=== PATIENT | male | born 1965 | race Caucasian/White ===

== ENCOUNTER 2017-09-09 15:44 | Emergency (ER) | payer OTHER ==
[2017-09-09 16:42] VITALS: BP 146/86; PULSE 82; TEMP 97.7; BMI 18.8
[2017-09-09] MEDS ORDERED: SODIUM CHLORIDE 1,000 ML IV STA (17:03)
[2017-09-09] MEDS ORDERED: MAGNESIUM SULF 50% (8.12 MEQ/2 ML-1 GM VIAL) IVPB ONE (17:03)
[2017-09-09] MEDS ORDERED: MAGNESIUM SULF 50% (8.12 MEQ/2 ML-1 GM VIAL) ONE (17:21)
[2017-09-09 17:24] LABS: MCH 33.6 pg (25.7-33.7); MCHC 33.5 g/dl (32.0-35.9); MEAN CELL VOLUME 100.2 fl (80-96); MEAN PLT VOLUME 8.5 fl (7.5-11.1); PLATELET COUNT 188 K/MM3 (134-434); RDW 14.9 % (11.9-15.9)
[2017-09-09 18:03] LABS: ALBUMIN 4.1 g/dl (3.4-5.0); ALK PHOS 68 U/L (45-117); ANION GAP 11 (8-16); BILIRUBIN,TOTAL 0.4 mg/dL (0.2-1.0); CALCIUM 8.4 mg/dL (8.5-10.1); CO2 21 mmol/L (21-32); CREATININE 0.8 mg/dL (0.7-1.3); GLUCOSE,RANDOM 120 mg/dL (74-106); SGOT/AST 107 U/L (15-37); SGPT/ALT 47 U/L (12-78); TOT PROT 8.4 g/dl (6.4-8.2)
[2017-09-09 18:08] LABS: PLATELET COMMENT2 NO CLOTTING DETECTED; PLATELET ESTIMATE ADEQUATE (NORMAL)
[2017-09-09 18:09] LABS: BASOPHIL (MANUAL) 1 % (0-2.0); REACTIVE LYMPHOCYTES 6 % (0-80); TOTAL CELLS COUNTED 100
--- NOTE | 2017-09-09 18:10 | PDOC ---
History of Present Illness - General Chief Complaint: Alcohol intoxication Stated Complaint: INTOX Time Seen by Provider: 09/09/17 16:31 - History of Present Illness Initial Comments: 09/09/17 18:04 The patient is a 51 year old male with a history of alcohol abuse, polysubstance abuse, DM who presents for evaluation of intoxication. The patient is accompanied by his girlfriend who assists in providing the history. The girlfriend reports that the patient drank a bottle of rum today and was appearing very intoxicated on the couch earlier this evening. She states that he slipped off the couch and fell on the floor. The patient denies falling and denies any pain or injuries. The patient's girlfriend reports that she was concerned that he was going to from alcohol poisoning and called EMS for presentation to the ED for evaluation. The patient denies any fevers, chills, SOB, chest pain, nausea, vomiting, abdominal pain, or changes with urination or bowel movements. Past History - Past Medical History Allergies/Adverse Reactions: Allergies Allergy/AdvReac Type Severity Reaction Status Date / Time No Known Allergies Allergy Verified 09/09/17 16:42 Home Medications: Ambulatory Orders Zolpidem Tartrate [Ambien] 10 mg PO HS PRN #0 tablet 06/27/13 Ramipril [Altace] 10 mg PO DAILY 01/15/15 Levetiracetam [Keppra -] 500 mg PO BID #60 tablet 01/18/15 Amoxicillin - [Amoxicillin 500mg Capsule -] 500 mg PO DAILY 09/30/16 Insulin (Novolog 70/30) [Novolog Mix 70/30 Flexpen -] 8 units SQ DAILY 09/30/16 Naproxen 250 mg PO TID 09/30/16 Anemia: No Asthma: No Diabetes: Yes Disorders: No Liver Disease: No Seizures: Yes Thyroid Disease: No - Immunization History Immunization Up to Date: Yes - Suicide/Smoking/Psychosocial Hx Smoking Status: Yes Smoking History: Unknown if ever smoked Have you smoked in the past 12 months: Yes Number of Cigarettes Smoked Daily: 20 Information on smoking cessation initiated: No 'Breaking Loose' booklet given: 05/03/14 Hx Alcohol Use: No Drug/Substance Use Hx: No Substance Use Type: Alcohol Hx Substance Use Treatment: No Review of Systems - Review of Systems Comments:: 09/09/17 18:08 Constitutional: No fevers, chills, fatigue, malaise HEENT: No Rhinorrhea, nasal congestion, Cardiovascular: No chest pain, syncope, palpitations, lightheadedness Respiratory: No Cough, SOB, Hemoptysis, Gastrointestinal: No Abdominal pain, Nausea, Vomiting, Constipation, Diarrhea, Genitourinary: No Dysuria, Frequency, Urgency, Hesitancy, Hematuria, Musculoskeletal: No Myalgia, arthralgia Skin: No rashes, bruising, pallor Neurologic: No Headache, Dizziness, Numbness, Weakness, or Tingling *Physical Exam - Vital Signs Last Vital Signs Temp Pulse Resp BP Pulse Ox 97.7 F 82 18 146/86 100 09/09/17 15:44 09/09/17 15:44 09/09/17 15:44 09/09/17 15:44 09/09/17 15:44 - Physical Exam Comments: 09/09/17 18:09 General Appearance: Nourished. Intoxicated. Alcohol on breath. No Apparent Distress HEENT: EOMI, PRAVIN. No obvious signs of head trauma. Neck: No Cervical Lymphadenopathy Respiratory/Chest: Lungs Clear, Normal Breath Sounds. No Crackles, Rales, Rhonchi, Wheezing Cardiovascular: Regular Rhythm, Regular Rate. No Murmur, Gallops, Rubs Gastrointestinal/Abdominal: Normal Bowel Sounds, Soft. 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 ED Treatment Course - LABORATORY CBC & Chemistry Diagram: 09/09/17 17:15 09/09/17 17:11 - ADDITIONAL ORDERS Additional order review: 09/09/17 17:15 RBC 3.61 L MCV 100.2 H MCHC 33.5 RDW 14.9 D MPV 8.5 Neutrophils % 31.6 L D Lymphocytes % 59.9 H D Monocytes % 5.5 Eosinophils % 1.7 D Basophils % 1.3 - Medications Given in the ED: ED Medications Discontinued Medications Generic Name Dose Route Start Last Admin Trade Name Freq PRN Reason Stop Dose Admin Sodium Chloride 1,000 mls @ 1,000 mls/hr 09/09/17 17:03 09/09/17 17:26 Normal Saline - IV 09/09/17 18:02 1,000 mls/hr ASDIR STA Administration Magnesium Sulfate 2 gm 09/09/17 17:03 09/09/17 17:26 Magnesium Sulfate IVPB 09/09/17 17:04 2 gm ONCE ONE Administration Medical Decision Making - Medical Decision Making 09/09/17 18:09 The patient is a 51 year old male with a history of alcohol abuse, polysubstance abuse, DM who presents for evaluation of intoxication. The patient is alert on exam although visibly intoxicated. It is likely his symptoms are due to his alcohol use. However given his significant history of DM, we will obtain a cbc, cmp, acetone to evaluate for metabolic derangement and other etiologies. We will hydrate the patient with a 1L NS bolus. We will continue to monitor and reassess. 09/09/17 18:48 cbc, cmp acetone are unremarkable. The patient reports improvement in his symptoms and is able to ambulate without difficulty. 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 We are comfortable discharging the patient home at this time with PCP follow up. We counselled him on the importance of stopping drinking. *DC/Admit/Observation/Transfer Diagnosis at time of Disposition: Intoxication - Discharge Dispostion Disposition: HOME Condition at time of disposition: Improved Admit: No - Referrals Referrals: Cassidy Mac MD [Primary Care Provider] - - Patient Instructions Printed Discharge Instructions: DI for Alcohol Abuse Additional Instructions: Please return to the ER if you experience concerning or worsening symptoms. Please call to schedule a follow up appointment with your primary care provider to discuss your ER visit. Please keep your alcohol consumption to a minimum.
--- NOTE | 2017-09-09 19:06 | PDOC ---
Attending Attestation - Resident Resident Name: YolisHeriberto - ED Attending Attestation I have performed the following: I have examined & evaluated the patient, The case was reviewed & discussed with the resident, I agree w/resident's findings & plan, Exceptions are as noted - HPI HPI: 09/09/17 18:59 51 yo male seated un wheelchair after being BIBA from home for etoh intox, Girlfriend returned home to find him on the sofa and became concerned. The pt said she was celebrating a "special day" with a bottle of rum. Pt is conversant - Physicial Exam PE: 09/10/17 03:32 sl disheveled 51 yo male in no acute distress HEENT head atraumatic, eyes dacia eomi neck supple lungs cta b/l cvs [id number] abd nontender neuro pt was ambulatory and conversant at time of discharge,had AOB - Medical Decision Making 09/10/17 03:35 pt discharged home after girlfriend came and took him home
[2017-09-09 19:32] LABS: URINE MARIJUANA THC NEGATIVE ng/ml (CUTOFF=50)
== END 2017-09-09 19:06 | disposition home or self-care (01) ==
LOC: JER 15:44
PROC: 3E033GC Introduction of Other Therapeutic Substance into Peripheral Vein, Percutaneous Approach (ICD-10-PCS; principal; 2017-09-09)
DX: F10.120 Alcohol abuse with intoxication, uncomplicated (principal); Y90.9 Presence of alcohol in blood, level not specified; E11.9 Type 2 diabetes mellitus without complications; Z79.4 Long term (current) use of insulin; G40.909 Epilepsy, unspecified, not intractable, without status epilepticus
CPT/HCPCS: 36415; 80053; 80307; 82009; 85025; 96374; 99282-25

== ENCOUNTER 2017-12-30 12:41 | Observation (INO) | payer OTHER ==
[2017-12-30] MEDS ORDERED: LORazepam 2 MG/ML SDV VIAL ONE (12:50)
--- NOTE | 2017-12-30 13:12 | PDOC ---
History of Present Illness - General Chief Complaint: Seizure Stated Complaint: SEIZURE Time Seen by Provider: 12/30/17 12:58 - History of Present Illness Initial Comments: 12/30/17 13:23 The patient is a 52 year old male with a history of seizures, alcohol abuse, polysubstance abuse, DM who presents for evaluation of seizures. The patient is accompanied by his girlfriend who assists in providing the history. She reports that the patient was taking his morning medications when he has an episode of difficulty talking prior to experiencing a tonic-clonic seizure lasting 90 seconds. The patient was reportedly post-ictal for 15 min prior to returning to baseline. The patient reports that he has been experiencing cold like symptoms over the past week including body aches and subjective fevers. He notes that he is a daily drinker with his last drink was late yesterday evening. The patient denied chills, SOB, chest pain, nausea, vomiting, abdominal pain, or changes with urination or bowel movements. The patient proceeded to have another tonic-clonic seizure while history was being taking in the ED and received 2mg of ativan with the seizure breaking. The patient is now in a post-ictal state. The patient's last seizure was reportedly 2 years ago. Past History - Past Medical History Allergies/Adverse Reactions: Allergies Allergy/AdvReac Type Severity Reaction Status Date / Time No Known Allergies Allergy Verified 12/30/17 13:02 Home Medications: Ambulatory Orders Zolpidem Tartrate [Ambien] 10 mg PO HS PRN #0 tablet 06/27/13 Ramipril [Altace] 10 mg PO DAILY 01/15/15 levETIRAcetam [Keppra -] 500 mg PO BID #60 tablet 01/18/15 Amoxicillin - [Amoxicillin 500mg Capsule -] 500 mg PO DAILY 09/30/16 Insulin (Novolog 70/30) [Novolog Mix 70/30 Flexpen -] 8 units SQ DAILY 09/30/16 Naproxen 250 mg PO TID 09/30/16 Anemia: No Asthma: No COPD: No Diabetes: Yes Disorders: No Liver Disease: No Seizures: Yes Thyroid Disease: No Other medical history: alcoholism drinks a lot everyday. - Immunization History Immunization Up to Date: Yes - Suicide/Smoking/Psychosocial Hx Smoking Status: Yes Smoking History: Unknown if ever smoked Have you smoked in the past 12 months: Yes Number of Cigarettes Smoked Daily: 20 Information on smoking cessation initiated: No 'Breaking Loose' booklet given: 05/03/14 Hx Alcohol Use: No Drug/Substance Use Hx: No Substance Use Type: Alcohol Hx Substance Use Treatment: No Review of Systems - Review of Systems Comments:: 12/30/17 13:31 Constitutional: Body aches. No chills, fatigue, HEENT: No Rhinorrhea, nasal congestion, visual changes Cardiovascular: No chest pain, syncope, palpitations, lightheadedness Respiratory: No Cough, SOB, Hemoptysis, Gastrointestinal: No Abdominal pain, Nausea, Vomiting, Constipation, Diarrhea, Melena Genitourinary: No Dysuria, Frequency, Urgency, Hesitancy, Hematuria, Flank pain Musculoskeletal: No Myalgia, arthralgia Skin: No rashes, itching, bruising, pallor Neurologic: Seizure. No Headache, Dizziness, Numbness, Weakness, or Tingling Psychiatric: No Hallucinations. No SI or HI *Physical Exam - Vital Signs Last Vital Signs Temp Pulse Resp BP Pulse Ox 99.4 F 130 H 8 L 142/56 75 L 12/30/17 13:03 12/30/17 12:50 12/30/17 12:50 12/30/17 12:50 12/30/17 12:50 - Physical Exam Comments: 12/30/17 13:32 General Appearance: Nourished. No Apparent Distress HEENT: EOMI, PRAVIN. No Pharyngeal Erythema, Tonsillar Exudate, Tonsillar Erythema Neck: No Cervical Lymphadenopathy Respiratory/Chest: Lungs Clear, Normal Breath Sounds. No Crackles, Rales, Rhonchi, Wheezing Cardiovascular: Regular Rhythm, Regular Rate. No Murmur, Gallops, Rubs Gastrointestinal/Abdominal: Normal Bowel Sounds, Soft. 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 Heart Score/ECG Review #1 ECG reviewed & interpreted by me at: 14:57 General ECG Interpretation: Sinus Rhythm, Normal Rate, Normal Intervals, No acute ischemic changes ED Treatment Course - LABORATORY CBC & Chemistry Diagram: 12/30/17 13:15 12/30/17 13:15 - RADIOLOGY Radiology Studies Ordered: Category Date Time Status CHEST X-RAY PORTABLE* [RAD] Stat Radiology 12/30/17 12:59 Ordered Medical Decision Making - Medical Decision Making 12/30/17 13:42 The patient is a 52 year old male with a history of seizures, alcohol abuse, polysubstance abuse, DM who presents for evaluation of seizures. Differential includes but is not limited to: Infectious, Hyperglycemia, Break through seizure , metabolic derangement. The patient had a witnessed seizure here in the ED with it breaking with 2mg of ativan. We will obtain a cbc, cmp, alcohol level, chest plain film, head ct to evaluate for other etiologies. Dr. Mac requested consultation with Dr. Mccarthy with neurology given that this is a change from baseline. Dr. Valderrama is covering for Dr. Mccarthy and we discussed the case with Dr. Valderrama who recommended that we give 500mg of iv keppra here in the ED and he will evaluate the patient. We will continue to monitor and reassess. 12/30/17 17:01 CBC, cmp, alcohol level are unremarkable. Chest plain film and head CT are unremarkable as read by our radiologist. The patient's lactate is elevated likely due to his seizure here in the ED and we will repeat it. We discussed the case with Dr. Mac who accepted the patient for admission. *DC/Admit/Observation/Transfer Diagnosis at time of Disposition: Seizure Qualifiers: Convulsion type: unspecified Qualified Code(s): R56.9 - Unspecified convulsions - Discharge Dispostion Condition at time of disposition: Stable Admit: Yes - Referrals Referrals: Cassidy Mac MD [Primary Care Provider] - - Patient Instructions - Post Discharge Activity
[2017-12-30] MEDS ORDERED: levETIRAcetam 500 MG/5 ML INJECTION VIAL IVPB ONE ×2 (13:37→13:56)
[2017-12-30 14:23] LABS: BASO % 1.1 % (0-2.0); EOS % 1.8 % (0-4.5); HEMATOCRIT 33.7 % (35.4-49); HEMOGLOBIN 10.7 GM/dL (11.7-16.9); LYMPH % 34.3 % (8-40); MCH 32.7 pg (25.7-33.7); MCHC 31.7 g/dl (32.0-35.9); MEAN CELL VOLUME 103.3 fl (80-96); NEUT % 51.8 % (42.8-82.8); PLATELET COUNT 139 K/MM3 (134-434); RBC 3.26 M/mm3 (4.00-5.60); RDW 14.4 % (11.9-15.9); WHITE BLOOD COUNT 7.9 K/mm3 (4.0-10.0)
--- NOTE | 2017-12-30 14:28 | PDOC ---
Attending Attestation - Resident Resident Name: Heriberto Lagos - ED Attending Attestation I have performed the following: I have examined & evaluated the patient, The case was reviewed & discussed with the resident, I agree w/resident's findings & plan, Exceptions are as noted - HPI HPI: 12/30/17 14:23 52 year old male c/ pmh seizure disorder on keppra (reportedly adherent), alcohol abuse, DM, left foot wound BIBEMS seizure. Today, the patient started to have one episode of grand mal seizure. The patient was postictal and EMS was activated. Last alcohol use was yesterday, but pt's girlfriend doesn't think he was tremulous. He has been having some URI-like symptoms and has been caring to his chronic left foot wound. While in the ED, the patient had another episode of grand mal seizure that resolved on its own. Pt given 2 mg IV ativan. And pt was postical. Denies cough, vomiting, diarrhea. - Physicial Exam PE: 12/30/17 14:26 GENERAL: Awake but post-ictal in no acute distress. HEAD: No signs of trauma EYES: PERRLA, EOMI, sclera anicteric, conjunctiva clear ENT: Auricles normal inspection, hearing grossly normal, nares patent, NECK: Normal ROM, supple, no lymphadenopathy, JVD, or masses LUNGS: Breath sounds equal, clear to auscultation bilaterally. No wheezes, and no crackles HEART: Regular rate and rhythm, normal S1 and S2, no murmurs, rubs or gallops ABDOMEN: Soft, nontender. No guarding, no rebound. No masses EXTREMITIES: Normal range of motion, no edema. No clubbing or cyanosis. No cords, erythema, or tenderness NEUROLOGICAL: Cranial nerves II through XII grossly intact. Appears to be moving all extremities grossly. SKIN: ~2x2 cm left plantar surface foot ulcer - Medical Decision Making 12/30/17 14:27 Vital Signs Temp Pulse Resp BP Pulse Ox 99.4 F 91 H 18 140/75 100 12/30/17 13:03 12/30/17 14:03 12/30/17 14:03 12/30/17 14:03 12/30/17 14:03 Pt likely with seizure likely 2/2 with epilepsy. Will r/o secondary causes i.e. hypoglycemia, hyponatremia. Dr. Lagos discussed case with Dr. Valderrama (neuro). Will start IV keppra. Neuro checks. Given multiple seizures in one day, admission to the hospital. Heart Score/ECG Review #1 ECG reviewed & interpreted by me at: 13:50 12/30/17 14:52 NSR 96, no std/adis, normal axis, normal intervals, QTC 452 msec
[2017-12-30 14:48] LABS: ALBUMIN 3.5 g/dl (3.4-5.0); ALK PHOS 77 U/L (45-117); ANION GAP 21 (8-16); BILIRUBIN,TOTAL 0.3 mg/dL (0.2-1.0); BLOOD UREA NITROGEN 13 mg/dL (7-18); CALCIUM 8.9 mg/dL (8.5-10.1); CHLORIDE 101 mmol/L (98-107); CO2 15 mmol/L (21-32); CREATININE 1.1 mg/dL (0.7-1.3); GLUCOSE,RANDOM 65 mg/dL (74-106); POTASSIUM 3.4 mmol/L (3.5-5.1); SGOT/AST 100 U/L (15-37); SGPT/ALT 44 U/L (12-78); SODIUM 137 mmol/L (136-145); TOT PROT 7.9 g/dl (6.4-8.2)
--- NOTE | 2017-12-30 16:01 | CONSULT ---
Consult - text type - Consultation Consultation Note: Neurology History of Present Illness The patient is a 52 year old male with a history of seizures, alcohol abuse, polysubstance abuse, DM who presents for evaluation of seizures. Reportedly, the patient was taking his morning medications when he has an episode of difficulty talking prior to experiencing a tonic-clonic seizure lasting 90 seconds. The patient was reportedly post-ictal for 15 min prior to returning to baseline. The patient reports that he has been experiencing cold like symptoms over the past week including body aches and subjective fevers. He notes that he is a daily drinker with his last drink was late yesterday evening and not considered etoh withdrawal seizure. The patient denied chills, SOB, chest pain, nausea, vomiting, abdominal pain, or changes with urination or bowel movements. The patient proceeded to have another tonic-clonic seizure while history was being taking in the ED and received 2mg of ativan with the seizure breaking. The patient did have post-ictal fatigue. Seen in ER and no abnormal movements. He was arousable and interactive. On, cammyr and advised ER to give additional dose of 500mg, should also increase to 750mg twice daily. CT head completed and without acute changes noted. Past History - Past Medical History Allergies/Adverse Reactions: Allergies Allergy/AdvReac Type Severity Reaction Status Date / Time No Known Allergies Allergy Verified 12/30/17 13:02 Home Medications: Ambulatory Orders Zolpidem Tartrate [Ambien] 10 mg PO HS PRN #0 tablet 06/27/13 Ramipril [Altace] 10 mg PO DAILY 01/15/15 levETIRAcetam [Keppra -] 500 mg PO BID #60 tablet 01/18/15 Amoxicillin - [Amoxicillin 500mg Capsule -] 500 mg PO DAILY 09/30/16 Insulin (Novolog 70/30) [Novolog Mix 70/30 Flexpen -] 8 units SQ DAILY 09/30/16 Naproxen 250 mg PO TID 09/30/16 Anemia: No Asthma: No COPD: No Diabetes: Yes Disorders: No Liver Disease: No Seizures: Yes Thyroid Disease: No Other medical history: alcoholism drinks a lot everyday. - Immunization History Immunization Up to Date: Yes - Suicide/Smoking/Psychosocial Hx Smoking Status: Yes Smoking History: Unknown if ever smoked Have you smoked in the past 12 months: Yes Number of Cigarettes Smoked Daily: 20 Information on smoking cessation initiated: No 'Breaking Loose' booklet given: 05/03/14 Hx Alcohol Use: No Drug/Substance Use Hx: No Substance Use Type: Alcohol Hx Substance Use Treatment: No Review of Systems Constitutional: Body aches. No chills, fatigue, HEENT: No Rhinorrhea, nasal congestion, visual changes Cardiovascular: No chest pain, syncope, palpitations, lightheadedness Respiratory: No Cough, SOB, Hemoptysis, Gastrointestinal: No Abdominal pain, Nausea, Vomiting, Constipation, Diarrhea, Melena Genitourinary: No Dysuria, Frequency, Urgency, Hesitancy, Hematuria, Flank pain Musculoskeletal: No Myalgia, arthralgia Skin: No rashes, itching, bruising, pallor Neurologic: Seizure. No Headache, Dizziness, Numbness, Weakness, or Tingling Psychiatric: No Hallucinations. No SI or HI *Physical Exam Vital Signs Temperature 99.4 F 12/30/17 13:03 Pulse Rate 91 H 12/30/17 14:03 Respiratory Rate 18 12/30/17 14:03 Blood Pressure 140/75 12/30/17 14:03 O2 Sat by Pulse Oximetry (%) 100 12/30/17 14:03 General Appearance: Nourished. No Apparent Distress HEENT: EOMI, PRAVIN. No Pharyngeal Erythema, Tonsillar Exudate, Tonsillar Erythema Neck: No Cervical Lymphadenopathy Respiratory/Chest: Lungs Clear, Normal Breath Sounds. No Crackles, Rales, Rhonchi, Wheezing Cardiovascular: Regular Rhythm, Regular Rate. No Murmur, Gallops, Rubs Gastrointestinal/Abdominal: Normal Bowel Sounds, Soft. 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, Alert, Normal Mood/Affect, Motor Strength 5/ 5, sensory intact, gait deferred CBCD WBC 7.9 K/mm3 (4.0-10.0) 12/30/17 13:15 RBC 3.26 M/mm3 (4.00-5.60) L 12/30/17 13:15 Hgb 10.7 GM/dL (11.7-16.9) L D 12/30/17 13:15 Hct 33.7 % (35.4-49) L 12/30/17 13:15 MCV 103.3 fl (80-96) H 12/30/17 13:15 MCHC 31.7 g/dl (32.0-35.9) L 12/30/17 13:15 RDW 14.4 % (11.9-15.9) 12/30/17 13:15 Plt Count 139 K/MM3 (134-434) D 12/30/17 13:15 MPV 9.0 fl (7.5-11.1) 12/30/17 13:15 CMP Sodium 137 mmol/L (136-145) 12/30/17 13:15 Potassium 3.4 mmol/L (3.5-5.1) L 12/30/17 13:15 Chloride 101 mmol/L (98-107) 12/30/17 13:15 Carbon Dioxide 15 mmol/L (21-32) L D 12/30/17 13:15 Anion Gap 21 (8-16) H 12/30/17 13:15 BUN 13 mg/dL (7-18) D 12/30/17 13:15 Creatinine 1.1 mg/dL (0.7-1.3) D 12/30/17 13:15 Creat Clearance w eGFR > 60 (>60) 12/30/17 13:15 Calcium 8.9 mg/dL (8.5-10.1) 12/30/17 13:15 Total Bilirubin 0.3 mg/dL (0.2-1.0) D 12/30/17 13:15 AST 100 U/L (15-37) H 12/30/17 13:15 ALT 44 U/L (12-78) 12/30/17 13:15 Alkaline Phosphatase 77 U/L (45-117) 12/30/17 13:15 Total Protein 7.9 g/dl (6.4-8.2) 12/30/17 13:15 Albumin 3.5 g/dl (3.4-5.0) 12/30/17 13:15 - RADIOLOGY CT head without acute changes Medical Decision Making 52 year old male with a history of seizures, alcohol abuse, polysubstance abuse , DM who presents for evaluation of seizures. Seen in ER and no abnormal movements. He was arousable and interactive. On keppra and advised ER to give additional dose of 500mg Should also increase Keppra to 750mg twice daily CT head completed and without acute changes noted Monitor for further seizures PO/IV hydration Monitor Etoh withdrawal Alcohol cessation recommended Tight glycemic control Maintain euglycemic state Monitor lyte
[2017-12-31 10:11] VITALS: BP 122/77; PULSE 78; TEMP 98.6
[2017-12-31 10:50] VITALS: BMI 18.8
--- NOTE | 2017-12-31 23:24 | EKG ---
Test Reason : Blood Pressure : / mmHG Vent. Rate : 096 BPM Atrial Rate : 096 BPM P-R Int : 156 ms QRS Dur : 088 ms QT Int : 358 ms P-R-T Axes : 076 074 067 degrees QTc Int : 452 ms NORMAL SINUS RHYTHM NONSPECIFIC ST ABNORMALITY ABNORMAL ECG WHEN COMPARED WITH ECG OF 15-JAN-2015 22:01, NO SIGNIFICANT CHANGE WAS FOUND Confirmed by PARAS MCKEON MD ([id number]) on 12/31/2017 11:24:16 PM Referred By: Confirmed By:PARAS MCKEON MD
== END 2017-12-31 10:15 | disposition home or self-care (01) ==
LOC: JER 12:41 → JERBED 17:14
PROVIDERS: ADMIT Internal Medicine; ATTEND Internal Medicine
PROC: 3E033GC Introduction of Other Therapeutic Substance into Peripheral Vein, Percutaneous Approach (ICD-10-PCS; principal; 2017-12-30)
DX: G40.802 Other epilepsy, not intractable, without status epilepticus (principal); E11.9 Type 2 diabetes mellitus without complications; F10.10 Alcohol abuse, uncomplicated; F19.10 Other psychoactive substance abuse, uncomplicated; Z79.4 Long term (current) use of insulin
CPT/HCPCS: 36415; 70450-TC; 71045-TC-FY; 80053; 80307; 83605; 85025; 93005; 93010; 96374; 96375; 99285-25; G0378

== ENCOUNTER 2018-03-31 15:10 | Inpatient (IN) | payer OTHER ==
[2018-03-31] MEDS ORDERED: PIPERACILLIN/TAZOB 3.375 GM 3.375 GM in DEXTROSE 5%-WATER - 50 ML IVPB ONE (16:32)
[2018-03-31] MEDS ORDERED: VANCOMYCIN 1,000 MG in DEXTROSE 5%-WATER - 250 ML IVPB ONE (16:32)
--- NOTE | 2018-03-31 16:35 | PDOC ---
Attending Attestation - HPI HPI: 03/31/18 16:37 The patient is a 52 year old male with a significant past medical history of seizure disorder, alcohol dependence and diabetes who presents to the ED with several months of a non healing wound on his foot. Patient reports several months of a wound to his left foot. He states his wound is progressively worsening, now swollen and erythematous. Patient states he has never been to wound care. Denies any other symptoms. Documentation prepared by Tabitha Briggs, acting as medical van driver for Carrie Fuentes MD - Physicial Exam PE: 03/31/18 16:38 GENERAL: + Cachectic Awake and alert. No acute distress. HEENT: Normocephalic, atraumatic. PERRLA, EOMI. No conjunctival pallor. Sclera are non- icteric. Moist mucous membranes. Oropharynx is clear. NECK: Supple. Full ROM. No JVD. Carotid pulses 2+ and symmetric, without bruits. No thyromegaly. No lymphadenopathy. CARDIOVASCULAR: + tachycardic, regular rhythm. No murmurs, rubs, or gallops. Distal pulses are 2+ and symmetric. PULMONARY: No evidence of respiratory distress. Lungs clear to auscultation bilaterally. No wheezing, rales or rhonchi. ABDOMINAL: Soft. Non-tender. Non-distended. No rebound or guarding. No organomegaly. Normoactive bowel sounds. MUSCULOSKELETAL Normal range of motion at all joints. No bony deformities or tenderness. No CVA tenderness. EXTREMITIES: + swollen left foot with a 2x2 cm left plantar foot ulcer that appears infectious. Left foot is erythematous. There is DP pulse. Full ROM of all extremities. SKIN: Warm and dry. Normal capillary refill. No rashes. No jaundice. NEUROLOGICAL: Alert, awake, appropriate. Cranial nerves 2-12 intact. No deficits to light touch and temperature in face, upper extremities and lower extremities. No motor deficits in the in face, upper extremities and lower extremities. Normoreflexic in the upper and lower extremities. Normal speech. Toes are down- going bilaterally. Gait is normal without ataxia. PSYCHIATRIC: Cooperative. Good eye contact. Appropriate mood and affect. <Tabitha Briggs - Last Filed: 03/31/18 16:37> - Resident Resident Name: Alfredo Haro - ED Attending Attestation I have performed the following: I have examined & evaluated the patient, The case was reviewed & discussed with the resident, I agree w/resident's findings & plan, Exceptions are as noted - HPI HPI: 03/31/18 16:34 52 yo male p/w swollen,tender erythematous left foot - Medical Decision Making 03/31/18 17:57 IMP- left foot cellulitis ,,chronic anemia.alcoholism -lactic acid 2.3 ADMIT med/surg <Carrie Fuentes - Last Filed: 03/31/18 17:59>
[2018-03-31] MEDS ORDERED: PIPERACILLIN/TAZOB 3.375 GM 3.375 GM/50 ML BAG IVPB ONE (17:03)
[2018-03-31] MEDS ORDERED: VANCOMYCIN 1 GRAM (PRE-DOCKED) 1,000 MG/250 ML BAG IVPB ONE (17:03)
[2018-03-31 17:25] LABS: HEMATOCRIT 27.6 % (35.4-49); HEMOGLOBIN 9.2 GM/dL (11.7-16.9); MCH 34.8 pg (25.7-33.7); MCHC 33.3 g/dl (32.0-35.9); MEAN CELL VOLUME 104.6 fl (80-96); MEAN PLT VOLUME 8.3 fl (7.5-11.1); PLATELET COUNT 165 K/MM3 (134-434); RBC 2.64 M/mm3 (4.00-5.60); RDW 13.7 % (11.9-15.9)
--- NOTE | 2018-03-31 17:35 | PDOC ---
History of Present Illness - General Chief Complaint: Loss of Appetite Stated Complaint: LOSS OF APPETITE Time Seen by Provider: 03/31/18 16:14 History Source: Patient Exam Limitations: No Limitations - History of Present Illness Initial Comments: 03/31/18 17:22 Patient is a 52M with history of seizures, alcohol abuse, polysubstance abuse and diabetes here today complaining of a wound to the inferior aspect of his left foot. He states that he is coming in today because the pain has increased in his left foot. Denies fevers, chills. Endorses nausea and decreased appetite. Denies vomiting. Patient states that his primary care doctor has been taking care of this wound, denies going to wound care. Patient's last drink was last night, drinks as much as he can afford daily. Past History - Past Medical History Allergies/Adverse Reactions: Allergies Allergy/AdvReac Type Severity Reaction Status Date / Time No Known Allergies Allergy Verified 03/31/18 15:20 Home Medications: Ambulatory Orders Zolpidem Tartrate [Ambien] 10 mg PO HS PRN #0 tablet 06/27/13 Ramipril [Altace] 10 mg PO DAILY 01/15/15 levETIRAcetam [Keppra -] 500 mg PO BID #60 tablet 01/18/15 Amoxicillin - [Amoxicillin 500mg Capsule -] 500 mg PO DAILY 09/30/16 Insulin (Novolog 70/30) [Novolog Mix 70/30 Flexpen -] 8 units SQ DAILY 09/30/16 Naproxen 250 mg PO TID 09/30/16 Anemia: No Asthma: No COPD: No Diabetes: Yes Disorders: No Liver Disease: No Seizures: Yes Thyroid Disease: No - Immunization History Immunization Up to Date: Yes - Suicide/Smoking/Psychosocial Hx Smoking Status: Yes Smoking History: Unknown if ever smoked Have you smoked in the past 12 months: Yes Number of Cigarettes Smoked Daily: 20 Information on smoking cessation initiated: No 'Breaking Loose' booklet given: 05/03/14 Hx Alcohol Use: No Drug/Substance Use Hx: No Substance Use Type: Alcohol Hx Substance Use Treatment: No Review of Systems - Review of Systems Comments:: 03/31/18 17:35 GENERAL/CONSTITUTIONAL: No fever or chills. No weakness. HEAD, EYES, EARS, NOSE AND THROAT: No change in vision. No sore throat. CARDIOVASCULAR: No chest pain or shortness of breath RESPIRATORY: No cough, wheezing, or hemoptysis. GASTROINTESTINAL: Positive for nausea. Negative for vomiting, diarrhea or constipation. GENITOURINARY: No dysuria, frequency, or change in urination. MUSCULOSKELETAL: Positive for left foot pain. No neck or back pain. SKIN: No rash NEUROLOGIC: No headache, vertigo, loss of consciousness, or change in strength/ sensation. HEMATOLOGIC/LYMPHATIC: No anemia, easy bleeding, or history of blood clots. ALLERGIC/IMMUNOLOGIC: No hives or skin allergy. *Physical Exam - Vital Signs Last Vital Signs Temp Pulse Resp BP Pulse Ox 98.1 F 110 H 20 118/69 100 03/31/18 15:16 03/31/18 15:16 03/31/18 15:16 03/31/18 15:16 03/31/18 15:16 - Physical Exam Comments: 03/31/18 17:35 GENERAL: Awake, alert, and fully oriented, in no acute distress L FOOT: 2x2cm area of ulceration with deep defect, tender diffusely, erythematous to ankle. 2+ dp pulse, normal ROM HEAD: No signs of trauma, normocephalic, atraumatic EYES: PERRLA, EOMI, sclera anicteric, conjunctiva clear ENT: Auricles normal inspection, hearing grossly normal, nares patent, oropharynx clear without exudates. Moist mucosa LUNGS: No distress, speaks full sentences, clear to auscultation bilaterally HEART: Regular rate and rhythm, normal S1 and S2, no murmurs, rubs or gallops, peripheral pulses normal and equal bilaterally. ABDOMEN: Soft, nontender, normoactive bowel sounds. No guarding, no rebound. No masses NEUROLOGICAL: Cranial nerves II through XII grossly intact. Normal speech, no focal sensorimotor deficits SKIN: Warm, Dry, normal turgor, no rashes or lesions noted. ED Treatment Course - LABORATORY CBC & Chemistry Diagram: 03/31/18 17:18 03/31/18 17:18 - RADIOLOGY Radiology Studies Ordered: Category Date Time Status CHEST X-RAY PORTABLE* [RAD] Stat Radiology 03/31/18 16:30 Taken FOOT-LEFT [RAD] Stat Radiology 03/31/18 16:30 Taken - Medications Given in the ED: ED Medications Discontinued Medications Generic Name Dose Route Start Last Admin Trade Name Freq PRN Reason Stop Dose Admin Piperacillin Sod/Tazobactam 50 mls @ 100 mls/hr 03/31/18 16:32 03/31/18 17:18 Sod 3.375 gm/ Dextrose IVPB 03/31/18 17:01 100 mls/hr ONCE ONE Administration Protocol Medical Decision Making - Medical Decision Making 03/31/18 17:37 Patient is 52M with history of DM, seizures, alcohol abuse, polysubstance abuse here today with diabetic foot wound. Vital signs notable for tachycardia. Afebrile. Will evaluate for possible osteo. Will treat with fluids, vanc, zosyn. 03/31/18 17:55 Laboratory Tests 03/31/18 03/31/18 03/31/18 07:05 17:18 17:18 WBC 7.0 Hgb 9.2 L D Plt Count 165 INR 1.19 H BUN 7 D Creatinine 0.7 D Random Glucose 72 L Troponin I < 0.02 C-Reactive Protein < 0.3 03/31/18 18:06 EKG shows normal sinus rhythm with rate of 85. No st elevations/depressions. No significant t wave abnormalities. Normal QRS/MO/QTc intervals. CXR clear, no signs of osteo on foot x-ray. Admitted via Dr Mabry. *DC/Admit/Observation/Transfer Diagnosis at time of Disposition: Diabetic foot ulcer - Discharge Dispostion Condition at time of disposition: Stable Decision to Admit order: Yes - Referrals Referrals: Cassidy Mac MD [Primary Care Provider] - - Patient Instructions - Post Discharge Activity
[2018-03-31 17:36] LABS: INR 1.19 (0.82-1.09); PROTHROMBIN TIME (PATIENT) 13.4 SEC (9.7-13.0)
[2018-03-31 17:46] LABS: ALBUMIN 3.4 g/dl (3.4-5.0); ANION GAP 8 (8-16); BILIRUBIN,TOTAL 0.4 mg/dL (0.2-1.0); BLOOD UREA NITROGEN 7 mg/dL (7-18); CALCIUM 8.1 mg/dL (8.5-10.1); CHLORIDE 108 mmol/L (98-107); CO2 20 mmol/L (21-32); CREATININE 0.7 mg/dL (0.7-1.3); GLUCOSE,RANDOM 72 mg/dL (74-106); POTASSIUM 3.9 mmol/L (3.5-5.1); SGOT/AST 63 U/L (15-37); SGPT/ALT 33 U/L (12-78); SODIUM 136 mmol/L (136-145); TOT PROT 7.8 g/dl (6.4-8.2)
[2018-03-31 17:48] LABS: ALK PHOS 69 U/L (45-117)
[2018-03-31] MEDS ORDERED: ACETAMINOPHEN 1000 MG/100 ML VIAL (NON FORMULARY) IVPB ONE (17:55)
[2018-03-31] MEDS ORDERED: SODIUM CHLORIDE 1,000 ML IV STA (17:55)
[2018-03-31] MEDS ORDERED: ACETAMINOPHEN INJECTION 100 ML IVPB ONE (17:56)
[2018-03-31 19:08] LABS: ERYTHROCYTE SEDIMENTATION RATE 44 mm/hr (0-20)
[2018-03-31] MEDS: SODIUM CHLORIDE 1,000 ML IV SCH (22:45)
[2018-03-31] MEDS ORDERED: levETIRAcetam 500 MG/5 ML INJECTION VIAL IVPB ONE (22:59)
--- NOTE | 2018-03-31 23:00 | RAPID ---
Physical Examination Vital Signs: Vital Signs Temperature 98.1 F 03/31/18 21:04 Pulse Rate 89 03/31/18 21:04 Respiratory Rate 18 03/31/18 21:04 Blood Pressure 118/69 03/31/18 15:16 O2 Sat by Pulse Oximetry (%) 100 03/31/18 21:04 Findings/Remarks: Rapid response called at 10:55pm, report given that patient having a seizure. On presentation, patient was post ictal, laying on his side. Physical Exam: Vitals HR: 98 BP: 157/73 O2 saturation: 100% 2L NC General: patient is somnolent, not responding to questioning Heart: RRR no murmurs Lungs: CTA Assessment: generalized seizure Plan: -2mg ativan given -loading dose keppra 1000mg -CBC, CMP, troponin, EKG -monitor HR/BP -urine toxicology -start on ativan detox for alcohol Labs: CBC, BMP 03/31/18 17:18 03/31/18 17:18
[2018-04-01 00:04] LABS: COCAINE, UR NEGATIVE ng/ml (CUTOFF=300); METHADONE, UR NEGATIVE ng/ml (CUTOFF=300); OPIATES, URI NEGATIVE ng/ml (CUTOFF=300); PHENCYCLIDINE,URINE NEGATIVE ng/ml (CUTOFF=25); URINE AMPHETAMINES NEGATIVE ng/ml (CUTOFF=500); URINE BARBITURATES NEGATIVE ng/ml (CUTOFF=200); URINE BENZODIAZEPINES NEGATIVE ng/ml (CUTOFF=200)
[2018-04-01 01:54] LABS: HEMATOCRIT 24.5 % (35.4-49); HEMOGLOBIN 8.1 GM/dL (11.7-16.9); MCH 34.6 pg (25.7-33.7); MCHC 33.2 g/dl (32.0-35.9); MEAN CELL VOLUME 104.3 fl (80-96); MEAN PLT VOLUME 8.5 fl (7.5-11.1); PLATELET COUNT 149 K/MM3 (134-434); RBC 2.35 M/mm3 (4.00-5.60); RDW 13.5 % (11.9-15.9); WHITE BLOOD COUNT 6.1 K/mm3 (4.0-10.0)
[2018-04-01] MEDS ORDERED: PIPERACILLIN/TAZOBACTAM 3.375 GM VIAL IVPB ONE ×2 (01:57→09:54)
[2018-04-01] MEDS ORDERED: DEXTROSE 5%-WATER - 50 ML IVPB ONE ×2 (01:58→09:54)
[2018-04-01] MEDS: PIPERACILLIN/TAZOB 3.375 GM 3.375 GM in DEXTROSE 5%-WATER - 50 ML IVPB SCH ×2 (02:16→09:57)
[2018-04-01 02:19] LABS: ALBUMIN 2.9 g/dl (3.4-5.0); ANION GAP 6 (8-16); BLOOD UREA NITROGEN 6 mg/dL (7-18); CALCIUM 7.3 mg/dL (8.5-10.1); CHLORIDE 107 mmol/L (98-107); CO2 24 mmol/L (21-32); GLUCOSE,RANDOM 107 mg/dL (74-106); MAGNESIUM 1.4 mg/dL (1.8-2.4); POTASSIUM 3.7 mmol/L (3.5-5.1); SODIUM 137 mmol/L (136-145)
[2018-04-01 03:18] LABS: ALK PHOS 58 U/L (45-117); BILIRUBIN,TOTAL 0.5 mg/dL (0.2-1.0); CREATININE 0.7 mg/dL (0.7-1.3); PHOSPHOROUS 2.9 mg/dL (2.5-4.9); SGOT/AST 54 U/L (15-37); TOT PROT 6.3 g/dl (6.4-8.2)
[2018-04-01 03:33] LABS: SGPT/ALT 27 U/L (12-78)
[2018-04-01] MEDS: INSULIN SLIDING SCALE (NOVOLOG) 1 VIAL SQ SCH ×4 (06:15→21:59)
[2018-04-01] MEDS ORDERED: PT OWN MED DRAWER 7, Y5N ONE ×2 (06:47→14:52)
--- NOTE | 2018-04-01 09:04 | CONSULT ---
Consult Detox [facility] Reason for Current Admission/Consult: substances use Referred by:: marcelle stover - History History of Present Illness: 52 year old male with a significant past medical history of seizure disorder, alcohol use disorder, drinks as much as he can, and diabetes who presents to the ED with several months of a non healing wound on his foot. Patient reports several months of a wound to his left foot. He states his wound is progressively worsening, now swollen and erythematous. Had seizure started on ativan/keppra, now stable. - History Source History Provided By: Medical Record - Alcohol/Substance Use Hx Alcohol Use: No - Current Drug/Alcohol Use Alcohol Route: Oral Frequency: Daily Amount used: as much as he can Date of Last Use: 03/31/18 - Past Medical History Endocrine: Yes: Diabetes Mellitus Assessment Plan - Diagnosis (1) Alcohol dependence with uncomplicated withdrawal Status: Acute (2) Diabetic foot ulcer Status: Acute (3) Alcoholic cirrhosis of liver Status: Acute (4) Pancreatitis, chronic Status: Acute (5) Seizure Status: Acute Qualifiers: Convulsion type: unspecified Qualified Code(s): R56.9 - Unspecified convulsions - Plan Plan: chart, labs, imaging reviewed. patient s/p seizure - alcohol withdrawwal seizure vs epilepsy. cont keppra, start libirum detox as ordered, use rn doses liberally, may use ativan iv if seizures recur. When medically stable consider inpatient rehab at [facility] if be available and insurance is accepted. fluids, vitamins, control glucose. - Medication Detox Regimen/Protocol: Librium
[2018-04-01] MEDS ORDERED: chlordiazePOXIDE HCL 25 MG CAPSULE PO PRN (09:06)
[2018-04-01] MEDS: NICOTINE 21 MG/24 HOURS TOPICAL PATCH TD SCH (09:57)
[2018-04-01] MEDS: levETIRAcetam 500 MG TABLET (FP) PO SCH ×2 (09:57→21:59)
[2018-04-01] MEDS ORDERED: chlordiazePOXIDE HCL 25 MG CAPSULE PO ONE (10:00)
[2018-04-01] MEDS: chlordiazePOXIDE HCL 25 MG CAPSULE PO SCH ×3 (11:00→23:26)
--- NOTE | 2018-04-01 12:59 | CON.ID ---
Consult Consult Specialty:: infectious diseases Referred by:: Reason for Consultation:: non healing ulcer of the foot - History of Present Illness Chief Complaint: non healing ulcer of the foot History of Present Illness: 52M with history of seizures, alcohol abuse, polysubstance abuse and diabetes here today complaining of a wound to the inferior aspect of his left foot. He states that he is coming in today because the pain has increased in his left foot. Denies fevers, chills. Endorses nausea and decreased appetite. Denies vomiting. Patient states that his primary care doctor has been taking care of this wound, denies going to wound care. Patient's last drink was last night, drinks as much as he can afford daily. events noted from last night patient had seizures episode and rapid response currently patient is starting to feel better - History Source History Provided By: Patient Limitations to Obtaining History: No Limitations - Past Medical History Endocrine: Yes: Diabetes Mellitus - Alcohol/Substance Use Hx Alcohol Use: No - Smoking History Smoking history: Unknown if ever smoked Have you smoked in the past 12 months: Yes Aproximately how many cigarettes per day: 20 Home Medications - Allergies Allergies/Adverse Reactions: Allergies Allergy/AdvReac Type Severity Reaction Status Date / Time No Known Allergies Allergy Verified 03/31/18 15:20 - Home Medications Home Medications: Ambulatory Orders Zolpidem Tartrate [Ambien] 10 mg PO HS PRN #0 tablet 06/27/13 Ramipril [Altace] 10 mg PO DAILY 01/15/15 levETIRAcetam [Keppra -] 500 mg PO BID #60 tablet 01/18/15 Amoxicillin - [Amoxicillin 500mg Capsule -] 500 mg PO DAILY 09/30/16 Insulin (Novolog 70/30) [Novolog Mix 70/30 Flexpen -] 8 units SQ DAILY 09/30/16 Naproxen 250 mg PO TID 09/30/16 Review of Systems - Review of Systems Constitutional: reports: No Symptoms Eyes: reports: No Symptoms HENT: reports: No Symptoms Neck: reports: No Symptoms Cardiovascular: reports: No Symptoms Respiratory: reports: No Symptoms Gastrointestinal: reports: No Symptoms Genitourinary: reports: No Symptoms Musculoskeletal: reports: No Symptoms Integumentary: reports: No Symptoms Neurological: reports: Other (seizure) Endocrine: reports: No Symptoms Hematology/Lymphatic: reports: No Symptoms Psychiatric: reports: No Symptoms Physical Exam Vital Signs: Vital Signs Temperature 98.2 F 04/01/18 09:00 Pulse Rate 87 04/01/18 09:00 Respiratory Rate 20 04/01/18 09:00 Blood Pressure 122/75 04/01/18 09:00 O2 Sat by Pulse Oximetry (%) 100 03/31/18 23:15 Constitutional: Yes: No Distress, Calm, Thin Eyes: Yes: Conjunctiva Clear HENT: Yes: Atraumatic Neck: Yes: Supple, Trachea Midline Cardiovascular: Yes: Regular Rate and Rhythm Respiratory: Yes: Regular, CTA Bilaterally Gastrointestinal: Yes: Normal Bowel Sounds, Soft Musculoskeletal: Yes: WNL Extremities: Yes: Other Wound/Incision: Yes: Clean/Dry, Other (wound open on the foot) Neurological: Yes: Alert, Oriented Psychiatric: Yes: Alert, Oriented Labs: CBC, BMP 04/01/18 01:40 04/01/18 01:40 Imaging - Results Chest X-ray: Report Reviewed, Image Reviewed X-ray: Report Reviewed, Image Reviewed Assessment/Plan dm non healing ulcer of the foot r/o osteo pain in the foot plan will continue zosyn will r/o osteo await for podiatry await for vascular will get mri
[2018-04-01] MEDS: PRENATAL VITAMINS W/ FOLIC ACID TABLET (FP) PO SCH (13:02)
[2018-04-01] MEDS ORDERED: COLLAGENASE CLOSTRIDIUM HIST. 30 GRAMS TUBE TP SCH (14:15)
--- NOTE | 2018-04-01 14:17 | PN ---
Progress Note (short form) - Note Progress Note: Surgery 52 yo male being treated and followed by Dr Mac for Left foot DM ulcer for @6 months and was doing well until he began to develop pain on Sunday evening and it got progressively worse. He presented to the ED in hopes for pain medication and was admitted for DM ulcer, r/o Osteomyletis. He states he felt febrile before presenting to ER but denies any CP/ SOB, N/V/D or chills. Vital Signs Temp 98.2 F 04/01/18 09:00 Pulse 87 04/01/18 09:00 Resp 20 04/01/18 09:00 BP 122/75 04/01/18 09:00 Pulse Ox 100 03/31/18 23:15 Intake & Output 03/31/18 04/01/18 04/01/18 23:59 11:59 23:59 Intake Total 1400 750 Balance 1400 750 Weight 128 lb 14.4 oz Intake: IV 1000 550 Normal Saline - 1,000 ml 1000 550 @ 1000 mls/hr IV ASDIR STA Rx#:[id number] IVPB 400 200 Other: Voiding Method Toilet # Unmeasured Voids Void 1 Bowel Movement No Height 5 ft 11 in Body Mass Index (BMI) 17.9 Weight Measurement Method Standing Scale CBC, BMP 04/01/18 01:40 04/01/18 01:40 PE: A&Ox 3, NAD unlabored resp on RA right LE compartments soft, supple and non-tender, no lesions or chronic changes , warm and well prefused, +2 DP/TP pulses, NVID Left LE compartments soft, supple and non-tender, no lesions or chronic skin changes, limb warm and well prefused, +2 DP/TP pulses. 2.5cmx2.5cm well defined ulcer over plantar aspect of foot inferior to 2nd digit. fibrinous exudates seen over base with cleft, no evidence of sinus track. no foul smell. Problem List - Problems (1) Diabetic foot ulcer Assessment/Plan: Acute on Chronic DM foot ulcer in who has followed closely with Dr Mac. 1) Follow up MRI left foot to r/o osteomylitis 2) IV ABX per ID 3) Santyl daily 4) off load area On behalf of Dr Sheldon thank you for the opportunity to participate in this patient's care Code(s): E11.621 - TYPE 2 DIABETES MELLITUS WITH FOOT ULCER; L97.509 - NON- PRESSURE CHRONIC ULCER OTH PRT UNSP FOOT W UNSP SEVERITY
[2018-04-01] MEDS ORDERED: ACETAMINOPHEN WITH CODEINE 300MG/30MG TABLET PO PRN (14:38)
[2018-04-01] MEDS: AMPICILLIN NA/SULBACTAM NA 3 GM in SODIUM CHLORIDE 100 ML IVPB SCH ×2 (15:21→18:07)
[2018-04-01] MEDS ORDERED: PIPERACILLIN/TAZOB 3.375 GM 3.375 GM in DEXTROSE 5%-WATER - 50 ML IVPB SCH (18:00)
[2018-04-01] MEDS: COLLAGENASE CLOSTRIDIUM HIST. 30 GRAMS TUBE TP SCH (18:12)
[2018-04-01] MEDS ORDERED: INSULIN (NOVOLOG) ASPART 100 UNITS/ML 10ML VIAL ONE ×2 (18:59→21:21)
[2018-04-01] MEDS: ACETAMINOPHEN WITH CODEINE 300MG/30MG TABLET PO PRN (19:01)
--- NOTE | 2018-04-01 19:45 | HP ---
DATE OF ADMISSION: 03/31/2018 This is a 52-year-old male known to have seizure disorder, alcohol abuse, diabetes, complaining of wound, left toe, left foot. He came to the ER. In the ER, found out to have an infected wound on the left toe, so was admitted. He had some increased left foot pain and also had a kind of chills but no fever. PHYSICAL EXAMINATION: Vital Signs: Today, BP 130/80, pulse 72, respirations 20, temperature 98. HEENT: Unremarkable. Neck: Supple. No JVD. Lungs: Clear. Heart: S1, S2 normal. No S3 or S4. Abdomen: Soft. Left Foot: Ulcer infected. There is minimal discharge present. LABORATORY REPORTS: WBC 6.1, hemoglobin 8.1, platelets 149. Electrolytes are normal. Blood sugar 107. IMPRESSION: 1. Nonhealing ulcer on the feet, rule out osteomyelitis. 2. Diabetes. PLAN: ID consult, IV antibiotics, and vascular surgery wound consult. Will follow. Rusty [id number]
[2018-04-01] MEDS: THIAMINE HCL 100 MG TABLET (FP) PO SCH (21:59)
[2018-04-01] MEDS: SODIUM CHLORIDE 1,000 ML IV SCH (23:25)
--- NOTE | 2018-04-01 23:50 | EKG ---
Test Reason : Blood Pressure : / mmHG Vent. Rate : 085 BPM Atrial Rate : 085 BPM P-R Int : 166 ms QRS Dur : 080 ms QT Int : 352 ms P-R-T Axes : 082 069 067 degrees QTc Int : 418 ms NORMAL SINUS RHYTHM NORMAL ECG WHEN COMPARED WITH ECG OF 30-DEC-2017 13:49, NO SIGNIFICANT CHANGE WAS FOUND Confirmed by PARAS MCKEON MD ([id number]) on 04/01/2018 11:49:58 PM Referred By: Confirmed By:PARAS MCKEON MD
[2018-04-02] MEDS: ACETAMINOPHEN WITH CODEINE 300MG/30MG TABLET PO PRN ×3 (00:08→22:25)
[2018-04-02] MEDS: AMPICILLIN NA/SULBACTAM NA 3 GM in SODIUM CHLORIDE 100 ML IVPB SCH ×3 (01:54→19:09)
[2018-04-02] MEDS: chlordiazePOXIDE HCL 25 MG CAPSULE PO SCH ×6 (05:38→22:30)
[2018-04-02] MEDS: INSULIN SLIDING SCALE (NOVOLOG) 1 VIAL SQ SCH ×4 (06:30→22:25)
[2018-04-02] MEDS ORDERED: PT OWN MED DRAWER 7, Y5N ONE ×3 (07:08→19:08)
--- NOTE | 2018-04-02 09:36 | PN ---
Progress Note, Physician Chief Complaint: Feels better History of Present Illness: freda Tejeda ID consult appreciated - Current Medication List Current Medications: Active Medications Acetaminophen/Codeine Phosphate (Tylenol # 3 -) 2 tab PO Q4H PRN PRN Reason: PAIN SCALE 6-10 Last Admin: 04/02/18 06:56 Dose: 2 tab Chlordiazepoxide HCl (Librium -) 25 mg PO [id number] AMADA Stop: 04/03/18 05:01 Chlordiazepoxide HCl (Librium -) 15 mg PO [id number] AMADA Stop: 04/04/18 05:01 Chlordiazepoxide HCl (Librium -) 25 mg PO Q4H PRN PRN Reason: WITHDRAWAL(CONT SUBST) Stop: 04/04/18 09:05 Collagenase (Santyl -) 1 applic TP DAILY [facility] Last Admin: 04/01/18 18:12 Dose: 1 applic Sodium Chloride (Normal Saline -) 1,000 mls @ 100 mls/hr IV ASDIR AMADA Last Admin: 04/01/18 23:25 Dose: 100 mls/hr Ampicillin Sodium/Sulbactam (Sodium 3 gm/ Sodium Chloride) 100 mls @ 200 mls/ hr IVPB Q8H-IV AAMDA Last Admin: 04/02/18 01:54 Dose: 200 mls/hr Insulin Aspart (Novolog Vial Sliding Scale -) 1 vial SQ ACHS AMADA PRN Reason: Protocol Last Admin: 04/02/18 06:30 Dose: 3 units Levetiracetam (Keppra -) 500 mg PO BID AMADA Last Admin: 04/01/18 21:59 Dose: 500 mg Lorazepam (Ativan Injection -) 2 mg IVPUSH Q6H PRN PRN Reason: WITHDRAWAL(CONT SUBST) Nicotine (Nicoderm Patch -) 21 mg TD DAILY [facility] Last Admin: 04/01/18 09:57 Dose: 21 mg Multivit/Folic Acid/Iron ( Vitamins (Sjr) -) 1 tab PO DAILY AMADA Last Admin: 04/01/18 13:02 Dose: 1 tab Thiamine HCl (Vitamin B1 -) 100 mg PO HS [facility] Last Admin: 04/01/18 21:59 Dose: 100 mg - Objective Vital Signs: Vital Signs Temperature 97.7 F 04/02/18 06:40 Pulse Rate 70 04/02/18 06:40 Respiratory Rate 20 /22/18 06:40 Blood Pressure 119/70 04/02/18 06:40 O2 Sat by Pulse Oximetry (%) 97 04/01/18 21:00 Constitutional: Yes: Anxious Eyes: Yes: WNL HENT: Yes: WNL Neck: Yes: WNL Cardiovascular: Yes: WNL Respiratory: Yes: WNL Gastrointestinal: Yes: Normal Bowel Sounds Edema: No Wound/Incision: Yes: Dressing Dry and Intact Neurological: Yes: Alert Labs: CBC, BMP 04/01/18 01:40 04/01/18 01:40 INR, PTT INR 1.19 (0.82-1.09) H 03/31/18 07:05 Assessment/Plan Replacement of Magnesium ordered
[2018-04-02] MEDS: PRENATAL VITAMINS W/ FOLIC ACID TABLET (FP) PO SCH (11:25)
[2018-04-02] MEDS: NICOTINE 21 MG/24 HOURS TOPICAL PATCH TD SCH (11:25)
[2018-04-02] MEDS: COLLAGENASE CLOSTRIDIUM HIST. 30 GRAMS TUBE TP SCH (11:25)
[2018-04-02] MEDS: levETIRAcetam 500 MG TABLET (FP) PO SCH ×2 (11:25→22:40)
[2018-04-02] MEDS: MEGESTROL ACETATE 400 MG/10 ML UNIT DOSE CUP PO SCH (12:28)
--- NOTE | 2018-04-02 15:09 | PN ---
Progress Note, Physician History of Present Illness: doing better no complaints awaiting for mri r - Current Medication List Current Medications: Active Medications Acetaminophen/Codeine Phosphate (Tylenol # 3 -) 2 tab PO Q4H PRN PRN Reason: PAIN SCALE 6-10 Last Admin: 04/02/18 06:56 Dose: 2 tab Chlordiazepoxide HCl (Librium -) 25 mg PO [id number] COUNTS INCLUDE 234 BEDS AT THE [facility] Stop: 04/03/18 05:01 Last Admin: 04/02/18 11:24 Dose: 25 mg Chlordiazepoxide HCl (Librium -) 15 mg PO [id number] AMADA Stop: 04/04/18 05:01 Collagenase (Santyl -) 1 applic TP DAILY COUNTS INCLUDE 234 BEDS AT THE [facility] Last Admin: 04/02/18 11:25 Dose: 1 applic Ampicillin Sodium/Sulbactam (Sodium 3 gm/ Sodium Chloride) 100 mls @ 200 mls/ hr IVPB Q8H-IV COUNTS INCLUDE 234 BEDS AT THE [facility] Last Admin: 04/02/18 11:27 Dose: 200 mls/hr Insulin Aspart (Novolog Vial Sliding Scale -) 1 vial SQ ACHS COUNTS INCLUDE 234 BEDS AT THE [facility] PRN Reason: Protocol Last Admin: 04/02/18 12:29 Dose: 6 units Levetiracetam (Keppra -) 500 mg PO BID COUNTS INCLUDE 234 BEDS AT THE [facility] Last Admin: 04/02/18 11:25 Dose: 500 mg Megestrol Acetate (Megace Oral Suspension -) 400 mg PO DAILY COUNTS INCLUDE 234 BEDS AT THE [facility] Last Admin: 04/02/18 12:28 Dose: 400 mg Nicotine (Nicoderm Patch -) 21 mg TD DAILY COUNTS INCLUDE 234 BEDS AT THE [facility] Last Admin: 04/02/18 11:25 Dose: 21 mg Multivit/Folic Acid/Iron ( Vitamins (Sjr) -) 1 tab PO DAILY COUNTS INCLUDE 234 BEDS AT THE [facility] Last Admin: 04/02/18 11:25 Dose: 1 tab Thiamine HCl (Vitamin B1 -) 100 mg PO HS COUNTS INCLUDE 234 BEDS AT THE [facility] Last Admin: 04/01/18 21:59 Dose: 100 mg - Objective Vital Signs: Vital Signs Temperature 97.8 F 04/02/18 12:45 Pulse Rate 72 04/02/18 12:45 Respiratory Rate 19 04/02/18 12:45 Blood Pressure 104/56 04/02/18 12:45 O2 Sat by Pulse Oximetry (%) 97 04/02/18 09:00 Constitutional: Yes: No Distress, Calm, Thin, Other Cardiovascular: Yes: Regular Rate and Rhythm Respiratory: Yes: Regular, CTA Bilaterally Gastrointestinal: Yes: Normal Bowel Sounds, Soft Musculoskeletal: Yes: WNL Extremities: Yes: Other Neurological: Yes: Alert, Oriented Psychiatric: Yes: Alert, Oriented Labs: CBC, BMP 04/01/18 01:40 04/01/18 01:40 INR, PTT INR 1.19 (0.82-1.09) H 03/31/18 07:05 Assessment/Plan dm non healing ulcer of the foot r/o osteo pain in the foot plan await for mri once patient stable will switch to oral will await for podiatry to see the patient
[2018-04-02 15:44] VITALS: BMI 17.8
--- NOTE | 2018-04-02 18:35 | CONSULT ---
Consult - text type - Consultation Consultation Note: Podiatry Consultation: Pleasant 52 year old DM M presents with non-healing L foot ulcer for about 6 months. Patient states that he began working which caused breakdown of the ulcer. Denies F/V/N/C/SOB/CP. AFebrile, VSS. PMHx: seizure disorder, ETOH abuse, DM Meds: noted ALL: NKMA DAVON: L foot: pedal pulses palpable, TG wnl, CFT brisk to all toes. There is a sub- second metatarsal diabetic ulcer with strong hypergranular base, central aspect of ulcer probes deep, no bone exposed, no purulence, no fluctuance, no ascending cellulitis, no signs of active infection. Mild tenderness to palpation. Blood Cx: no growth L foot XR: negative for osteomyelitis Imp: 52 year old DM M with L sub-metatarsal diabetic ulcer 1. IV abx 2. Local wound care 3. Agree with MRI L foot to evaluate for osteomyelitis 4. If positive, will discuss with patient met head resection and bone biopsy 5. Thank you for the courtesy of this consultation. Jose Lagos DPM
[2018-04-02] MEDS: THIAMINE HCL 100 MG TABLET (FP) PO SCH (22:25)
[2018-04-03] MEDS ORDERED: PT OWN MED DRAWER 7, Y5N ONE ×4 (01:48→10:42)
[2018-04-03] MEDS: AMPICILLIN NA/SULBACTAM NA 3 GM in SODIUM CHLORIDE 100 ML IVPB SCH ×2 (03:09→10:43)
[2018-04-03] MEDS: chlordiazePOXIDE HCL 25 MG CAPSULE PO SCH (06:37)
[2018-04-03] MEDS: INSULIN SLIDING SCALE (NOVOLOG) 1 VIAL SQ SCH ×4 (07:10→21:35)
--- NOTE | 2018-04-03 09:11 | PN ---
Progress Note, Physician Chief Complaint: Feels better History of Present Illness: Podiatric consult by Dr Winter - Current Medication List Current Medications: Active Medications Acetaminophen/Codeine Phosphate (Tylenol # 3 -) 2 tab PO Q4H PRN PRN Reason: PAIN SCALE 6-10 Last Admin: 04/02/18 22:25 Dose: 2 tab Chlordiazepoxide HCl (Librium -) 15 mg PO B2V-XSE ON LICENSE OF [facility] Stop: 04/04/18 05:01 Collagenase (Santyl -) 1 applic TP DAILY ON [facility] OF [facility] Last Admin: 04/02/18 11:25 Dose: 1 applic Ampicillin Sodium/Sulbactam (Sodium 3 gm/ Sodium Chloride) 100 mls @ 200 mls/ hr IVPB Q8H-IV ON LICENSE OF [facility] Last Admin: 04/03/18 03:09 Dose: 200 mls/hr Insulin Aspart (Novolog Vial Sliding Scale -) 1 vial SQ ACHS ON LICENSE OF [facility]; Protocol Last Admin: 04/03/18 07:10 Dose: 9 units Levetiracetam (Keppra -) 500 mg PO BID ON LICENSE OF [facility] Last Admin: 04/02/18 22:40 Dose: 500 mg Megestrol Acetate (Megace Oral Suspension -) 400 mg PO DAILY ON LICENSE OF [facility] Last Admin: 04/02/18 12:28 Dose: 400 mg Nicotine (Nicoderm Patch -) 21 mg TD DAILY ON [facility] OF [facility] Last Admin: 04/02/18 11:25 Dose: 21 mg Multivit/Folic Acid/Iron ( Vitamins (Sjr) -) 1 tab PO DAILY ON [facility] OF [facility] Last Admin: 04/02/18 11:25 Dose: 1 tab Thiamine HCl (Vitamin B1 -) 100 mg PO HS ON LICENSE OF [facility] Last Admin: 04/02/18 22:25 Dose: 100 mg - Objective Vital Signs: Vital Signs Temperature 97.9 F 04/03/18 06:00 Pulse Rate 69 04/03/18 06:00 Respiratory Rate 18 04/03/18 06:00 Blood Pressure 125/67 04/03/18 06:00 O2 Sat by Pulse Oximetry (%) 97 04/02/18 21:00 Constitutional: Yes: No Distress Eyes: Yes: WNL HENT: Yes: WNL Neck: Yes: WNL Cardiovascular: Yes: WNL Respiratory: Yes: WNL Gastrointestinal: Yes: WNL ...Rectal Exam: Yes: Deferred Genitourinary: Yes: WNL Edema: No Wound/Incision: Yes: Clean/Dry Neurological: Yes: Alert Labs: CBC, BMP 04/01/18 01:40 04/01/18 01:40 INR, PTT INR 1.19 (0.82-1.09) H 03/31/18 07:05 Assessment/Plan Will order anemia workups
[2018-04-03] MEDS: levETIRAcetam 500 MG TABLET (FP) PO SCH ×2 (10:42→21:35)
[2018-04-03] MEDS: PRENATAL VITAMINS W/ FOLIC ACID TABLET (FP) PO SCH (10:42)
[2018-04-03] MEDS: MEGESTROL ACETATE 400 MG/10 ML UNIT DOSE CUP PO SCH (10:43)
[2018-04-03] MEDS: NICOTINE 21 MG/24 HOURS TOPICAL PATCH TD SCH (10:43)
[2018-04-03] MEDS: COLLAGENASE CLOSTRIDIUM HIST. 30 GRAMS TUBE TP SCH (10:43)
--- NOTE | 2018-04-03 11:35 | PN ---
Progress Note (short form) - Note Progress Note: Podiatry F/U; Seen/evaluated at bedside, NAD. Pain controlled, denies F/V/N/C/SOB/CP. Afebrile. DAVON: L foot: pedal pulses palpable, TG wnl, CFT brisk to all toes. Sub-metatarsal diabetic ulcer strong granular base, hyperkeratotic borders, central area probing, no bone exposed, no purulence, no fluctuance, no cellulitis, no active SOIs. No tenderness to palpation. MRI L foot: report pending Imp: 52 year old DM M with L foot sub-metatarsal diabetic ulcer 1. Awaiting MRI report 2. Local wound care 3. If possible, will discuss with patient options for bone biopsy Jose Lagos DPM
[2018-04-03] MEDS: ACETAMINOPHEN WITH CODEINE 300MG/30MG TABLET PO PRN (11:47)
[2018-04-03] MEDS: chlordiazePOXIDE 5 MG CAPSULE PO SCH ×3 (11:49→23:04)
--- NOTE | 2018-04-03 15:02 | PN ---
Progress Note, Physician History of Present Illness: doing well no issues mri result noted - Current Medication List Current Medications: Active Medications Acetaminophen/Codeine Phosphate (Tylenol # 3 -) 2 tab PO Q4H PRN PRN Reason: PAIN SCALE 6-10 Last Admin: 04/03/18 11:47 Dose: 2 tab Chlordiazepoxide HCl (Librium -) 15 mg PO [id number] [facility] Stop: 04/04/18 05:01 Last Admin: 04/03/18 11:49 Dose: Not Given Collagenase (Santyl -) 1 applic TP DAILY [facility] Last Admin: 04/03/18 10:43 Dose: 1 applic Ceftriaxone Sodium 2 gm/ (Dextrose) 100 mls @ 200 mls/hr IVPB DAILY [facility]; Protocol Insulin Aspart (Novolog Vial Sliding Scale -) 1 vial SQ ACHS [facility]; Protocol Last Admin: 04/03/18 11:47 Dose: 6 units Levetiracetam (Keppra -) 500 mg PO BID [facility] Last Admin: 04/03/18 10:42 Dose: 500 mg Megestrol Acetate (Megace Oral Suspension -) 400 mg PO DAILY [facility] Last Admin: 04/03/18 10:43 Dose: 400 mg Nicotine (Nicoderm Patch -) 21 mg TD DAILY [facility] Last Admin: 04/03/18 10:43 Dose: 21 mg Multivit/Folic Acid/Iron ( Vitamins (Sjr) -) 1 tab PO DAILY [facility] Last Admin: 04/03/18 10:42 Dose: 1 tab Thiamine HCl (Vitamin B1 -) 100 mg PO HS [facility] Last Admin: 04/02/18 22:25 Dose: 100 mg - Objective Vital Signs: Vital Signs Temperature 9.1 F L 04/03/18 13:23 Pulse Rate 79 04/03/18 13:23 Respiratory Rate 18 04/03/18 13:23 Blood Pressure 121/69 04/03/18 13:23 O2 Sat by Pulse Oximetry (%) 97 04/03/18 09:00 Constitutional: Yes: No Distress, Calm Cardiovascular: Yes: Regular Rate and Rhythm Respiratory: Yes: Regular, CTA Bilaterally Gastrointestinal: Yes: Normal Bowel Sounds, Soft Musculoskeletal: Yes: WNL Extremities: Yes: Other Wound/Incision: Yes: Dressing Dry and Intact Neurological: Yes: Alert, Oriented Psychiatric: Yes: Alert, Oriented Labs: CBC, BMP 04/01/18 01:40 04/01/18 01:40 INR, PTT INR 1.19 (0.82-1.09) H 03/31/18 07:05 Assessment/Plan dm non healing ulcer of the foot r/o osteo pain in the foot mri result noted showing osteo patient will need long term care pharmacist treatment will switch to ceftriaxone iv will need another 4 weeks
[2018-04-03] MEDS ORDERED: DEXTROSE 5%-WATER 100 ML IVPB ONE (15:11)
[2018-04-03] MEDS: CEFTRIAXONE 2 GM in DEXTROSE 5%-WATER 100 ML IVPB SCH (15:18)
[2018-04-03] MEDS ORDERED: INSULIN (NOVOLOG) ASPART 100 UNITS/ML 10ML VIAL ONE (21:21)
[2018-04-03] MEDS: THIAMINE HCL 100 MG TABLET (FP) PO SCH (21:35)
[2018-04-04] MEDS: ACETAMINOPHEN WITH CODEINE 300MG/30MG TABLET PO PRN ×3 (01:03→22:08)
[2018-04-04] MEDS: chlordiazePOXIDE 5 MG CAPSULE PO SCH (04:05)
[2018-04-04] MEDS: INSULIN SLIDING SCALE (NOVOLOG) 1 VIAL SQ SCH ×4 (06:34→22:07)
[2018-04-04 07:14] LABS: BASO % 1.2 % (0-2.0); EOS % 2.1 % (0-4.5); HEMATOCRIT 26.2 % (35.4-49); HEMOGLOBIN 8.9 GM/dL (11.7-16.9); LYMPH % 44.5 % (8-40); MCH 35.9 pg (25.7-33.7); MCHC 33.9 g/dl (32.0-35.9); MEAN CELL VOLUME 106.1 fl (80-96); MEAN PLT VOLUME 7.8 fl (7.5-11.1); MONO % 11.6 % (3.8-10.2); NEUT % 40.6 % (42.8-82.8); PLATELET COUNT 212 K/MM3 (134-434); RBC 2.47 M/mm3 (4.00-5.60); RDW 13.6 % (11.9-15.9); WHITE BLOOD COUNT 7.7 K/mm3 (4.0-10.0)
[2018-04-04 07:38] LABS: ALBUMIN 2.7 g/dl (3.4-5.0); ANION GAP 8 (8-16); BILIRUBIN,TOTAL 0.6 mg/dL (0.2-1.0); BLOOD UREA NITROGEN 8 mg/dL (7-18); CALCIUM 8.4 mg/dL (8.5-10.1); CHLORIDE 108 mmol/L (98-107); CO2 24 mmol/L (21-32); CREATININE 0.8 mg/dL (0.7-1.3); GLUCOSE,RANDOM 244 mg/dL (74-106); POTASSIUM 4.1 mmol/L (3.5-5.1); SGOT/AST 18 U/L (15-37); SODIUM 140 mmol/L (136-145); TOT PROT 6.5 g/dl (6.4-8.2)
[2018-04-04 07:39] LABS: ALK PHOS 47 U/L (45-117)
--- NOTE | 2018-04-04 09:13 | PN ---
Progress Note, Physician Chief Complaint: Feels better History of Present Illness: MRI showed ostiomylits will need 4-6 weeks IV antibiotics Will discuss with ID - Current Medication List Current Medications: Active Medications Acetaminophen/Codeine Phosphate (Tylenol # 3 -) 2 tab PO Q4H PRN PRN Reason: PAIN SCALE 6-10 Last Admin: 04/04/18 01:03 Dose: 2 tab Collagenase (Santyl -) 1 applic TP DAILY [facility] Last Admin: 04/03/18 10:43 Dose: 1 applic Ceftriaxone Sodium 2 gm/ (Dextrose) 100 mls @ 200 mls/hr IVPB DAILY [facility]; Protocol Last Admin: 04/03/18 15:18 Dose: 200 mls/hr Insulin Aspart (Novolog Vial Sliding Scale -) 1 vial SQ ACHS [facility]; Protocol Last Admin: 04/04/18 06:34 Dose: 9 units Levetiracetam (Keppra -) 500 mg PO BID [facility] Last Admin: 04/03/18 21:35 Dose: 500 mg Megestrol Acetate (Megace Oral Suspension -) 400 mg PO DAILY [facility] Last Admin: 04/03/18 10:43 Dose: 400 mg Nicotine (Nicoderm Patch -) 21 mg TD DAILY [facility] Last Admin: 04/03/18 10:43 Dose: 21 mg Multivit/Folic Acid/Iron ( Vitamins (Sjr) -) 1 tab PO DAILY [facility] Last Admin: 04/03/18 10:42 Dose: 1 tab Thiamine HCl (Vitamin B1 -) 100 mg PO HS [facility] Last Admin: 04/03/18 21:35 Dose: 100 mg - Objective Vital Signs: Vital Signs Temperature 98.8 F 04/04/18 08:53 Pulse Rate 75 04/04/18 08:53 Respiratory Rate 18 04/04/18 08:53 Blood Pressure 120/80 04/04/18 08:53 O2 Sat by Pulse Oximetry (%) 98 04/03/18 21:00 Constitutional: Yes: No Distress Eyes: Yes: WNL HENT: Yes: WNL Neck: Yes: WNL Cardiovascular: Yes: WNL Respiratory: Yes: WNL Genitourinary: Yes: WNL Wound/Incision: Yes: Dressing Dry and Intact Labs: CBC, BMP 04/04/18 06:45 04/04/18 06:45 INR, PTT INR 1.19 (0.82-1.09) H 03/31/18 07:05 Assessment/Plan Continue IV antibiotics
[2018-04-04] MEDS ORDERED: PT OWN MED DRAWER 7, Y5N ONE ×3 (09:14→22:01)
[2018-04-04] MEDS ORDERED: DEXTROSE 5%-WATER 100 ML IVPB ONE (09:15)
[2018-04-04] MEDS: MEGESTROL ACETATE 400 MG/10 ML UNIT DOSE CUP PO SCH (09:18)
[2018-04-04] MEDS: CEFTRIAXONE 2 GM in DEXTROSE 5%-WATER 100 ML IVPB SCH (09:19)
[2018-04-04] MEDS: levETIRAcetam 500 MG TABLET (FP) PO SCH ×2 (09:19→22:08)
[2018-04-04] MEDS: NICOTINE 21 MG/24 HOURS TOPICAL PATCH TD SCH (09:19)
[2018-04-04] MEDS: PRENATAL VITAMINS W/ FOLIC ACID TABLET (FP) PO SCH (09:19)
[2018-04-04] MEDS ORDERED: PICC LINE 8 ML FLUSH PROTOCOL IVPUSH PRN (09:39)
[2018-04-04 09:52] LABS: SGPT/ALT 18 U/L (12-78)
--- NOTE | 2018-04-04 10:02 | PN ---
Progress Note (short form) - Note Progress Note: Podiatry F/U; Seen/evaluated at bedside, NAD. Pain controlled, denies F/V/N/C/SOB/CP. Afebrile, VSS. MRI report completed. DAVON: L foot: pedal pulses palpable, TG wnl, CFT brisk to all toes. Sub-second metatarsal diabetic ulcer hypergranular base, hyperkeratotic borders, central area deeper without probing to bone, no purulence, no fluctuance, no periwound erythema, no ascending cellulitis, no signs of active infection. No ischemic changes. MRI L foot: bone marrow edema proximal phalanx, ?abscess second metatarsal Imp: 52 year old DM M with L foot diabetic ulcer 1. IV abx per ID. MRI results reviewed with patient. Agree with assessment of ID, will need 4 more weeks IV abx. 2. Rehab placement. 3. Continue local wound care collagenase. 4. Rx surgical shoe. Discussed with patient the need for minimal weightbearing and partial weightbearing heel. 5. Will f/u in wound healing center. Jose Lagos DPM
[2018-04-04] MEDS: COLLAGENASE CLOSTRIDIUM HIST. 30 GRAMS TUBE TP SCH (11:34)
[2018-04-04 11:37] LABS: MACROCYTOSIS 1+; OVALOCYTE 1+
--- NOTE | 2018-04-04 12:24 | PN ---
Progress Note, Physician History of Present Illness: stable doing well no complaints plan to go to the long term for abx - Current Medication List Current Medications: Active Medications Acetaminophen/Codeine Phosphate (Tylenol # 3 -) 2 tab PO Q4H PRN PRN Reason: PAIN SCALE 6-10 Last Admin: 04/04/18 11:48 Dose: 2 tab Collagenase (Santyl -) 1 applic TP DAILY [facility] Last Admin: 04/04/18 11:34 Dose: 1 applic IV Flush (Picc Line Flush) 8 ml IVPUSH PRN PRN PRN Reason: Protocol Ceftriaxone Sodium 2 gm/ (Dextrose) 100 mls @ 200 mls/hr IVPB DAILY [facility]; Protocol Last Admin: 04/04/18 09:19 Dose: 200 mls/hr Insulin Aspart (Novolog Vial Sliding Scale -) 1 vial SQ ACHS [facility]; Protocol Last Admin: 04/04/18 11:10 Dose: 15 units Levetiracetam (Keppra -) 500 mg PO BID [facility] Last Admin: 04/04/18 09:19 Dose: 500 mg Megestrol Acetate (Megace Oral Suspension -) 400 mg PO DAILY [facility] Last Admin: 04/04/18 09:18 Dose: 400 mg Nicotine (Nicoderm Patch -) 21 mg TD DAILY [facility] Last Admin: 04/04/18 09:19 Dose: 21 mg Multivit/Folic Acid/Iron ( Vitamins (Sjr) -) 1 tab PO DAILY [facility] Last Admin: 04/04/18 09:19 Dose: 1 tab Thiamine HCl (Vitamin B1 -) 100 mg PO HS [facility] Last Admin: 04/03/18 21:35 Dose: 100 mg - Objective Vital Signs: Vital Signs Temperature 98.8 F 04/04/18 08:53 Pulse Rate 75 04/04/18 08:53 Respiratory Rate 18 04/04/18 08:53 Blood Pressure 120/80 04/04/18 08:53 O2 Sat by Pulse Oximetry (%) 98 04/04/18 09:00 Constitutional: Yes: No Distress, Calm, Thin Cardiovascular: Yes: Regular Rate and Rhythm Respiratory: Yes: Regular, CTA Bilaterally Gastrointestinal: Yes: Normal Bowel Sounds Musculoskeletal: Yes: WNL Extremities: Yes: Other Wound/Incision: Yes: Dressing Dry and Intact Neurological: Yes: Alert, Oriented Psychiatric: Yes: Alert, Oriented Labs: CBC, BMP 04/04/18 06:45 04/04/18 06:45 INR, PTT INR 1.19 (0.82-1.09) H 03/31/18 07:05 Assessment/Plan dm non healing ulcer of the foot osteo left foot pain in the foot plan podiatry note noted and plan noted patient to get abx for 4 more weeks will await for cx report
[2018-04-04] MEDS: THIAMINE HCL 100 MG TABLET (FP) PO SCH (22:09)
[2018-04-05] MEDS: INSULIN SLIDING SCALE (NOVOLOG) 1 VIAL SQ SCH ×3 (06:40→17:26)
[2018-04-05] MEDS: ACETAMINOPHEN WITH CODEINE 300MG/30MG TABLET PO PRN ×2 (07:27→18:14)
--- NOTE | 2018-04-05 09:17 | DS ---
Physical Examination Vital Signs: Vital Signs Temperature 98.2 F 04/05/18 05:55 Pulse Rate 69 04/05/18 05:55 Respiratory Rate 18 04/05/18 05:55 Blood Pressure 107/68 04/05/18 05:55 O2 Sat by Pulse Oximetry (%) 98 04/04/18 21:00 Findings/Remarks: Alcoholic with seizure disorder admitted with Lt foot ulcer Diagnosed to have ostiomylitis, needs IV antibiotics and PT for 4-6 weeks Constitutional: Yes: No Distress Eyes: Yes: WNL HENT: Yes: WNL Neck: Yes: WNL Cardiovascular: Yes: WNL Respiratory: Yes: WNL Gastrointestinal: Yes: WNL ...Rectal Exam: Yes: Deferred Renal/: Yes: WNL Musculoskeletal: Yes: Muscle Weakness Edema: No Wound/Incision: Yes: Clean/Dry Labs: CBC, BMP 04/04/18 06:45 04/04/18 06:45 Discharge Summary Reason For Visit: DIABETIC FOOT ULCER Current Active Problems Alcohol dependence with uncomplicated withdrawal (Acute) Diabetic foot ulcer (Acute) Macrocytic anemia (Acute) Nicotine dependence (Acute) Condition: Stable - Instructions Referrals: Cassidy Mac MD [Primary Care Provider] - - Home Medications Comprehensive Discharge Medication List: Ambulatory Orders Zolpidem Tartrate [Ambien] 10 mg PO HS PRN #0 tablet 06/27/13 Ramipril [Altace] 10 mg PO DAILY 01/15/15 levETIRAcetam [Keppra -] 500 mg PO BID #60 tablet 01/18/15 Amoxicillin - [Amoxicillin 500mg Capsule -] 500 mg PO DAILY 09/30/16 Insulin (Novolog 70/30) [Novolog Mix 70/30 Flexpen -] 8 units SQ DAILY 09/30/16 Naproxen 250 mg PO TID 09/30/16
[2018-04-05] MEDS ORDERED: DEXTROSE 5%-WATER 100 ML IVPB ONE (09:41)
[2018-04-05] MEDS ORDERED: PT OWN MED DRAWER 7, Y5N ONE ×2 (09:41→18:10)
[2018-04-05] MEDS: CEFTRIAXONE 2 GM in DEXTROSE 5%-WATER 100 ML IVPB SCH (10:10)
[2018-04-05] MEDS: MEGESTROL ACETATE 400 MG/10 ML UNIT DOSE CUP PO SCH (10:11)
[2018-04-05] MEDS: PRENATAL VITAMINS W/ FOLIC ACID TABLET (FP) PO SCH (10:11)
[2018-04-05] MEDS: NICOTINE 21 MG/24 HOURS TOPICAL PATCH TD SCH (10:11)
[2018-04-05] MEDS: levETIRAcetam 500 MG TABLET (FP) PO SCH (10:11)
--- NOTE | 2018-04-05 12:59 | PN ---
Progress Note, Physician History of Present Illness: patient doing well no issues - Current Medication List Current Medications: Active Medications Acetaminophen/Codeine Phosphate (Tylenol # 3 -) 2 tab PO Q4H PRN PRN Reason: PAIN SCALE 6-10 Last Admin: 04/05/18 07:27 Dose: 2 tab Collagenase (Santyl -) 1 applic TP DAILY [facility] Last Admin: 04/04/18 11:34 Dose: 1 applic IV Flush (Picc Line Flush) 8 ml IVPUSH PRN PRN PRN Reason: Protocol Vancomycin HCl 1,250 mg/ (Dextrose) 250 mls @ 250 mls/2 hr IVPB Q24H [facility]; Protocol Insulin Aspart (Novolog Vial Sliding Scale -) 1 vial SQ ACHS [facility]; Protocol Last Admin: 04/05/18 12:35 Dose: 15 units Levetiracetam (Keppra -) 500 mg PO BID [facility] Last Admin: 04/05/18 10:11 Dose: 500 mg Megestrol Acetate (Megace Oral Suspension -) 400 mg PO DAILY [facility] Last Admin: 04/05/18 10:11 Dose: 400 mg Nicotine (Nicoderm Patch -) 21 mg TD DAILY [facility] Last Admin: 04/05/18 10:11 Dose: 21 mg Multivit/Folic Acid/Iron ( Vitamins (Sjr) -) 1 tab PO DAILY [facility] Last Admin: 04/05/18 10:11 Dose: 1 tab Thiamine HCl (Vitamin B1 -) 100 mg PO HS [facility] Last Admin: 04/04/18 22:09 Dose: 100 mg - Objective Vital Signs: Vital Signs Temperature 98.2 F 04/05/18 05:55 Pulse Rate 69 04/05/18 05:55 Respiratory Rate 18 04/05/18 05:55 Blood Pressure 107/68 04/05/18 05:55 O2 Sat by Pulse Oximetry (%) 98 04/04/18 21:00 Constitutional: Yes: No Distress, Calm, Thin Cardiovascular: Yes: Regular Rate and Rhythm Respiratory: Yes: Regular, CTA Bilaterally Gastrointestinal: Yes: Normal Bowel Sounds, Soft Musculoskeletal: Yes: WNL Extremities: Yes: Other Neurological: Yes: Alert, Oriented Psychiatric: Yes: Alert, Oriented Labs: CBC, BMP 04/04/18 06:45 04/04/18 06:45 INR, PTT INR 1.19 (0.82-1.09) H 03/31/18 07:05 Assessment/Plan dm non healing ulcer of the foot osteo left foot pain in the foot plan podiatry note noted cx report noted probable mrsa finalization of the organism noted will stop ceftriaxone will switch to vanco
[2018-04-05] MEDS ORDERED: VANCOMYCIN 1,250 MG in DEXTROSE 5%-WATER - 250 ML IVPB SCH (15:00)
[2018-04-05 17:07] VITALS: BP 120/72; PULSE 72; TEMP 98.1
[2018-04-05] MEDS ORDERED: INSULIN (NOVOLOG) ASPART 100 UNITS/ML 10ML VIAL ONE (18:10)
--- NOTE | 2018-04-06 08:53 | EKG ---
Test Reason : Blood Pressure : / mmHG Vent. Rate : 102 BPM Atrial Rate : 102 BPM P-R Int : 170 ms QRS Dur : 080 ms QT Int : 346 ms P-R-T Axes : 082 076 079 degrees QTc Int : 450 ms POOR DATA QUALITY, INTERPRETATION MAY BE ADVERSELY AFFECTED SINUS TACHYCARDIA NONSPECIFIC ST ABNORMALITY ABNORMAL ECG WHEN COMPARED WITH ECG OF 31-MAR-2018 18:00, NO SIGNIFICANT CHANGE WAS FOUND Confirmed by GINGER RODRIGUEZ, SKIP ([id number]) on 04/06/2018 8:52:40 AM Referred By: Confirmed By:SKIP MILES MD
== END 2018-04-05 19:15 | DRG 344 ==
LOC: JER 15:10 → JERBED 18:08 → J5S 23:37
PROVIDERS: ADMIT Internal Medicine; ATTEND Internal Medicine
PROC: 02HV33Z Insertion of Infusion Device into Superior Vena Cava, Percutaneous Approach (ICD-10-PCS; principal; 2018-04-05)
DX: E11.621 Type 2 diabetes mellitus with foot ulcer (principal); L97.529 Non-pressure chronic ulcer of other part of left foot with unspecified severity; R56.9 Unspecified convulsions; F10.20 Alcohol dependence, uncomplicated; R63.4 Abnormal weight loss; Z68.1 Body mass index [BMI] 19.9 or less, adult; M86.172 Other acute osteomyelitis, left ankle and foot; K70.30 Alcoholic cirrhosis of liver without ascites; R64 Cachexia; E83.42 Hypomagnesemia; D64.9 Anemia, unspecified; F17.210 Nicotine dependence, cigarettes, uncomplicated; K86.1 Other chronic pancreatitis
CPT/HCPCS: 36415; 36569; 71045-TC-FY; 73630-TC-LT; 73718-LT; 77001-TC-FY; 80053; 80307; 82550; 82607; 82962; 83036; 83540; 83605; 83735; 84100; 84484; 85025; 85027; 85610; 85651; 86140; 87040; 87070; 87077; 87186; 87205; 93005; 93010; 97116-GP; 97161-GP; 99284-25; C1751; J0131; J7030

== ENCOUNTER 2018-07-19 20:09 | Inpatient (IN) | payer OTHER ==
--- NOTE | 2018-07-19 20:18 | PDOC ---
Attending Attestation - HPI HPI: 07/19/18 20:46 The patient is a 52 year old male with a history of alcohol abuse, polysubstance abuse, seizures, and DM who presents to the ER for evaluation of difficulty speaking at home prior to arrival. Girlfriend states she immediately activated EMS after noticing the patient having difficulty speaking. Patient states he has had similar symptoms in the past. Upon arrival to the ER patient' s speech returned to baseline. As per girlfriend, patient drank 8 glasses of wine earlier today. Patient does not have a neurologist, and goes to his PCP, Dr. Mac, regularly. The patient denies numbness/tingling/weakness, chest pain, shortness of breath, headache, and dizziness. Denies fever, chills, nausea, vomit, diarrhea, and constipation. Denies dysuria, frequency, urgency, and hematuria. Allergies: NKA Past surgical history: None reported. Social history: No reported alcohol, drug, or cigarette use, PCP: Dr. Mac - Physicial Exam PE: 07/19/18 20:46 ADULT EXAM GENERAL: Awake, alert, and fully oriented, in no acute distress. Thin HEAD: No signs of trauma EYES: PERRLA, EOMI, sclera anicteric, conjunctiva clear ENT: Auricles normal inspection, hearing grossly normal, nares patent, oropharynx clear without exudates. Moist mucosa NECK: Normal ROM, supple, no lymphadenopathy, JVD, or masses LUNGS: Breath sounds equal, clear to auscultation bilaterally. No wheezes, and no crackles HEART: Regular rate and rhythm, normal S1 and S2, no murmurs, rubs or gallops ABDOMEN: Soft, nontender, normoactive bowel sounds. No guarding, no rebound. No masses EXTREMITIES: Normal range of motion, no edema. No clubbing or cyanosis. No cords, erythema, or tenderness NEUROLOGICAL: Cranial nerves II through XII grossly intact. Normal speech, normal gait SKIN: Warm, Dry, normal turgor, no rashes or lesions noted. <Milly Ramos - Last Filed: 07/19/18 20:47> - Resident Resident Name: Frances Gann - ED Attending Attestation I have performed the following: I have examined & evaluated the patient, The case was reviewed & discussed with the resident, I agree w/resident's findings & plan - Medical Decision Making 07/19/18 22:[address] is normal; no acute changes. Labs normal. Alcohol level 140s Vitals stable. PMD Dr. Mac's group aware of the admission. <Danii Arias - Last Filed: 07/19/18 22:30>
--- NOTE | 2018-07-19 20:35 | PDOC ---
History of Present Illness - General Stated Complaint: UNABLE TO TALK Time Seen by Provider: 07/19/18 20:16 History Source: Patient, Significant Other Exam Limitations: No Limitations - History of Present Illness Initial Comments: 07/19/18 20:27 Patient is 52M with history of heavy EtOH use, prescription sleeping medication heavy use, polysubstance abuse, seizure disorder (on Keppra with no dosage changes recently), insulin-dependent DM, and DM foot ulcer who p/w acute onset intermittent inability to speak (difficulty finding and expressing words). The patient is intermittently able to give history and symptomology, as his dysphasia is transient and resolves every 5 minutes but then recurs after another 5 minutes. He notes having consumed 2 alcoholic drinks this afternoon, then having the onset of symptoms at an unknown time this afternoon. He denies any pain, or any recent falls or trauma. The girlfriend notes that the last time she saw him acting and talking normally was yesterday at noon. She did not see him after this until this evening at 7:25pm when she got there after work, and found him with this difficulty speaking, and immediately called 911. (She also notes that he drank about 8 alcoholic drinks this afternoon.) EMS notes that his [facility]SBG was 281 en route, and he was conversing with them normally. His PCP is Cassidy Mac. Past History - Past Medical History Allergies/Adverse Reactions: Allergies Allergy/AdvReac Type Severity Reaction Status Date / Time No Known Allergies Allergy Verified 07/19/18 20:35 Home Medications: Ambulatory Orders Acetaminophen W/ Codeine #3 [Tylenol # 3 -] 2 tab PO Q4H PRN tablet MDD 12 Ceftriaxone [Rocephin -] 2 gm IVPB DAILY vial 04/05/18 Chlordiazepoxide [Librium -] 15 mg PO [id number] capsule MDD 60mg 04/05/18 Collagenase Clostridium Hist. [Santyl -] 1 applic TP DAILY tube 04/05/18 Insulin Sliding Scale [Novolog Vial Sliding Scale -] 1 vial SQ ACHS units 04/05 Megestrol Acetate Oral Susp [Megace Oral Suspension -] 400 mg PO DAILY cup Nicotine Patch [Nicoderm Patch -] 21 mg TD DAILY patch 04/05/18 Picc Line Flush [Picc Line Flush -] 8 ml IVPUSH PRN PRN ml 04/05/18 Vitamins (Sjr) - 1 tab PO DAILY tablet 04/05/18 Thiamine HCl [Vitamin B1 -] 100 mg PO HS tablet 04/05/18 levETIRAcetam [Keppra -] 500 mg PO BID tablet 04/05/18 Anemia: No Asthma: No Cancer: No Cardiac Disorders: No CVA: No COPD: No CHF: No Dementia: No Diabetes: Yes GI Disorders: No Disorders: No HTN: No Hypercholesterolemia: No Liver Disease: No Seizures: Yes Thyroid Disease: No - Surgical History Abdominal Surgery: No Cardiac Surgery: No Lung Surgery: No Neurologic Surgery: No - Immunization History Immunization Up to Date: Yes - Suicide/Smoking/Psychosocial Hx Smoking Status: Yes Smoking History: Unknown if ever smoked Have you smoked in the past 12 months: Yes Number of Cigarettes Smoked Daily: 20 'Breaking Loose' booklet given: 05/03/14 Hx Alcohol Use: No Drug/Substance Use Hx: No Substance Use Type: Alcohol Hx Substance Use Treatment: No Review of Systems - Review of Systems Able to Perform ROS?: Yes Constitutional: No: Chills, Fever, Unexplained wgt Loss HEENTM: No: Nose Congestion, Throat Pain Respiratory: No: Cough, Shortness of Breath Cardiac (ROS): No: Chest Pain, Palpitations ABD/GI: No: Constipated, Diarrhea, Nausea, Vomiting : No: Burning, Dysuria Musculoskeletal: No: Back Pain, Neck Pain Integumentary: No: Bruising, Rash Neurological: Yes: Other (difficulty speaking). No: Headache, Numbness, Seizure , Tingling, Weakness, Dizziness Psychiatric: Yes: Other (substance use) Endocrine: No: Unexplained Weight Gain, Unexplained Weight Loss *Physical Exam - Physical Exam General Appearance: Yes: Nourished, Appropriately Dressed, Other (intermittent expressive aphasia and word salad, alternating about every 5 minutes with normal speech pattern, during normal speech pattern patient is a/ox4 without speech slurring, answering questions appropriately). No: Apparent Distress HEENT: positive: EOMI, PRAVIN, Normal ENT Inspection, Normal Voice, Hearing Grossly Normal. negative: Scleral Icterus (R), Scleral Icterus (L), Nasal Congestion Neck: positive: Trachea midline, Supple. negative: Tender, Rigid, Carotid bruit Respiratory/Chest: positive: Lungs Clear, Normal Breath Sounds. negative: Respiratory Distress, Crackles, Rhonchi, Stridor, Wheezing Cardiovascular: positive: Regular Rhythm, Regular Rate, S1, S2. negative: Edema , JVD, Murmur Gastrointestinal/Abdominal: positive: Normal Bowel Sounds, Flat, Soft. negative : Tender, Organomegaly, Pulsatile Mass, Guarding Musculoskeletal: positive: Normal Inspection. negative: Decreased Range of Motion, Vertebral Tenderness Extremity: positive: Normal Capillary Refill, Normal Inspection, Normal Range of Motion. negative: Tender, Cyanosis Integumentary: positive: Normal Color, Dry, Warm. negative: Erythema, Rash, Bruising Neurologic: positive: social professionals II-XII NML intact, Fully Oriented, Alert, Normal Mood/ Affect, Normal Response, Motor Strength 5/5, Responsive, Finger to Nose (normal) , Other (no truncal ataxia, no asterixis). negative: EOM Palsy, Facial Droop, Numbness, Sensory Deficit, Confused, Disoriented Heart Score/ECG Review #1 Sinus rhythm, rate of 88, normal axis and intervals, TW flattening in aVL, no ischemic ST-T changes ED Treatment Course - LABORATORY CBC & Chemistry Diagram: 07/19/18 20:37 07/19/18 20:37 Medical Decision Making - Medical Decision Making Adult Pt with h/o alcohol and substance use disorder who p/w dysphasia. No additional neurologic deficit however patient is dysphasic on arrival. NIHSS varying between 0 and 1, alternating every ~5 minutes. The time of onset is unknown but last knwn well was yesterday at noon. First known abnormal by girlfriend was today at 7:25 pm. They are outside the tPA window. Dr. Arias initiates code jarrett protocol as patient states onset was some point this afternoon. Initial Vital Signs Temp Pulse Resp BP Pulse Ox 97.8 F 90 18 136/81 98 07/19/18 20:15 07/19/18 20:15 07/19/18 20:15 07/19/18 20:15 07/19/18 20:15 FSBG is 271 on arrival. Exam: As noted in Physical Exam section. DDX IBNLT: CVA/TIA, Wernicke encephalopathy, EtOH intoxication or withdrawal, delerium tremens, seizure (myoclonic, tonic-clonic/grand mal, atonic, absence/ petit mal), infectious/sepsis, etc. W/U ordered: CBCD CMP PT/INR EtOH levels EKG Head CT CXR TX ordered: Kelton Bag 07/19/18 20:[address]: Nothing acute NIH is 1 and patient is not a tPA candidate (outside window). Laboratory Tests 07/19/18 07/19/18 07/19/18 20:21 20:37 20:37 WBC 10.1 H RBC 3.75 L Hgb 12.4 Hct 36.2 D MCV 96.6 H MCH 33.0 MCHC 34.1 RDW 16.2 H Plt Count 231 MPV 8.4 Absolute Neuts (auto) 5.3 Neutrophils % 52.9 D Lymphocytes % 39.6 Monocytes % 6.6 Eosinophils % 0.7 Basophils % 0.2 Nucleated RBC % 0 PT with INR INR PTT (Actin FS) Saline-Adjusted PTT Cancelled PTT Patient/Cntrl Mix Cancelled PTT Normal Plasma Pre Cancelled Sodium Potassium Chloride Carbon Dioxide Anion Gap BUN Creatinine Creat Clearance w eGFR POC Glucometer [phone] Random Glucose Calcium Total Bilirubin AST ALT Alkaline Phosphatase Total Protein Albumin Alcohol, Quantitative 07/19/18 07/19/18 07/19/18 20:37 20:37 20:37 WBC RBC Hgb Hct MCV MCH MCHC RDW Plt Count MPV Absolute Neuts (auto) Neutrophils % Lymphocytes % Monocytes % Eosinophils % Basophils % Nucleated RBC % PT with INR 15.80 H INR 1.40 H PTT (Actin FS) Saline-Adjusted PTT PTT Patient/Cntrl Mix PTT Normal Plasma Pre Sodium 133 L Potassium 3.9 Chloride 100 Carbon Dioxide 21 Anion Gap 12 BUN 23 H Creatinine 0.8 Creat Clearance w eGFR > 60 POC Glucometer Random Glucose 257 H Calcium 8.6 Total Bilirubin 0.5 AST 77 H D ALT 45 D Alkaline Phosphatase 87 Total Protein 8.1 Albumin 3.6 Alcohol, Quantitative 143.43 H* 07/19/18 20:44 WBC RBC Hgb Hct MCV MCH MCHC RDW Plt Count MPV Absolute Neuts (auto) Neutrophils % Lymphocytes % Monocytes % Eosinophils % Basophils % Nucleated RBC % PT with INR INR PTT (Actin FS) 34.4 Saline-Adjusted PTT PTT Patient/Cntrl Mix PTT Normal Plasma Pre Sodium Potassium Chloride Carbon Dioxide Anion Gap BUN Creatinine Creat Clearance w eGFR POC Glucometer Random Glucose Calcium Total Bilirubin AST ALT Alkaline Phosphatase Total Protein Albumin Alcohol, Quantitative Reassessment: normal neurological exam, normal gait, CN II-XII intact, normal [id number], no pronator drift, NIHSS 0. Vital Signs Temperature 97.8 F 07/19/18 20:15 Pulse Rate 90 07/19/18 20:15 Respiratory Rate 18 07/19/18 20:15 Blood Pressure 136/81 07/19/18 20:15 O2 Sat by Pulse Oximetry (%) 99 07/19/18 20:52 The Pt is unsafe for discharge at this time. They require further hospital observation, workup, and treatment. Spoke with Dr. Mabry, in agreement Pt to be admitted, inpatient stroke unit. Decision to Admit order placed to Dr. Cassidy Mac at the request of Dr. Mabry. 07/19/18 21:[address] Reed. Consult order placed to Dr. Reed head insulation board saw operator for Neurology. 07/19/18 21:52 Patient seen ambulating around the department unassisted, no distress, speaking normally. Requests something to eat and given a sandwich bag. 07/19/18 22:[address] Reed, greatly appreciate his recs on this patient, late at night. Per his recs, additional orders placed for TSH, B12 level, Mg level, 250 mg thiamine IV push. Patient was started on banana bag drip shortly after arrival. EKG: Reviewed; results as noted in ECG Review section. *DC/Admit/Observation/Transfer Diagnosis at time of Disposition: Expressive dysphasia, Alcohol abuse, Hyperglycemia - Discharge Dispostion Condition at time of disposition: Guarded Decision to Admit order: Yes - Referrals - Patient Instructions - Post Discharge Activity NIH Stroke Scale - Last Known Well Date/Time & Onset Date Last Known Well: 07/18/18 Time Last Known Well: 12:00 - Initial Evaluation Level of consciousness: Alert Ask patient the month and their age: Answers both correctly Ask patient to open & close eyes; make fist and let go: Obeys both correctly Best gaze (horizontal eye movement): Normal Visual field testing: No visual field loss Facial paresis (Show teeth/raise eyebrows/close eyes tight): Normal symmetrical movement Motor Function: Left Arm: Normal Motor Function: Right Arm: Normal (extends arm 90 (or 45) degrees for 10 seconds without drift Motor Function: Left Leg: Normal (extends leg 30 degrees for 5 seconds without drift) Motor Function: Right Leg: Normal (extends leg 30 degrees for 5 seconds without drift) Limb Ataxia: No ataxia Sensory(Use pinprick test arms,legs,trunk,face/side to side): Normal Best language (Describe picture, name items, read sentences): Mild to moderate aphasia (intermittently) Dysarthria (read several words): Normal articulation Extinction and Inattention: No abnormality - Total Score NIH Stroke Scale Score: 1 tPA Exclusion checklist 3-4.5h - Time Elapsed Date last known well: 07/18/18 Time last known well: 12:00 Elaspsed time: 1 Day(s) and 11 Hour(s) and 6 Minutes - Thrombolytic Therapy Candidate Is patient eligible for thrombolytic therapy: No - Exclusion Criteria 3-4.5 hr SBP greater than 185 or DBP greater than 110mmHg despite tx: No Recent IC/spinal surgery,head trauma or stroke<3mos.: No Hx IC hemorrhage, IC neoplasm, AV malformation or aneurysm: No Active internal bleeding: No Blding diathesis(low plt ct, inc PTT,INR>1.7 or use of NOAC): No Symptoms suggest subarachnoid hemorrhage: No CT demonstrates multilobar infarct(>1/3 cerebral hemiphere): No Arterial puncture at noncompressible site in previous 7 days: No Blood glucose concentration less than 50mg/dL (2.7mmol/L): No - Relative Exclusion Criteria 3-4.5 hr Life expectancy <1 yr or severe co-morbid illness: No : No Patient/family refused: No Rapid improvement: Yes Stroke severity too mild: Yes Recent acute [place] (w/in previous 3 months): No Seizure at onset with postictal residual neuro impairments: No Major surgery or serious trauma w/in previous 14 days: No Recent GI or hemorrhage (w/in previous 21 days): No - Add'l Relative Exclusion 3-4.5 hr Age > 80: No Hx of both diabetes AND prior ischemic stroke: No Taking an oral anticoagulant regardless of INR: No NIHSS >25: No - Ineligibility reason(s) Reasons No tPA given: Outside of window - delayed arrival
[2018-07-19] MEDS ORDERED: FOLIC ACID INJECTION - 1 MG, THIAMINE HCL 100 MG, MULTIVIT INJECTION ADULT 10 ML in SOD... IVPB ONE (20:37)
[2018-07-19 20:45] LABS: BASO % 0.2 % (0-2.0); EOS % 0.7 % (0-4.5); HEMATOCRIT 36.2 % (35.4-49); HEMOGLOBIN 12.4 GM/dL (11.7-16.9); LYMPH % 39.6 % (8-40); MCHC 34.1 g/dl (32.0-35.9); MEAN CELL VOLUME 96.6 fl (80-96); MEAN PLT VOLUME 8.4 fl (7.5-11.1); MONO % 6.6 % (3.8-10.2); NEUT % 52.9 % (42.8-82.8); PLATELET COUNT 231 K/MM3 (134-434); RBC 3.75 M/mm3 (4.00-5.60); RDW 16.2 % (11.9-15.9); WHITE BLOOD COUNT 10.1 K/mm3 (4.0-10.0)
[2018-07-19 21:08] LABS: ALBUMIN 3.6 g/dl (3.4-5.0); ALK PHOS 87 U/L (45-117); ANION GAP 12 MMOL/L (8-16); BILIRUBIN,TOTAL 0.5 mg/dL (0.2-1.0); BLOOD UREA NITROGEN 23 mg/dL (7-18); CALCIUM 8.6 mg/dL (8.5-10.1); CHLORIDE 100 mmol/L (98-107); CO2 21 mmol/L (21-32); CREATININE 0.8 mg/dL (0.7-1.3); GLUCOSE,RANDOM 257 mg/dL (74-106); POTASSIUM 3.9 mmol/L (3.5-5.1); SGOT/AST 77 U/L (15-37); SGPT/ALT 45 U/L (12-78); SODIUM 133 mmol/L (136-145); TOT PROT 8.1 g/dl (6.4-8.2)
[2018-07-19 21:17] LABS: INR 1.4 (0.83-1.09); PROTHROMBIN TIME (PATIENT) 15.8 SEC (9.7-13.0)
[2018-07-19] MEDS ORDERED: THIAMINE HCL 200 MG/2 ML VIAL IVPB ONE (22:19)
[2018-07-20] MEDS ORDERED: chlordiazePOXIDE HCL 25 MG CAPSULE PO PRN ×2 (00:13→12:27)
[2018-07-20] MEDS ORDERED: ASPIRIN COATED 81 MG TABLET.EC PO ONE (00:15)
[2018-07-20] MEDS: levETIRAcetam 500 MG TABLET (FP) PO SCH ×3 (00:31→21:08)
[2018-07-20 02:07] VITALS: BMI 19.2
[2018-07-20] MEDS: INSULIN SLIDING SCALE (NOVOLOG) 1 VIAL SQ SCH ×4 (06:31→21:08)
[2018-07-20 07:06] LABS: HEMATOCRIT 32.5 % (35.4-49); HEMOGLOBIN 11.1 GM/dL (11.7-16.9); MCH 32.6 pg (25.7-33.7); MCHC 34.1 g/dl (32.0-35.9); MEAN CELL VOLUME 95.6 fl (80-96); MEAN PLT VOLUME 8.3 fl (7.5-11.1); PLATELET COUNT 162 K/MM3 (134-434); RDW 16.2 % (11.9-15.9); WHITE BLOOD COUNT 8.3 K/mm3 (4.0-10.0)
[2018-07-20 07:33] LABS: ANION GAP 11 MMOL/L (8-16); BLOOD UREA NITROGEN 21 mg/dL (7-18); CALCIUM 8.1 mg/dL (8.5-10.1); CHLORIDE 101 mmol/L (98-107); CO2 21 mmol/L (21-32); GLUCOSE,RANDOM 202 mg/dL (74-106); MAGNESIUM 1.4 mg/dL (1.8-2.4); POTASSIUM 4.1 mmol/L (3.5-5.1); SODIUM 133 mmol/L (136-145)
[2018-07-20 08:04] LABS: ALK PHOS 72 U/L (45-117); BILIRUBIN,TOTAL 0.9 mg/dL (0.2-1.0); CHOLESTEROL 81 mg/dL (50-200); CREATININE 0.7 mg/dL (0.7-1.3); HDL CHOLESTEROL 15 mg/dL (40-60); SGOT/AST 72 U/L (15-37); SGPT/ALT 40 U/L (12-78); TOT PROT 6.6 g/dl (6.4-8.2); TRIGLYCERIDES 339 mg/dL (35-160)
[2018-07-20] MEDS: MULTIVITAMINS (DAILY MVI) TABLET (FP) PO SCH (09:20)
--- NOTE | 2018-07-20 10:57 | HP ---
Admitting History and Physical - Primary Care Physician PCP: Cassidy Mac - Admission Chief Complaint: Transient aletered sensorium History of Present Illness: 52 yrs old man non complint known since previous Hospitalization H/O PSa active ETOH abuse, recently discharge from Rehab after treated for Foot OM, completed abx, T2DM on Insulin, Seizures disorders,Depression, yesterday present to ED for evaluation of itermitent dysphasia that last for 5 minutes , observed by the girlfriend considering change in [place] she called 911 came to Ed for evaluation , symptoms started after consuming alcohol no tonic cloic seizures, incontinence tongue bite, fever, chills, nausea, vomiting or diarrhea denies any head ache, blurring of vision. History Source: Patient - Past Medical History Heme/Onc: Yes: Anemia Psych: Yes: Anxiety, Depression Endocrine: Yes: Diabetes Mellitus - Smoking History Smoking history: Current every day smoker Have you smoked in the past 12 months: Yes Aproximately how many cigarettes per day: 20 - Social History Usual Living Arrangement: Yes: With Significant Other Home Medications - Allergies Allergies/Adverse Reactions: Allergies Allergy/AdvReac Type Severity Reaction Status Date / Time No Known Allergies Allergy Verified 07/19/18 20:35 - Home Medications Home Medications: Ambulatory Orders Insulin Sliding Scale [Novolog Vial Sliding Scale -] 1 vial SQ ACHS units 04/05 levETIRAcetam [Keppra -] 500 mg PO BID tablet 04/05/18 Folic Acid/Multivit,Iron,[place] [One Daily Complete Tablet] 1 each PO DAILY 07/19 Mirtazapine 15 mg PO HS 07/20/18 Ramipril 10 mg PO DAILY 07/20/18 Family Disease History - Family Disease History Family History: Unremarkable Review of Systems - Review of Systems Constitutional: denies: Chills, Diaphoresis, Fever, Lethargy Eyes: denies: Blind Spots, Blurred Vision, Double Vision HENT: denies: Difficult Swallowing, Ear Discharge, Ear Pain, Epistaxis Neck: denies: Decreased ROM, Lumps, Pain on Movement Cardiovascular: denies: Chest Pain, Edema, Palpitations, Shortness of Breath Respiratory: denies: Cough, Exercise Intolerance, Hemoptysis Gastrointestinal: denies: Abdominal Pain, Bloating, Constipation, Diarrhea Genitourinary: denies: Burning, Discharge Musculoskeletal: denies: Back Pain, Crepitus, Decreased ROM Integumentary: denies: Blister, Bruising Neurological: reports: Change in LOC, Change in Speech, Confusion Endocrine: denies: Excessive Sweating, Flushing, Increased Hunger Hematology/Lymphatic: denies: Easily Bruised, Excessive Bleeding, Swollen Glands Psychiatric: reports: Altered Sleep Pattern, Anxiety, Depression Physical Examination Vital Signs: Vital Signs Temperature 97.8 F 07/20/18 06:00 Pulse Rate 81 07/20/18 06:00 Respiratory Rate 18 07/20/18 06:00 Blood Pressure 118/65 07/20/18 06:00 O2 Sat by Pulse Oximetry (%) 100 07/20/18 10:00 Middle aged man not in distress HEENT: Mm moist, mild anemia, PERRLA, EOMI NECK: No JVd no Bruit CHEST: CTA B/L CVS; S1S2 R no m/g/r ABD: No distention, non tender Bs + EXT: No edema feet, no calf tenderness CS: AOX3 non focal Normal Speech Cranial N 2-12 are normal MOTOR: No Defecit Sensory: Diabetic Neuropathy Reflexes; sluggish but non- localising Planters: B/L Flexors Gait: Not tested Labs: CBC, BMP 07/20/18 06:20 07/20/18 06:20 Imaging - Results Cat Scan: Report Reviewed (No Interval changes) EKG: Report Reviewed Problem List - Problems (1) Expressive dysphasia Assessment/Plan: Considering H/O seizures and 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 Code(s): R47.02 - DYSPHASIA (2) ETOH abuse Assessment/Plan: admitted with ETOH itoxication, close observation for withdrawal, cont Librium protocol , thiamine folic acid, Lorazepam for seizures and agitation. Code(s): F10.10 - ALCOHOL ABUSE, UNCOMPLICATED (3) T2DM (type 2 diabetes mellitus) Assessment/Plan: Diabetic diet optimize Glycemic control F/U Hba!c level Code(s): E11.9 - TYPE 2 DIABETES MELLITUS WITHOUT COMPLICATIONS (4) Seizure Assessment/Plan: Cot Keppra, seizures precautions F/U Neurology recommendations Code(s): R56.9 - UNSPECIFIED CONVULSIONS Qualifiers: Convulsion type: unspecified Qualified Code(s): R56.9 - Unspecified convulsions (5) Nicotine dependence Assessment/Plan: Counselling for smoking cessation cot Nicotine patch Code(s): F17.200 - NICOTINE DEPENDENCE, UNSPECIFIED, UNCOMPLICATED (6) Macrocytic anemia Assessment/Plan: Due to ETOH abuse Code(s): D53.9 - NUTRITIONAL ANEMIA, UNSPECIFIED (7) Depression Assessment/Plan: no sucidal or homicidal ideation cont home meds Code(s): F32.9 - MAJOR DEPRESSIVE DISORDER, SINGLE EPISODE, UNSPECIFIED
[2018-07-20] MEDS: RAMIPRIL 5 MG CAPSULE (FP) PO SCH (11:27)
[2018-07-20] MEDS: chlordiazePOXIDE HCL 25 MG CAPSULE PO SCH ×3 (12:47→22:41)
--- NOTE | 2018-07-20 18:59 | CONSULT ---
Consult - text type - Consultation Consultation Note: NEUROLOGY CONSULTATION is greatly appreciated: Events reviewed and discussed with Dr. Borjas. This 52 yo RH man lives with his girlfriend. PMH sig for DM (>10 yrs), alcoholism and polysubstance abuse. Few years of numbness and burning pains in his feet associated wit unsteadiness when he closes his eyes in the shower. Over the last few years has had multiple stereotyped episodes of speech arrest with possible obscuration/loss of consciousness. Given Levetiracetam 500 mg BID. Admitted after a typical episode. Admission ETOH level = 143 mg% (noted to have had 8 glasses of wine). CT of head (reviewed): Moderate, diffuse atrophy. Mg++= 1.4 mg % Multiple "seizures" today associated with anxiety have resolved after Librium Rx L[place]ON: Thin . No head trauma. No bruits. Cor reg NEURO: A moderate OMS may be present with decreased recall. Speech fluent CN II-XII: normal without Nystagmus Motor: No drift or tremor. Normal reflexes. Absent AJ's. Toes downgoing. Coord: No FTN dystaxia Sensory: Reduced vibration feet. Romberg + Gait: Sl wide-based. IMP: Non-focal exam Diabetic Peripheral Neuropathy Seizures +/- panic attacks. SUGGEST: Continue Librium, thiamine as per detox protocol. Supplement Mg++ As long as Pt is here give parenteral thiamine 250 mg IVPB q 8 hrs. Continue keppra 500 mg PO q 12 hrs. Thank you very much, Omari Reed MD '
[2018-07-20] MEDS ORDERED: INSULIN (NOVOLOG) ASPART 100 UNITS/ML 10ML VIAL ONE (20:29)
[2018-07-20] MEDS: MAGNESIUM OXIDE 400 MG TABLET (FP) PO SCH (21:07)
[2018-07-20] MEDS: MIRTAZAPINE 15 MG TABLET (FP) PO SCH (21:07)
[2018-07-21] MEDS: THIAMINE HCL 200 MG/2 ML VIAL IVPB SCH ×3 (01:03→18:03)
[2018-07-21] MEDS: chlordiazePOXIDE HCL 25 MG CAPSULE PO SCH ×4 (05:29→22:06)
[2018-07-21] MEDS: INSULIN SLIDING SCALE (NOVOLOG) 1 VIAL SQ SCH ×4 (06:25→22:02)
[2018-07-21 07:03] LABS: BASO % 0.7 % (0-2.0); EOS % 1.8 % (0-4.5); HEMATOCRIT 33.4 % (35.4-49); HEMOGLOBIN 11.1 GM/dL (11.7-16.9); LYMPH % 55.4 % (8-40); MCH 32.5 pg (25.7-33.7); MCHC 33.3 g/dl (32.0-35.9); MEAN CELL VOLUME 97.6 fl (80-96); MEAN PLT VOLUME 8.9 fl (7.5-11.1); MONO % 7.3 % (3.8-10.2); NEUT % 34.8 % (42.8-82.8); PLATELET COUNT 162 K/MM3 (134-434); RBC 3.42 M/mm3 (4.00-5.60); RDW 16.1 % (11.9-15.9); WHITE BLOOD COUNT 7.3 K/mm3 (4.0-10.0)
[2018-07-21 07:36] LABS: ALBUMIN 3.1 g/dl (3.4-5.0); ANION GAP 4 MMOL/L (8-16); BLOOD UREA NITROGEN 11 mg/dL (7-18); CALCIUM 8.5 mg/dL (8.5-10.1); CHLORIDE 105 mmol/L (98-107); CO2 27 mmol/L (21-32); GLUCOSE,RANDOM 225 mg/dL (74-106); POTASSIUM 4.3 mmol/L (3.5-5.1); SODIUM 136 mmol/L (136-145)
[2018-07-21 07:41] LABS: ALK PHOS 78 U/L (45-117); BILIRUBIN,TOTAL 1.9 mg/dL (0.2-1.0); CREATININE 0.9 mg/dL (0.7-1.3); SGOT/AST 67 U/L (15-37); SGPT/ALT 37 U/L (12-78); TOT PROT 6.9 g/dl (6.4-8.2)
[2018-07-21] MEDS: levETIRAcetam 500 MG TABLET (FP) PO SCH ×2 (09:52→21:02)
[2018-07-21] MEDS: RAMIPRIL 5 MG CAPSULE (FP) PO SCH (09:52)
[2018-07-21] MEDS: MULTIVITAMINS (DAILY MVI) TABLET (FP) PO SCH (09:53)
[2018-07-21] MEDS: MAGNESIUM OXIDE 400 MG TABLET (FP) PO SCH ×2 (09:53→21:02)
--- NOTE | 2018-07-21 14:54 | PN ---
Progress Note, Physician Chief Complaint: No new complaints - Current Medication List Current Medications: Active Medications Chlordiazepoxide HCl (Librium -) 25 mg PO Q12H PRN PRN Reason: WITHDRAWAL Last Admin: 07/20/18 00:31 Dose: 25 mg Chlordiazepoxide HCl (Librium -) 25 mg PO [id number] AMADA Stop: 07/22/18 05:01 Last Admin: 07/21/18 11:51 Dose: 25 mg Chlordiazepoxide HCl (Librium -) 15 mg PO [id number] AMADA Stop: 07/23/18 05:01 Chlordiazepoxide HCl (Librium -) 25 mg PO Q4H PRN PRN Reason: WITHDRAWAL(CONT SUBST) Stop: 07/23/18 12:26 Chlordiazepoxide HCl (Librium -) 10 mg PO [id number] [facility] Stop: 07/24/18 05:01 Insulin Aspart (Novolog Vial Sliding Scale -) 1 vial SQ [facility]; Protocol Last Admin: 07/21/18 11:49 Dose: 10 units Levetiracetam (Keppra -) 500 mg PO BID [facility] Last Admin: 07/21/18 09:52 Dose: 500 mg Magnesium Oxide (Mag-Ox -) 400 mg PO BID [facility] Stop: 07/22/18 10:01 Last Admin: 07/21/18 09:53 Dose: 400 mg Mirtazapine (Remeron -) 15 mg PO HS [facility] Last Admin: 07/20/18 21:07 Dose: 15 mg Multivitamins/Minerals/Vitamin C (Tab-A-Vit -) 1 tab PO DAILY [facility] Last Admin: 07/21/18 09:53 Dose: 1 tab Ramipril (Altace -) 10 mg PO DAILY [facility] Last Admin: 07/21/18 09:52 Dose: 10 mg Thiamine HCl (Vitamin B1 Injection -) 250 mg IVPB Q8H-IV AMADA Stop: 07/22/18 18:01 Last Admin: 07/21/18 09:53 Dose: 250 mg - Objective Vital Signs: Vital Signs Temperature 98.4 F 07/21/18 10:00 Pulse Rate 89 07/21/18 10:00 Respiratory Rate 20 07/21/18 10:00 Blood Pressure 137/77 07/21/18 10:00 O2 Sat by Pulse Oximetry (%) 96 07/21/18 09:00 Middle aged man not in distress HEENT: Mm moist, mild anemia, PERRLA, EOMI NECK: No JVd no Bruit CHEST: CTA B/L CVS; S1S2 R no m/g/r ABD: No distention, non tender Bs + EXT: No edema feet, no calf tenderness CS: AOX3 non focal Normal Speech Cranial N 2-12 are normal MOTOR: No Defecit Sensory: Diabetic Neuropathy Reflexes; sluggish but non- localising Planters: B/L Flexors Gait: Not tested Labs: CBC, BMP 07/21/18 06:00 07/21/18 06:00 INR, PTT INR 1.40 (0.83-1.09) H 07/19/18 20:37 Problem List - Problems (1) Expressive dysphasia Assessment/Plan: Considering H/O seizures 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 Code(s): R47.02 - DYSPHASIA (2) ETOH abuse Assessment/Plan: admitted with ETOH itoxication, close observation for withdrawal, cont Librium protocol , thiamine folic acid, Lorazepam for seizures and agitation. Code(s): F10.10 - ALCOHOL ABUSE, UNCOMPLICATED (3) T2DM (type 2 diabetes mellitus) Assessment/Plan: Diabetic diet optimize Glycemic control F/U Hba!c level Code(s): E11.9 - TYPE 2 DIABETES MELLITUS WITHOUT COMPLICATIONS (4) Seizure Assessment/Plan: Cot Keppra, seizures precautions F/U Neurology recommendations Code(s): R56.9 - UNSPECIFIED CONVULSIONS Qualifiers: Convulsion type: unspecified Qualified Code(s): R56.9 - Unspecified convulsions (5) Nicotine dependence Assessment/Plan: Counselling for smoking cessation cot Nicotine patch Code(s): F17.200 - NICOTINE DEPENDENCE, UNSPECIFIED, UNCOMPLICATED (6) Macrocytic anemia Assessment/Plan: Due to ETOH abuse Code(s): D53.9 - NUTRITIONAL ANEMIA, UNSPECIFIED (7) Depression Assessment/Plan: no sucidal or homicidal ideation cont home meds Code(s): F32.9 - MAJOR DEPRESSIVE DISORDER, SINGLE EPISODE, UNSPECIFIED
[2018-07-21] MEDS ORDERED: INSULIN (NOVOLOG) ASPART 100 UNITS/ML 10ML VIAL SQ ONE (19:00)
[2018-07-21] MEDS: MIRTAZAPINE 15 MG TABLET (FP) PO SCH (21:02)
[2018-07-21] MEDS: INSULIN (LEVEMIR) 100 UNITS/ML UNITS SQ SCH (22:03)
[2018-07-22] MEDS ORDERED: ZOLPIDEM TARTRATE 5 MG TABLET PO ONE (00:15)
[2018-07-22] MEDS: THIAMINE HCL 200 MG/2 ML VIAL IVPB SCH ×3 (01:03→17:17)
[2018-07-22] MEDS: chlordiazePOXIDE HCL 25 MG CAPSULE PO SCH (05:15)
[2018-07-22] MEDS: INSULIN SLIDING SCALE (NOVOLOG) 1 VIAL SQ SCH ×4 (06:00→21:51)
[2018-07-22] MEDS: levETIRAcetam 500 MG TABLET (FP) PO SCH ×2 (09:30→21:39)
[2018-07-22] MEDS: MULTIVITAMINS (DAILY MVI) TABLET (FP) PO SCH (09:30)
[2018-07-22] MEDS: MAGNESIUM OXIDE 400 MG TABLET (FP) PO SCH (09:30)
[2018-07-22] MEDS: RAMIPRIL 5 MG CAPSULE (FP) PO SCH (09:30)
--- NOTE | 2018-07-22 09:35 | PN ---
Progress Note, Physician Chief Complaint: Feels better History of Present Illness: Admitted with seizure disorder - Current Medication List Current Medications: Active Medications Chlordiazepoxide HCl (Librium -) 25 mg PO Q12H PRN PRN Reason: WITHDRAWAL Last Admin: 07/20/18 00:31 Dose: 25 mg Chlordiazepoxide HCl (Librium -) 15 mg PO [id number] [facility] Stop: 07/23/18 05:01 Chlordiazepoxide HCl (Librium -) 25 mg PO Q4H PRN PRN Reason: WITHDRAWAL(CONT SUBST) Stop: 07/23/18 12:26 Chlordiazepoxide HCl (Librium -) 10 mg PO [id number] [facility] Stop: 07/24/18 05:01 Insulin Aspart (Novolog Vial Sliding Scale -) 1 vial SQ [facility]; Protocol Last Admin: 07/22/18 06:00 Dose: 6 units Insulin Detemir (Levemir Vial) 8 units SQ [facility] Last Admin: 07/21/18 22:03 Dose: 8 units Levetiracetam (Keppra -) 500 mg PO BID [facility] Last Admin: 07/21/18 21:02 Dose: 500 mg Magnesium Oxide (Mag-Ox -) 400 mg PO BID [facility] Stop: 07/22/18 10:01 Last Admin: 07/21/18 21:02 Dose: 400 mg Mirtazapine (Remeron -) 15 mg PO HS [facility] Last Admin: 07/21/18 21:02 Dose: 15 mg Multivitamins/Minerals/Vitamin C (Tab-A-Vit -) 1 tab PO DAILY [facility] Last Admin: 07/21/18 09:53 Dose: 1 tab Ramipril (Altace -) 10 mg PO DAILY [facility] Last Admin: 07/21/18 09:52 Dose: 10 mg Thiamine HCl (Vitamin B1 Injection -) 250 mg IVPB Q8H-IV [facility] Stop: 07/22/18 18:01 Last Admin: 07/22/18 01:03 Dose: 250 mg - Objective Vital Signs: Vital Signs Temperature 98.6 F 07/22/18 06:00 Pulse Rate 88 07/22/18 06:00 Respiratory Rate 20 07/22/18 06:00 Blood Pressure 108/66 07/22/18 06:00 O2 Sat by Pulse Oximetry (%) 100 09/09/18 22:00 Constitutional: Yes: Mild Distress Eyes: Yes: WNL HENT: Yes: WNL Neck: Yes: WNL Cardiovascular: Yes: WNL Respiratory: Yes: WNL Gastrointestinal: Yes: WNL ...Rectal Exam: Yes: WNL Genitourinary: Yes: WNL Breast(s): Yes: WNL Musculoskeletal: Yes: WNL Extremities: Yes: WNL Edema: No Neurological: Yes: Alert Labs: CBC, BMP 07/21/18 06:00 07/21/18 06:00 INR, PTT INR 1.40 (0.83-1.09) H 07/19/18 20:37 Assessment/Plan Will adjust meds EEG
--- NOTE | 2018-07-22 11:12 | EKG ---
Test Reason : Blood Pressure : / mmHG Vent. Rate : 088 BPM Atrial Rate : 088 BPM P-R Int : 146 ms QRS Dur : 080 ms QT Int : 354 ms P-R-T Axes : 066 062 056 degrees QTc Int : 428 ms NORMAL SINUS RHYTHM NORMAL ECG WHEN COMPARED WITH ECG OF 31-MAR-2018 23:14, T WAVE VARIATION Confirmed by PARAS MCKEON MD ([id number]) on 07/22/2018 11:11:50 AM Referred By: Confirmed By:PARAS MCKEON MD
[2018-07-22] MEDS: chlordiazePOXIDE 5 MG CAPSULE PO SCH ×3 (11:24→21:59)
[2018-07-22] MEDS ORDERED: INSULIN (NOVOLOG) ASPART 100 UNITS/ML 10ML VIAL ONE (11:49)
[2018-07-22] MEDS: MIRTAZAPINE 15 MG TABLET (FP) PO SCH (21:39)
[2018-07-22] MEDS: INSULIN (LEVEMIR) 100 UNITS/ML UNITS SQ SCH (21:50)
[2018-07-23] MEDS: INSULIN SLIDING SCALE (NOVOLOG) 1 VIAL SQ SCH ×4 (06:26→21:28)
[2018-07-23] MEDS: chlordiazePOXIDE 5 MG CAPSULE PO SCH ×4 (06:26→22:48)
[2018-07-23 07:57] LABS: CHLORIDE 102 mmol/L (98-107); POTASSIUM 4.7 mmol/L (3.5-5.1); SODIUM 134 mmol/L (136-145)
[2018-07-23 08:34] LABS: ALBUMIN 2.9 g/dl (3.4-5.0); ALK PHOS 66 U/L (45-117); ANION GAP 7 MMOL/L (8-16); BILIRUBIN,TOTAL 0.9 mg/dL (0.2-1.0); BLOOD UREA NITROGEN 14 mg/dL (7-18); CALCIUM 8.6 mg/dL (8.5-10.1); CO2 25 mmol/L (21-32); GLUCOSE,RANDOM 284 mg/dL (74-106); SGOT/AST 43 U/L (15-37); SGPT/ALT 33 U/L (12-78); TOT PROT 6.6 g/dl (6.4-8.2)
[2018-07-23] MEDS: MULTIVITAMINS (DAILY MVI) TABLET (FP) PO SCH (09:01)
[2018-07-23] MEDS: levETIRAcetam 500 MG TABLET (FP) PO SCH ×2 (09:02→21:25)
[2018-07-23] MEDS: RAMIPRIL 5 MG CAPSULE (FP) PO SCH (09:02)
--- NOTE | 2018-07-23 09:05 | PN ---
Progress Note, Physician Chief Complaint: Admitted with multiple seizures EEG done report pending Blood sugar not on control,Levmir increased to * units BID - Current Medication List Current Medications: Active Medications Chlordiazepoxide HCl (Librium -) 25 mg PO Q4H PRN PRN Reason: WITHDRAWAL(CONT SUBST) Stop: 07/23/18 12:26 Chlordiazepoxide HCl (Librium -) 10 mg PO [id number] Stop: 07/24/18 05:01 Insulin Aspart (Novolog Vial Sliding Scale -) 1 vial SQ [facility]; Protocol Last Admin: 07/23/18 06:26 Dose: 6 units Insulin Detemir (Levemir Vial) 8 units SQ [facility] Levetiracetam (Keppra -) 500 mg PO BID [facility] Last Admin: 07/22/18 21:39 Dose: 500 mg Mirtazapine (Remeron -) 15 mg PO HS [facility] Last Admin: 07/22/18 21:39 Dose: 15 mg Multivitamins/Minerals/Vitamin C (Tab-A-Vit -) 1 tab PO DAILY [facility] Last Admin: 07/22/18 09:30 Dose: 1 tab Ramipril (Altace -) 10 mg PO DAILY [facility] Last Admin: 07/22/18 09:30 Dose: 10 mg - Objective Vital Signs: Vital Signs Temperature 98.6 F 07/23/18 06:00 Pulse Rate 89 07/23/18 06:00 Respiratory Rate 18 07/23/18 06:00 Blood Pressure 102/53 07/23/18 06:00 O2 Sat by Pulse Oximetry (%) 98 07/22/18 21:00 Constitutional: Yes: Calm Eyes: Yes: WNL HENT: Yes: WNL Neck: Yes: WNL Cardiovascular: Yes: WNL Respiratory: Yes: WNL Gastrointestinal: Yes: WNL ...Rectal Exam: Yes: Deferred Genitourinary: Yes: WNL Musculoskeletal: Yes: WNL Edema: No Peripheral Pulses WNL: Yes Neurological: Yes: Alert Labs: CBC, BMP 07/21/18 06:00 07/23/18 06:30 INR, PTT INR 1.40 (0.83-1.09) H 07/19/18 20:37 Assessment/Plan Levmir increased to 8 units BID EEG report pending
--- NOTE | 2018-07-23 09:13 | CONSULT ---
Admitting History and Physical - Past Medical History Heme/Onc: Yes: Anemia Psych: Yes: Anxiety, Depression Endocrine: Yes: Diabetes Mellitus - Smoking History Smoking history: Current every day smoker Have you smoked in the past 12 months: Yes Aproximately how many cigarettes per day: 20 - Alcohol/Substance Use Hx Alcohol Use: No History - Admission Reason For Visit: ALCOHOL ABUSE,EXPRESSIVE DYSPHASIA,HYPERGLYCEMIA - Hearing Hearing: Normal Speech Evaluation - Communication Primary Language: ZAMBIAN Communication: Yes: Within Normal Limits, Simple Responses Oral Expression Ability: Yes: No Impairment - Speech Production Apraxia: No Able to Make Needs Known: Yes: WNL Intelligibility: Yes: WNL - Speech Characteristics Voice Loudness: Normal Voice Pitch: Yes: Normal Voice Phonatory-based Quality: Yes: Normal Speech Pattern: Normal Nasal Resonance: Normal Articulation: Yes: Precise Rate of Speech: Intact - Language/Auditory Comprehension Follows: Yes: 1 Stage Simple Commands (WFL), 2 Stage Simple Commands (WFL) Observation: Able to respond to yes/no queries: Yes, Yes/No Confusion: No, Comprehends Conversational Speech: Yes, Benefits from Slow Speech: No, Benefits from Repetiton: No - Language/Verbal Expression Able to Respond to Simple Queries: Yes: WNL Able to Communicate Wants and Needs: Yes: WNL Functional Communication Status: Yes: WNL Aware of Errors: Yes Attempts to Correct Errors: Yes Use of Gestures: No Written Expression: not examined Oral Expression: WFL Reading Comprehension: not examined Calculations: not examined Attention: Yes: Intact - Memory/Perception intermediate card tender Memory: Yes: WNL Short Term Memory: Yes: WNL - Swallow Evaluation/Bedside Assessment Current Nutritional Intake: Regular (Diabetic sodium controlled.), Thin Liquids Oral Secretions: Yes: WFL Tracheostomy Present: No Patient on Ventilator: No Dentition: Yes: Adequate Facial Symmetry at Rest: Symmetrical Facial Symmetry on Retraction: Symmetrical Facial Movement: Controlled Sensation: Normal Facial Comment: WFL for speech and swallowing purposes. Jaw Position: Closed at Rest Against Resistance Opening: Normal Against Resistance Closing: Normal Pucker Lips: Normal Lips, Comment: WFL for speech and swallowing purposes. Lingual Movement: Normal Lingual Speed of Movement: Normal Lingual Movement Strgth Against Opposition: Normal Lingual Movement Characteristics: Normal Lingual Comment: WFL for speech and swallowing purposes. Soft Palate Description: Normal Color Hard Palate Description: Normal Color Gag Reflex: Strong Bite Reflex: Present Velopharyngeal Movement: Normal Laryngeal Elevation: WFL Laryngeal Movement: Able to Palpate Needs Assistance: No Rate of Intake: WFL Bolus Size: WFL Labial Seal: WFL Chewing: WFL Oral Prep Time: WFL A-P Transit: WFL Timing of Swallow: WFL Coughing/Throat Clear: No Change in Voice: No Other Findings/Remarks: 52 yo male seen at bedside for swallow eval to r/o dysphagia. Pt is verbal A& Ox3 somewhat cooperative. Admitted to [facility] for dysphagia secondary to SZD (now resolved). PMHX includes: ETOH abuse, DM type 2, Seizure and depression. Pt demonstrates adequate airway protection and vocal quality. Current diet is regular solids with thin liquids. Pt given po trials of pureed, soft and regular solids without assistance revealed good acceptance, adequate bolus control, formation and transport. Pharyngeal swallows appears timely with no s/s of aspiration after the swallow . Thin liquids trials were unremarkable for dysphagia and / or aspiration at this time. Recommendations - Speech Evaluation, Impression/Plan Impression: 52 yo male is able to tolerate purees, soft, regular solids with thin liquids without s/s of aspiration at this time. Speech is WFL. Group Home Goals: tolerate the least restrictive diet without s/s of aspiration. Short Term Goals: tolerate regular diabetic solids and thin liquids without s/s of dysphagia and aspiration. - Dysphagia Impressions/Plan Swallowing Skills: WFL Dysphagia Impressions: No Impairment (at this time) Dysphagia Treatment Plan: Elevate HOB during feed, Other (monitor nutritional intake) Dysphagia Evaluation Summary: Continue with regular solids (diabetic / NA controlled) with thin liquids as tolerated. Monitor nutritional intake. Meds can be offered whole with liquids. Results given to recharger Marvet and to pcp via chart. ADDING MACHINE SERVICER to follow up as needed. - Recommendations Diet Consistency: Regular (Diabetic sodium controlled.) Medication Administration: Whole with water Liquids: Thin Liquids
--- NOTE | 2018-07-23 09:23 | PN ---
Progress Note, ROCK MASON - Note Progress Note: Pt seen at bedside for follow up to swallow eval 07/22/18 with recommendations for regular solids with thin liquids. ROCK MASON observed pt at breakfast consuming meal independently. No s/s of dysphagia and / or aspiration during the meal. Chart review indicates that pt is consuming meals at 100%. Recommendations: Continue current diet of regular solids with thin liquids as tolerated. No further intervention needed at this time. ROCK MASON to follow up as needed.
[2018-07-23] MEDS: INSULIN (LEVEMIR) 100 UNITS/ML UNITS SQ SCH ×2 (10:38→21:29)
[2018-07-23] MEDS ORDERED: INSULIN (NOVOLOG) ASPART 100 UNITS/ML 10ML VIAL ONE (11:27)
[2018-07-23] MEDS ORDERED: INSULIN (NOVOLOG) ASPART 100 UNITS/ML 10ML VIAL SQ ONE (12:15)
--- NOTE | 2018-07-23 15:00 | CONSULT ---
Consult Detox [facility] Reason for Current Admission/Consult: alcohol use history - History History of Present Illness: Pt states he does not have an alcohol use problem. States he drinks occasionally and not on a daily basis. Says there have been periods when he did not drink alcohol and states has had no withdrawal Sx, seizures or DT's. On the day of admission, pt states he had had about 3 glasses on wine, when he had the aura of a seizure coming on. Had a seizure at home and then states had several more in the ER. Has had seizures in the past- was on Keppra which pt did not completely help to control seizures. States that the librium that he is receiving here as part of the detox protocol is helping with seizures. - Alcohol/Substance Use Hx Alcohol Use: No - Past Medical History Psych: Yes: Anxiety, Depression Endocrine: Yes: Diabetes Mellitus CIWA Score - CIWA Score Nausea/Vomitin-No Nausea/No Vomiting Muscle Tremors: None Anxiety: 0-No Anxiety, at Ease Agitation: 0-Normal Activity Paroxysmal Sweats: No Perspiration Orientation: 0-Oriented Tacttile Disturbances: 0-None Auditory Disturbances: 0-None Visual Disturbances: 0-None Headache: 0-None Present CIWA-Ar Total Score: 0 Assessment Plan - Diagnosis (1) Alcohol abuse Status: Acute (2) Seizure Status: Acute Qualifiers: Convulsion type: unspecified Qualified Code(s): R56.9 - Unspecified convulsions - Plan Plan: Pt states he does not abuse alcohol and does not have an alcohol use disorder. Pt on librium detox protocol and shows no signs of alcohol withdrawal. d/w pt services available at [facility]- detox from alcohol and retirement rehab and medications available as an outpt for alcohol use d/o treatment. Pt states he is afraid of getting seizures coming off of librium (detox protocol to end shortly), thinks he may get seizures- consider neurology consult if there are concerns about a seizure d/o- EEG and head CT were negative. Please call us back if we can be of further assistance: [phone] - Medication Detox Regimen/Protocol: Librium
[2018-07-23] MEDS: MIRTAZAPINE 15 MG TABLET (FP) PO SCH (21:25)
[2018-07-24] MEDS: chlordiazePOXIDE 5 MG CAPSULE PO SCH (04:49)
[2018-07-24] MEDS ORDERED: INSULIN (NOVOLOG) ASPART 100 UNITS/ML 10ML VIAL ONE (05:45)
[2018-07-24] MEDS: INSULIN (LEVEMIR) 100 UNITS/ML UNITS SQ SCH (06:20)
[2018-07-24] MEDS: INSULIN SLIDING SCALE (NOVOLOG) 1 VIAL SQ SCH (06:20)
[2018-07-24 09:14] VITALS: BP 116/83; PULSE 98; TEMP 98.4
--- NOTE | 2018-07-24 09:16 | PN ---
Progress Note, Physician Chief Complaint: Very unhappy, wants go home History of Present Illness: No more seizures,Dr Godinez detox consult appreciated ,safe to go home - Current Medication List Current Medications: Active Medications Insulin Aspart (Novolog Vial Sliding Scale -) 1 vial SQ ACHS [facility]; Protocol Last Admin: 07/24/18 06:20 Dose: 4 units Insulin Detemir (Levemir Vial) 8 units SQ BID@0700,2200 [facility] Last Admin: 07/24/18 06:20 Dose: 8 unit Levetiracetam (Keppra -) 500 mg PO BID [facility] Last Admin: 07/23/18 21:25 Dose: 500 mg Mirtazapine (Remeron -) 15 mg PO HS [facility] Last Admin: 07/23/18 21:25 Dose: 15 mg Multivitamins/Minerals/Vitamin C (Tab-A-Vit -) 1 tab PO DAILY [facility] Last Admin: 07/23/18 09:01 Dose: 1 tab Ramipril (Altace -) 10 mg PO DAILY [facility] Last Admin: 07/23/18 09:02 Dose: 10 mg - Objective Vital Signs: Vital Signs Temperature 97.8 F 07/24/18 05:30 Pulse Rate 88 07/24/18 05:30 Respiratory Rate 20 07/24/18 05:30 Blood Pressure 132/80 07/24/18 05:30 O2 Sat by Pulse Oximetry (%) 95 07/23/18 09:00 Constitutional: Yes: No Distress Eyes: Yes: WNL HENT: Yes: WNL Neck: Yes: WNL Cardiovascular: Yes: WNL Respiratory: Yes: WNL Gastrointestinal: Yes: WNL ...Rectal Exam: Yes: Deferred Genitourinary: Yes: WNL Breast(s): Yes: WNL Musculoskeletal: Yes: WNL Extremities: Yes: WNL Edema: No Peripheral Pulses WNL: Yes Integumentary: Yes: WNL Neurological: Yes: Alert Psychiatric: Yes: Alert Labs: CBC, BMP 07/21/18 06:00 07/23/18 06:30 INR, PTT INR 1.40 (0.83-1.09) H 07/19/18 20:37 Assessment/Plan No seizures and no DTs DC home on librum and keppra
[2018-07-24] MEDS ORDERED: PT OWN MED DRAWER 7, Y5N ONE (09:42)
[2018-07-24] MEDS: MULTIVITAMINS (DAILY MVI) TABLET (FP) PO SCH (09:44)
[2018-07-24] MEDS: RAMIPRIL 5 MG CAPSULE (FP) PO SCH (09:44)
[2018-07-24] MEDS: levETIRAcetam 500 MG TABLET (FP) PO SCH (09:44)
== END 2018-07-24 10:40 | disposition home or self-care (01) | DRG 58 ==
LOC: JER 20:09 → JERBED 21:03 → J4S 22:28
PROVIDERS: ADMIT Internal Medicine; ATTEND Internal Medicine
DX: R47.02 Dysphasia (principal); R56.9 Unspecified convulsions; F10.10 Alcohol abuse, uncomplicated; E11.9 Type 2 diabetes mellitus without complications; F17.210 Nicotine dependence, cigarettes, uncomplicated; D53.9 Nutritional anemia, unspecified; F32.9 Major depressive disorder, single episode, unspecified; E11.42 Type 2 diabetes mellitus with diabetic polyneuropathy
CPT/HCPCS: 36415; 70450-TC; 71045-TC-FY; 80053; 80061; 80307; 82607; 82962; 83036; 83721; 83735; 84439; 84443; 84480; 84484; 85025; 85027; 85610; 85730; 93005; 93010; 95816; 99283-25; J7030

== ENCOUNTER 2018-09-27 19:01 | Emergency (ER) | payer OTHER ==
[2018-09-27 19:30] VITALS: BMI 25.8
--- NOTE | 2018-09-27 19:34 | PDOC ---
Attending Attestation - HPI HPI: 09/27/18 20:57 The patient is a 52-year-old male with past medical history significant for seizure disorder (on Keppra x2 daily), IDDM and chronic left foot wound presents to the emergency department via EMS s/p a witnessed seizure episode. The patient presents with girlfriends, who witnessed the episode, the patient became nonverbal, and he was aware that he was having an episode, immediately took a Keppra. The patient reports at the ED, he had 2 episodes. The patient reports hes been having seizures for about a year and half now. Denies tongue biting, urinary or bowel incontinence, fever, chills, chest pain, shortness of breath. Allergies: NKA PCP: In between PCPs - Physicial Exam PE: 09/27/18 21:05 GENERAL: Awake, alert, and fully oriented, in no acute distress HEAD: No signs of trauma EYES: PERRLA, EOMI, sclera anicteric, conjunctiva clear ENT: Auricles normal inspection, hearing grossly normal, nares patent, oropharynx clear without exudates. Moist mucosa NECK: Normal ROM, supple, no lymphadenopathy, JVD, or masses LUNGS: Breath sounds equal, clear to auscultation bilaterally. No wheezes, and no crackles HEART: Regular rate and rhythm, normal S1 and S2, no murmurs, rubs or gallops ABDOMEN: Soft, nontender. No guarding, no rebound. No masses EXTREMITIES: + center of the sole of the sole of the foot a healing ulcer with surrounding erythema or cellulitis. BACK: No midline spinal tenderness in cervical/thoracic/lumbar region NEUROLOGICAL: + Slightly slurred speech, likely due to ETOH, doesn't smell like alcohol, smells like tobacco. Neurologically intact. SKIN: Warm, Dry, normal turgor, no rashes or lesions noted. - Medical Decision Making 09/27/18 20:57 Documentation prepared by Ammy Mary, acting as senior medical technologist for Danii Arias MD. <Ammy Mary - Last Filed: 09/27/18 20:57> - Resident Resident Name: Neetu Dawson - ED Attending Attestation I have performed the following: I have examined & evaluated the patient, The case was reviewed & discussed with the resident, I agree w/resident's findings & plan - Medical Decision Making 09/27/18 21:50 Pt is willing to go to detox at [facility]; detox [facility]URR BENCH OPERATOR Mary is aware and accepts the patient. Security will be taking the patient down to [address]. Pt will be given 100mg librium orally here. <Danii Arias - Last Filed: 09/28/18 00:08> Heart Score/ECG Review - ECG Intrepretation Rhythm: Regular Rhythm - [place]: Normal - ST and T Early Repolarization: No Non Specific ST-T Wave changes: No - ECG Impressions Normal ECG: Yes Non-specific ST Elevation: No Ischemic Changes: No Bradycardia: No Torsades tiffany Pointes: No <Danii Arias - Last Filed: 09/28/18 00:08>
[2018-09-27] MEDS ORDERED: SODIUM CHLORIDE 1,000 ML IV STA (20:00)
[2018-09-27 21:15] LABS: EOS % 0.5 % (0-4.5); HEMATOCRIT 34.7 % (35.4-49); HEMOGLOBIN 11.7 GM/dL (11.7-16.9); LYMPH % 42.6 % (8-40); MCHC 33.7 g/dl (32.0-35.9); MEAN CELL VOLUME 97.9 fl (80-96); MEAN PLT VOLUME 8.6 fl (7.5-11.1); MONO % 7.8 % (3.8-10.2); NEUT % 48.1 % (42.8-82.8); PLATELET COUNT 171 K/MM3 (134-434); RBC 3.54 M/mm3 (4.00-5.60); RDW 14.9 % (11.9-15.9); WHITE BLOOD COUNT 5.6 K/mm3 (4.0-10.0)
--- NOTE | 2018-09-27 21:19 | PDOC ---
History of Present Illness <Danii Arias - Last Filed: 09/27/18 22:08> - General History Source: Patient, Old Records Exam Limitations: No Limitations - History of Present Illness Initial Comments: 09/27/18 21:14 Pt is a 52yo m with pmh of dm, seizures, alcohol use disorder, polysubstance use BIBA after a seizure episode 30 minutes prior to ED arrival. Seizure was witnessed by pt's girlfriend. Patient says he felt "like he was dying" then the seizure started. Pt says during these episodes he is unable to talk. He is fully conscious during these episodes. It lasted around 2 minutes. Pt does not feel confused afterward, has not lost control of bowel/bladder. Last seizure per patient was 6 months ago. He was hospitalize and states he had "100 seizures ". He takes Keppra. Pt says he took his doses late today. He denies loss of consciousness, fever, chills, chest pain, headache, changes in vision, cough, abdominal pain, n/v/d, urinary symptoms. Did not fall down or hit his head. Pt denies drug use. He says he only took a couple of sips of wine today but says he has been drinking about 8 glasses daily because he cannot sleep. Has never had seizures from alcohol withdrawal. PMD: Bubba PMH: see hpi PSH: see records Meds: insulin, Keppra Social: smokes 8 cigarettes/day, 8 glasses of wine/day. Allergies: nkda <Neetu Dawson - Last Filed: 09/28/18 07:26> - General Chief Complaint: Seizure Stated Complaint: SEIZURES Time Seen by Provider: 09/27/18 19:12 Past History <Danii Arias - Last Filed: 09/27/18 22:08> - Past Medical History Anemia: No Asthma: No Cancer: No Cardiac Disorders: No CVA: No COPD: No CHF: No Dementia: No Diabetes: Yes GI Disorders: No Disorders: No HTN: No Hypercholesterolemia: No Liver Disease: No Seizures: Yes Thyroid Disease: No - Surgical History Abdominal Surgery: No Cardiac Surgery: No Lung Surgery: No Neurologic Surgery: No - Immunization History Immunization Up to Date: Yes - Suicide/Smoking/Psychosocial Hx Smoking Status: Yes Smoking History: Never smoked Have you smoked in the past 12 months: No Number of Cigarettes Smoked Daily: 20 Information on smoking cessation initiated: No 'Breaking Loose' booklet given: 05/03/14 Hx Alcohol Use: No Drug/Substance Use Hx: No Substance Use Type: Alcohol Hx Substance Use Treatment: No <Neetu Dawson - Last Filed: 09/28/18 07:26> - Past Medical History Allergies/Adverse Reactions: Allergies Allergy/AdvReac Type Severity Reaction Status Date / Time No Known Allergies Allergy Verified 09/27/18 22:07 Home Medications: Ambulatory Orders Insulin Sliding Scale [Novolog Vial Sliding Scale -] 1 vial SQ ACHS units 04/05 levETIRAcetam [Keppra -] 500 mg PO BID tablet 04/05/18 Review of Systems - Review of Systems Constitutional: No: Symptoms Reported HEENTM: No: Symptoms Reported Respiratory: No: Symptoms reported Cardiac (ROS): No: Symptoms Reported ABD/GI: No: Symptoms Reported : No: Symptoms Reported Musculoskeletal: No: Symptoms Reported Integumentary: No: Symptoms Reported Neurological: Yes: See HPI, Seizure Psychiatric: No: Anxiety, Depression <Neetu Dawson - Last Filed: 09/28/18 07:26> *Physical Exam - Vital Signs Last Vital Signs Temp Pulse Resp BP Pulse Ox 99.4 F 95 H 12 142/79 98 09/27/18 19:30 09/27/18 22:05 09/27/18 22:05 09/27/18 22:05 09/27/18 19:05 <Danii Arias - Last Filed: 09/27/18 22:08> - Vital Signs Last Vital Signs Temp Pulse Resp BP Pulse Ox 98.1 F 92 H 18 133/78 98 09/27/18 19:05 09/27/18 19:05 09/27/18 19:05 09/27/18 19:05 09/27/18 19:05 - Physical Exam General Appearance: Yes: Nourished, Appropriately Dressed, Alcohol on Breath. No: Apparent Distress HEENT: positive: EOMI, PRAVIN, TMs Normal, Pharynx Normal Neck: positive: Trachea midline, Supple. negative: Lymphadenopathy (R), Lymphadenopathy (L) Respiratory/Chest: positive: Lungs Clear, Normal Breath Sounds. negative: Crackles, Rales, Rhonchi, Stridor, Wheezing Cardiovascular: positive: Regular Rhythm, Regular Rate, S1, S2. negative: Edema , JVD, Murmur Vascular Pulses: Carotid (R): 2+, Carotid (L): 2+, Dorsalis-Pedis (R): 2+, Doralis-Pedis (L): 2+ Gastrointestinal/Abdominal: positive: Normal Bowel Sounds, Soft. negative: Rebound, Tenderness Musculoskeletal: negative: CVA Tenderness Extremity: positive: Normal Capillary Refill. negative: Pedal Edema, Swelling Integumentary: positive: Normal Color, Dry, Warm, Other (healing L heel ulcer, no surrounding erythema or warmth) Neurologic: positive: coat fitter II-XII NML intact, Fully Oriented, Alert, Normal Mood/ Affect, Normal Response, Motor Strength 5/5 Deep Tendon Reflexes: Ankle (L): 2+, Ankle (R): 2+, Knee (L): 2+, Knee (R): 2+ <Neetu Dawson - Last Filed: 09/28/18 07:26> ED Treatment Course - LABORATORY CBC & Chemistry Diagram: 09/27/18 20:55 09/27/18 20:55 - ADDITIONAL ORDERS Additional order review: Laboratory Results 09/27/18 09/27/18 09/27/18 21:13 21:13 20:55 Sodium Potassium Chloride Carbon Dioxide Anion Gap BUN Creatinine Creat Clearance w eGFR POC Glucometer Random Glucose Lactic Acid Calcium Total Bilirubin AST ALT Alkaline Phosphatase Total Protein Albumin Urine Color Yellow Urine Appearance Clear Urine pH 5.0 Ur Specific [place] 1.021 Urine Protein Negative Urine Glucose (UA) 1+ H Urine Ketones Negative Urine Blood Negative Urine Nitrite Negative Urine Bilirubin Negative Urine Urobilinogen Negative Ur Leukocyte Esterase Negative Opiates Screen Positive A* Methadone Screen Negative Barbiturate Screen Negative Phencyclidine Screen Negative Ur Amphetamines Screen Negative MDMA (Ecstasy) Screen Negative Benzodiazepines Screen Negative Cocaine Screen Negative U Marijuana (THC) Screen Negative Alcohol, Quantitative 119.8 H 09/27/18 09/27/18 09/27/18 20:55 20:55 19:55 Sodium 135 L Potassium 4.1 Chloride 103 Carbon Dioxide 21 Anion Gap 11 BUN 18 Creatinine 0.9 Creat Clearance w eGFR > 60 POC Glucometer 225.54490 Random Glucose 157 H Lactic Acid 1.5 Calcium 8.0 L Total Bilirubin 1.1 H AST 277 H ALT 120 H Alkaline Phosphatase 104 Total Protein 7.6 Albumin 3.6 Urine Color Urine Appearance Urine pH Ur Specific [place] Urine Protein Urine Glucose (UA) Urine Ketones Urine Blood Urine Nitrite Urine Bilirubin Urine Urobilinogen Ur Leukocyte Esterase Opiates Screen Methadone Screen Barbiturate Screen Phencyclidine Screen Ur Amphetamines Screen MDMA (Ecstasy) Screen Benzodiazepines Screen Cocaine Screen U Marijuana (THC) Screen Alcohol, Quantitative 09/27/18 09/27/18 20:55 19:55 RBC 3.54 L MCV 97.9 H MCHC 33.7 RDW 14.9 MPV 8.6 Neutrophils % 48.1 D Lymphocytes % 42.6 H D Monocytes % 7.8 Eosinophils % 0.5 Basophils % 1.0 POC Glucometer 225.84149 - Medications Given in the ED: ED Medications Discontinued Medications Generic Name Dose Route Start Last Admin Trade Name Freq PRN Reason Stop Dose Admin Chlordiazepoxide HCl 100 mg 09/27/18 21:48 09/27/18 21:57 Librium - PO 09/27/18 21:49 100 mg ONCE ONE Administration Sodium Chloride 1,000 mls @ 1,000 mls/hr 09/27/18 20:00 09/27/18 21:08 Normal Saline - IV 09/27/18 20:59 1,000 mls/hr ASDIR STA Administration <Danii Arias - Last Filed: 09/27/18 22:08> - LABORATORY CBC & Chemistry Diagram: 09/27/18 20:55 09/27/18 20:55 - ADDITIONAL ORDERS Additional order review: Laboratory Results 09/27/18 19:55 POC Glucometer [id number] 09/27/18 19:55 POC Glucometer 225.31131 - Medications Given in the ED: ED Medications Discontinued Medications Generic Name Dose Route Start Last Admin Trade Name Freq PRN Reason Stop Dose Admin Sodium Chloride 1,000 mls @ 1,000 mls/hr 09/27/18 20:00 09/27/18 21:08 Normal Saline - IV 09/27/18 20:59 1,000 mls/hr ASDIR STA Administration <Neetu Dawson - Last Filed: 09/28/18 07:26> Medical Decision Making - Medical Decision Making 09/27/18 21:19 Pt is a 52yo m with pmh of dm, seizures, alcohol use disorder, polysubstance use BIBA after a seizure episode 30 minutes prior to ED arrival. Seizure was witnessed by pt's girlfriend. Per EMS, bgl was in the 90s. Vitals: wnl PE: benign ddx; seizures, alcohol withdrawal, electrolyte abnormality Pt had witnessed episode in ED by me. lasted around 2 minutes. Vitals stable, pt conscious and responsive, just unable to talk. Labs wnl. elevated blood alcohol, utox positive for opiates. Pt agreed to transfer to detox. Sent to detox. <Neetu Dawson - Last Filed: 09/28/18 07:26> *DC/Admit/Observation/Transfer <Danii Arias - Last Filed: 09/27/18 22:08> <Neetu Dawson - Last Filed: 09/28/18 07:26> Diagnosis at time of Disposition: Alcohol dependence with uncomplicated withdrawal, Alcoholic hepatitis Seizure Qualifiers: Convulsion type: unspecified Qualified Code(s): R56.9 - Unspecified convulsions - Discharge Dispostion Disposition: HOME Condition at time of disposition: Stable - Referrals Referrals: Cassidy Mac MD [Staff Physician] - - Patient Instructions Printed Discharge Instructions: DI for Seizure Disorder -- Adult Additional Instructions: You were seen here today for seizures. Keep taking Keppra. You have agreed to go to detox. Reducing the amount of alcohol consumed can help reduce seizures. The facility is located at [address] [place] [address] Please come back to the ED if seizures get worse, you feel lightheaded, you lose consciousness, or if any new concerning symptom develops. Thank you
[2018-09-27 21:35] LABS: URINE APPEARANCE CLEAR; URINE BILIRUBIN NEGATIVE (<2.0 mg/dL); URINE COLOR YELLOW; URINE GLUCOSE (UA) 1+ (NEGATIVE); URINE KETONE NEGATIVE (NEGATIVE); URINE LEUK ESTERASE NEGATIVE (NEGATIVE); URINE NITRITE NEGATIVE (NEGATIVE); URINE PROTEIN NEGATIVE (NEGATIVE); URINE UROBILINOGEN NEGATIVE mg/dL (0.2-1.0)
[2018-09-27 21:36] LABS: ALBUMIN 3.6 g/dl (3.4-5.0); ALK PHOS 104 U/L (45-117); ANION GAP 11 MMOL/L (8-16); BILIRUBIN,TOTAL 1.1 mg/dL (0.2-1); BLOOD UREA NITROGEN 18 mg/dL (7-18); CHLORIDE 103 mmol/L (98-107); CO2 21 mmol/L (21-32); CREATININE 0.9 mg/dL (0.55-1.3); GLUCOSE,RANDOM 157 mg/dL (74-106); POTASSIUM 4.1 mmol/L (3.5-5.1); SGOT/AST 277 U/L (15-37); SGPT/ALT 120 U/L (13-61); SODIUM 135 mmol/L (136-145); TOT PROT 7.6 g/dl (6.4-8.2)
[2018-09-27] MEDS ORDERED: chlordiazePOXIDE HCL 25 MG CAPSULE PO ONE (21:48)
[2018-09-27] MEDS ORDERED: chlordiazePOXIDE HCL 25 MG CAPSULE ONE (21:52)
[2018-09-27 21:55] LABS: COCAINE, UR NEGATIVE ng/ml (CUTOFF=300); METHADONE, UR NEGATIVE ng/ml (CUTOFF=300); PHENCYCLIDINE,URINE NEGATIVE ng/ml (CUTOFF=25); URINE AMPHETAMINES NEGATIVE ng/ml (CUTOFF=500); URINE BARBITURATES NEGATIVE ng/ml (CUTOFF=200); URINE BENZODIAZEPINES NEGATIVE ng/ml (CUTOFF=200)
[2018-09-27 22:03] LABS: OPIATES, URI POSITIVE ng/ml (CUTOFF=300)
[2018-09-27 22:07] VITALS: BP 142/79; PULSE 95; TEMP 99.4
--- NOTE | 2018-09-30 18:33 | EKG ---
Test Reason : Blood Pressure : / mmHG Vent. Rate : 086 BPM Atrial Rate : 086 BPM P-R Int : 118 ms QRS Dur : 086 ms QT Int : 360 ms P-R-T Axes : -08 046 050 degrees QTc Int : 430 ms NORMAL SINUS RHYTHM NORMAL ECG WHEN COMPARED WITH ECG OF 19-JUL-2018 23:01, NO SIGNIFICANT CHANGE WAS FOUND Confirmed by PARAS MCKEON MD ([id number]) on 09/30/2018 6:33:17 PM Referred By: Confirmed By:PARAS MCKEON MD
== END 2018-09-27 22:50 | disposition home or self-care (01) ==
LOC: JER 19:01
PROC: 3E0337Z Introduction of Electrolytic and Water Balance Substance into Peripheral Vein, Percutaneous Approach (ICD-10-PCS; principal; 2018-09-27)
DX: G40.909 Epilepsy, unspecified, not intractable, without status epilepticus (principal); E11.621 Type 2 diabetes mellitus with foot ulcer; Z79.4 Long term (current) use of insulin; F10.10 Alcohol abuse, uncomplicated
CPT/HCPCS: 36415; 80053; 80177; 80307; 81003; 82962; 83605; 85025; 93005; 93010; 96360; 99281-25; J7030

== ENCOUNTER 2018-10-02 20:24 | Inpatient (IN) | payer OTHER ==
--- NOTE | 2018-10-02 20:34 | PDOC ---
Rapid Medical Evaluation Time Seen by Provider: 10/02/18 20:29 Medical Evaluation: Allergies Allergy/AdvReac Type Severity Reaction Status Date / Time No Known Allergies Allergy Verified 09/27/18 22:07 10/02/18 20:33 I have performed a brief in-person evaluation of this patient. The patient presents with a chief complaint of: foot wound Pertinent physical exam findings: ~0.5 cm ulcer present to plantar surface of left foot. exposed fascia present. Erythema present to dorsum of left foot I have ordered the following: xray, labs The patient will proceed to the ED for further evaluation. Discharge Disposition - Diagnosis Diabetic foot ulcer - Referrals - Patient Instructions - Post Discharge Activity
--- NOTE | 2018-10-02 21:21 | PDOC ---
Attending Attestation - HPI HPI: This patient is a 52 year old male with PMHx type 2 diabetes, seizures, EtOH and polysubstance abuse, and depression who presents with chronic left foot wound. Patient states that he was getting his left foot wound taken care of but stopped going to the wound clinic 2 months ago since things started getting better.He comes in today since the wound has increased in size. <Flavia Soliz - Last Filed: 10/02/18 21:29> - Resident Resident Name: Vance Leyva - ED Attending Attestation I have performed the following: I have examined & evaluated the patient, The case was reviewed & discussed with the resident, I agree w/resident's findings & plan, Exceptions are as noted - Physicial Exam PE: GENERAL: Awake, alert, and fully oriented, in no acute distress HEAD: No signs of trauma EYES: PERRLA, EOMI, sclera anicteric, conjunctiva clear ENT: Auricles normal inspection, hearing grossly normal, nares patent, oropharynx clear without exudates. Moist mucosa NECK: Normal ROM, supple, no lymphadenopathy, JVD, or masses LUNGS: Breath sounds equal, clear to auscultation bilaterally. No wheezes, and no crackles HEART: Regular rate and rhythm, normal S1 and S2, no murmurs, rubs or gallops ABDOMEN: Soft, nontender, normoactive bowel sounds. No guarding, no rebound. No masses EXTREMITIES: Normal range of motion, no edema. No clubbing or cyanosis. No cords, erythema, or tenderness NEUROLOGICAL: Cranial nerves II through XII grossly intact. Normal speech. + Antalgic gait. SKIN: Warm, Dry, normal turgor, no rashes. L foot with large ulcer to the ball of the foot with surrounding erythema, swelling up to the ankle. - Medical Decision Making Pt with significant cellulitis to the L foot surrounding a foot ulcer. Will give IV abx, obtain XR and admit. 10/03/18 01:17 Pt with shaking hands and tongue fasciculations. I inquired about any recent drinking, last drink was yesterday. He denies any history of alcoholism, however , has been in detox multiple times and has "a few glasses of wine" per day. He has tongue fasciculations. Will give librium to prevent any worsening symptoms. <Desi Atkinson - Last Filed: 10/03/18 01:18>
[2018-10-02 21:46] LABS: BASO % 0.3 % (0-2.0); EOS % 0.2 % (0-4.5); HEMATOCRIT 24.6 % (35.4-49); HEMOGLOBIN 8.7 GM/dL (11.7-16.9); LYMPH % 17.3 % (8-40); MCH 34.9 pg (25.7-33.7); MCHC 35.4 g/dl (32.0-35.9); MEAN CELL VOLUME 98.5 fl (80-96); MEAN PLT VOLUME 9.7 fl (7.5-11.1); MONO % 9.4 % (3.8-10.2); NEUT % 72.8 % (42.8-82.8); RDW 14.7 % (11.9-15.9); WHITE BLOOD COUNT 9.7 K/mm3 (4.0-10.0)
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
[2018-10-02 22:16] LABS: ALBUMIN 2.9 g/dl (3.4-5.0); ALK PHOS 111 U/L (45-117); ANION GAP 9 MMOL/L (8-16); BLOOD UREA NITROGEN 8 mg/dL (7-18); CALCIUM 7.6 mg/dL (8.5-10.1); CHLORIDE 105 mmol/L (98-107); CO2 23 mmol/L (21-32); CREATININE 1.1 mg/dL (0.55-1.3); GLUCOSE,RANDOM 267 mg/dL (74-106); POTASSIUM 4.2 mmol/L (3.5-5.1); SGOT/AST 47 U/L (15-37); SGPT/ALT 39 U/L (13-61); SODIUM 137 mmol/L (136-145); TOT PROT 6.5 g/dl (6.4-8.2)
[2018-10-02 22:40] LABS: EOS % 0.4 % (0-4.5); HEMATOCRIT 25.8 % (35.4-49); HEMOGLOBIN 9.1 GM/dL (11.7-16.9); LYMPH % 20.4 % (8-40); MCH 34.5 pg (25.7-33.7); MCHC 35.2 g/dl (32.0-35.9); MEAN PLT VOLUME 9.9 fl (7.5-11.1); MONO % 9.5 % (3.8-10.2); NEUT % 68.7 % (42.8-82.8); PLATELET COUNT 99 K/MM3 (134-434); RBC 2.63 M/mm3 (4.00-5.60); RDW 14.8 % (11.9-15.9); WHITE BLOOD COUNT 10.8 K/mm3 (4.0-10.0)
[2018-10-02 22:46] LABS: PLATELET COUNT 94 K/MM3 (134-434); PLATELET ESTIMATE DECREASED
[2018-10-02] MEDS ORDERED: SODIUM CHLORIDE 1,000 ML IV STA ×2 (22:50→23:12)
[2018-10-02 23:09] LABS: INR 1.46 (0.83-1.09); PROTHROMBIN TIME (PATIENT) 17.3 SEC (9.7-13.0)
[2018-10-02] MEDS ORDERED: VANCOMYCIN 1,000 MG in DEXTROSE 5%-WATER - 250 ML IVPB ONE (23:11)
[2018-10-02] MEDS ORDERED: PIPERACILLIN/TAZOB 3.375 GM 3.375 GM in DEXTROSE 5%-WATER - 50 ML IVPB ONE (23:11)
[2018-10-02 23:12] LABS: ACTIVATED PTT 33.1 SECONDS (25.2-36.5)
[2018-10-02] MEDS ORDERED: VANCOMYCIN 1 GRAM (PRE-DOCKED) 1,000 MG/250 ML BAG IVPB ONE (23:16)
[2018-10-02] MEDS ORDERED: PIPERACILLIN/TAZOB 3.375 GM 3.375 GM/50 ML BAG IVPB ONE (23:17)
[2018-10-02 23:18] LABS: PLATELET ESTIMATE SLT DECREASE
[2018-10-02] MEDS ORDERED: SODIUM CHLORIDE 1,000 ML IV SCH (23:45)
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
[2018-10-03] MEDS ORDERED: MAG HYDROX/AL HYDROX/SIMETH 30 ML UNIT-DOSE CUP PO ONE (01:07)
[2018-10-03] MEDS ORDERED: MAG HYDROX/AL HYDROX/SIMETH 30 ML UNIT-DOSE CUP ONE (01:07)
[2018-10-03] MEDS ORDERED: levETIRAcetam 500 MG TABLET (FP) PO ONE ×2 (01:11→01:20)
[2018-10-03] MEDS ORDERED: chlordiazePOXIDE HCL 25 MG CAPSULE PO ONE (01:16)
--- NOTE | 2018-10-03 01:33 | HP ---
CHIEF COMPLAINT: DM foot ulcer. PCP: Dr. Vazquez HISTORY OF PRESENT ILLNESS: The patient is a 52 yo M w/ PMH ETOH abuse, IDDM w/ peripheral neuropathy, seizure disorder presents to the emergency department with a left foot ulcer. The patient states that he has had this ulcer for the past year. He was seen at [facility] wound care clinic 2 months ago, but states he stopped going as his wound was getting better. 2 days ago, the patient states that he was in the shower when he noticed his left foot had becomes hot, swollen and was leaking purulent discharge. Patient endorses pain with ambulation, but denies fever, chills, chest pain, SOB, abdominal pain. The patient refuses to see his PMD, Dr. Vazquez, stating that he "can no longer trust him" which is why [facility] was contacted for admission. ER course was notable for: (1) WBC 10.8, Hb 9.1, lactic acid 2.8 (2) foot xr showing soft tissue swelling (3) 2L NS Recent Travel: none PAST MEDICAL HISTORY: Seizure disorder ETOH abuse IDDM PAST SURGICAL HISTORY: Right leg surgery with placement of rods Social History: Smoking: Alcohol: occasional drinker Drugs: none Family History: non-contributory Allergies No Known Allergies Allergy (Verified 10/02/18 20:39) HOME MEDICATIONS: Home Medications Medication Instructions Recorded Insulin Sliding Scale [Novolog 1 vial SQ ACHS units 04/05/18 Vial Sliding Scale -] levETIRAcetam [Keppra -] 500 mg PO BID tablet 04/05/18 REVIEW OF SYSTEMS CONSTITUTIONAL: Absent: fever, chills, diaphoresis, generalized weakness, malaise, loss of appetite, weight change HEENT: Absent: rhinorrhea, nasal congestion, throat pain, throat swelling, difficulty swallowing, mouth swelling, ear pain, eye pain, visual changes CARDIOVASCULAR: Absent: chest pain, syncope, palpitations, irregular heart rate, lightheadedness , peripheral edema RESPIRATORY: Absent: cough, shortness of breath, dyspnea with exertion, orthopnea, wheezing, stridor, hemoptysis GASTROINTESTINAL: Absent: abdominal pain, abdominal distension, nausea, vomiting, diarrhea, constipation, melena, hematochezia GENITOURINARY: Absent: dysuria, frequency, urgency, hesitancy, hematuria, flank pain, genital pain MUSCULOSKELETAL: Absent: myalgia, arthralgia, back pain, neck pain SKIN: Absent: itching, pallor HEMATOLOGIC/IMMUNOLOGIC: Absent: easy bleeding, easy bruising, lymphadenopathy, frequent infections ENDOCRINE: Absent: unexplained weight gain, unexplained weight loss, heat intolerance, cold intolerance NEUROLOGIC: Absent: headache, focal weakness or paresthesias, dizziness, unsteady gait, seizure, mental status changes, bladder or bowel incontinence PSYCHIATRIC: Absent: anxiety, depression, suicidal or homicidal ideation, hallucinations. PHYSICAL EXAMINATION Vital Signs Temperature 98.0 F 10/02/18 20:36 Pulse Rate 94 H 10/02/18 20:36 Respiratory Rate 18 10/02/18 20:36 Blood Pressure 122/76 10/02/18 20:36 O2 Sat by Pulse Oximetry (%) 100 10/02/18 21:05 GENERAL: Awake, alert, and fully oriented, in no acute distress. Patient is moderately tremulous; states he is cold. HEAD: Normal with no signs of trauma. EYES: Pupils equal, round and reactive to light, extraocular movements intact, sclera anicteric, conjunctiva clear. No lid lag. LUNGS: Breath sounds equal, clear to auscultation bilaterally. No wheezes, and no crackles. No accessory muscle use. HEART: Regular rate and rhythm, normal S1 and S2 without murmur, rub or gallop. ABDOMEN: Soft, nontender, not distended, normoactive bowel sounds, no guarding, no rebound, no masses. No hepatomegaly or splenomegaly. LOWER EXTREMITIES: 2+ pulses, warm, well-perfused. No calf tenderness. The patient's left foot is swollen, erythematous and warm to touch from the toes up to just past the ankle. There is no tenderness to palpation. There is a single plantar ulcer approx 1.5 cm across. The ulcer probes deep to bone. The lesion is malodorous and purulent drainage can be easily expressed. NEUROLOGICAL: Cranial nerves II-X intact. Normal speech. Normal gait. PSYCHIATRIC: Cooperative. Good eye contact. Appropriate mood and affect. SKIN: Warm, dry, normal turgor, no rashes or lesions noted, normal capillary refill. Laboratory Results - last 24 hr 10/02/18 10/02/18 10/02/18 21:30 21:30 21:30 WBC 9.7 RBC 2.50 L Hgb 8.7 L Hct 24.6 L D MCV 98.5 H MCH 34.9 H MCHC 35.4 RDW 14.7 Plt Count 94 L D MPV 9.7 D Absolute Neuts (auto) 7.0 Neutrophils % 72.8 D Lymphocytes % 17.3 D Monocytes % 9.4 Eosinophils % 0.2 Basophils % 0.3 Nucleated RBC % 0 Platelet Estimate Decreased Platelet Comment No clumping noted PT with INR INR PTT (Actin FS) Sodium 137 Potassium 4.2 Chloride 105 Carbon Dioxide 23 Anion Gap 9 BUN 8 Creatinine 1.1 Creat Clearance w eGFR > 60 Random Glucose 267 H Lactic Acid 2.8 H* Calcium 7.6 L Total Bilirubin 1.0 AST 47 H ALT 39 Alkaline Phosphatase 111 Total Protein 6.5 Albumin 2.9 L Blood Type Antibody Screen 10/02/18 10/02/18 10/02/18 21:30 21:30 22:23 WBC 10.8 H RBC 2.63 L Hgb 9.1 L Hct 25.8 L MCV 98.0 H MCH 34.5 H MCHC 35.2 RDW 14.8 Plt Count 99 L MPV 9.9 Absolute Neuts (auto) 7.4 Neutrophils % 68.7 Lymphocytes % 20.4 Monocytes % 9.5 Eosinophils % 0.4 D Basophils % 1.0 D Nucleated RBC % 0 Platelet Estimate Slt decrease Platelet Comment No clumping noted PT with INR 17.30 H INR 1.46 H PTT (Actin FS) 33.1 Sodium Potassium Chloride Carbon Dioxide Anion Gap BUN Creatinine Creat Clearance w eGFR Random Glucose Lactic Acid Calcium Total Bilirubin AST ALT Alkaline Phosphatase Total Protein Albumin Blood Type O POSITIVE Antibody Screen Negative ASSESSMENT/PLAN: The patient is a 52 yo m w/ PMH DM, Seizure disorder and ETOH abuse who comes into the ED c/o worsening DM foot ulcer. #infected DM foot ulcer -s/p vanc/zosyn in the ED -c/w vanco 1g IV daily -c/w zosyn 3.375 Q6h -ID consult for further ABX management. -Patient has left leg hardware, MRI contraindicated. Will order triple phase bone scan to r/o osteo. -tylenol PRN pain -f/u bcx, wound Cx #lactic acidosis likely 2/2 DM foot infection -will hydrate -trend LA #Seizure disorder -patient takes keppra at home, unsure of dosage or other anticonvulsants -Will restart keppra 1g for now and verify medications in AM #ETOH abuse -montior CIWA, will implement detox protocol if patient has CIWA above 8 -will administer thiamine and folic acid #Anemia/thrombocytopenia -likely 2/2 ETOH abuse -will check B12, folate, iron studies #DM -ISS ACHS -BGM ACHS -holding home hypoglycemics for now #FEN -NS @ 75 x 1L -monitor lytes -diabetic diet #Prophy -lovenox 40mg SQ #Dispo -admit med surg -patient's medications are unconfirmed and should be verified with his pharmacy; [place] [facility] Visit type - Emergency Visit Emergency Visit: Yes ED Registration Date: 10/03/18 Care time: The patient presented to the Emergency Department on the above date and was hospitalized for further evaluation of their emergent condition. - New Patient This patient is new to me today: Yes Date on this admission: 10/03/18 - Critical Care Critical Care patient: No
[2018-10-03] MEDS ORDERED: MELATONIN 5 MG TABLETS PO PRN ×2 (02:05→03:52)
[2018-10-03] MEDS ORDERED: THIAMINE HCL 100 MG TABLET (FP) PO ONE (02:06)
[2018-10-03] MEDS: FOLIC ACID 1 MG TABLET (FP) PO SCH ×2 (04:15→10:21)
[2018-10-03] MEDS ORDERED: PIPERACILLIN/TAZOB 3.375 GM 3.375 GM in DEXTROSE 5%-WATER - 50 ML IVPB ONE (06:00)
[2018-10-03] MEDS ORDERED: HEPARIN NA (PORCINE) 5,000 UNITS/ML 1ML VIAL SQ SCH (06:00)
[2018-10-03] MEDS ORDERED: DEXTROSE 5%-WATER - 50 ML IVPB ONE ×4 (06:04→23:57)
[2018-10-03] MEDS ORDERED: PIPERACILLIN/TAZOBACTAM 3.375 GM VIAL IVPB ONE ×4 (06:04→23:57)
[2018-10-03] MEDS: INSULIN SLIDING SCALE (NOVOLOG) 1 VIAL SQ SCH ×4 (06:22→22:27)
[2018-10-03] MEDS ORDERED: INSULIN (NOVOLOG) ASPART 100 UNITS/ML 10ML VIAL ONE ×2 (08:09→11:49)
[2018-10-03 08:36] LABS: INR 1.65 (0.83-1.09); PROTHROMBIN TIME (PATIENT) 19.6 SEC (9.7-13.0)
[2018-10-03 09:17] LABS: BASO % 0.3 % (0-2.0); EOS % 0.3 % (0-4.5); HEMATOCRIT 21.5 % (35.4-49); LYMPH % 28.9 % (8-40); MCH 34.9 pg (25.7-33.7); MCHC 35.7 g/dl (32.0-35.9); MEAN CELL VOLUME 97.8 fl (80-96); MEAN PLT VOLUME 9.8 fl (7.5-11.1); MONO % 9.9 % (3.8-10.2); NEUT % 60.6 % (42.8-82.8); PLATELET COUNT 85 K/MM3 (134-434); RDW 14.3 % (11.9-15.9); WHITE BLOOD COUNT 9.5 K/mm3 (4.0-10.0)
[2018-10-03 09:19] LABS: HEMOGLOBIN 7.7 GM/dL (11.7-16.9)
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
[2018-10-03 09:26] LABS: ALBUMIN 2.3 g/dl (3.4-5.0); ALK PHOS 87 U/L (45-117); ANION GAP 8 MMOL/L (8-16); BILIRUBIN,TOTAL 0.8 mg/dL (0.2-1); BLOOD UREA NITROGEN 7 mg/dL (7-18); CHLORIDE 104 mmol/L (98-107); CO2 21 mmol/L (21-32); CREATININE 0.8 mg/dL (0.55-1.3); GLUCOSE,RANDOM 189 mg/dL (74-106); MAGNESIUM 1.4 mg/dL (1.8-2.4); POTASSIUM 3.3 mmol/L (3.5-5.1); SGOT/AST 34 U/L (15-37); SGPT/ALT 32 U/L (13-61); SODIUM 133 mmol/L (136-145); TOT PROT 5.5 g/dl (6.4-8.2)
[2018-10-03 09:33] LABS: PHOSPHOROUS 0.8 mg/dL (2.5-4.9)
[2018-10-03] MEDS: ENOXAPARIN NA (PORCINE) 40 MG/0.4 ML DISP.SYRIN SQ SCH (10:20)
[2018-10-03] MEDS: PIPERACILLIN/TAZOB 3.375 GM 3.375 GM in DEXTROSE 5%-WATER - 50 ML IVPB SCH ×2 (10:20→17:13)
--- NOTE | 2018-10-03 10:20 | HP ---
DATE OF ADMISSION: 10/03/2018 This is a 52-year-old male known to me for many years. He is diagnosed to have type 2 diabetes on insulin, alcoholic, whose last admission to the hospital with a left foot ulcer, turned out to be osteomyelitis, was admitted to chronic care facility and received IV antibiotics. The wound completely healed. Was seen in the office about 3 weeks ago. Now, he comes to the ER again with complaints of ulcer on the same area, left foot on the bottom of the sole on the anterior aspect. PHYSICAL EXAMINATION: General: He is awake, alert, oriented x3. Vital Signs: BP 120/75, pulse 94, respirations 20, temperature 99.8. HEENT: Unremarkable. Neck: Supple. No JVD. Lungs: Clear. Heart: S1, S2. Normal. No S3, S4. Abdomen: Soft, nontender. Rectal: Not done. Neurological: Normal. Extremities: Left foot ulcer with pus draining. Leg also has swelling. No vascular deficit. LABORATORY REPORTS: This morning, WBC 9.5, hemoglobin 7.7, platelets 85. Chemistry: Sodium 133, potassium 3.3, BUN 7, creatinine 0.8. Lactic acid 2.2. Phosphorus low. Magnesium 1.4. Albumin is 2.3. B12 of 745. Chest x-ray not done. Foot ulcer: No acute changes. DIAGNOSES: 1. Ulcer, left foot. 2. Diabetes. 3. Alcoholism. 4. Electrolyte abnormalities. PLAN: ID consult, IV antibiotics, continue present medications. Will follow. Wound care consult to Dr. Lizandro Sheldon. Rusty [id number]
[2018-10-03] MEDS: levETIRAcetam 500 MG TABLET (FP) PO SCH ×2 (10:21→22:24)
[2018-10-03] MEDS: PANTOPRAZOLE 40 MG TABLET (FP) PO SCH (10:21)
[2018-10-03] MEDS: ACETAMINOPHEN 325 MG TABLET (FP) PO PRN ×2 (10:45→18:23)
[2018-10-03] MEDS ORDERED: FLU VACCINE QUAD 60 MCG/0.5 ML (MDV 18-19) IM ONE (14:00)
[2018-10-03] MEDS: VANCOMYCIN 1 GRAM (PRE-DOCKED) 1,000 MG/250 ML BAG IVPB SCH (14:26)
[2018-10-03] MEDS ORDERED: PIPERACILLIN/TAZOB 3.375 GM 3.375 GM in DEXTROSE 5%-WATER - 50 ML IVPB SCH (15:00)
[2018-10-03] MEDS: oxyCODONE HCL 5 MG TABLET PO PRN (18:25)
[2018-10-03] MEDS ORDERED: VANCOMYCIN 1 GRAM (PRE-DOCKED) 1,000 MG/250 ML BAG IVPB ONE (22:00)
[2018-10-03] MEDS: MAGNESIUM OXIDE 400 MG TABLET (FP) PO SCH (22:25)
[2018-10-03] MEDS: ZOLPIDEM TARTRATE 5 MG TABLET PO PRN (22:25)
[2018-10-03] MEDS: POTASSIUM CHLORIDE TABS 20 MEQ TABLET.ER (FP) PO SCH (22:25)
[2018-10-04] MEDS: VANCOMYCIN 1 GRAM (PRE-DOCKED) 1,000 MG/250 ML BAG IVPB SCH ×3 (00:05→23:12)
[2018-10-04] MEDS: PIPERACILLIN/TAZOB 3.375 GM 3.375 GM in DEXTROSE 5%-WATER - 50 ML IVPB SCH ×3 (01:49→17:41)
[2018-10-04 06:06] LABS: SERUM IRON SATURATION 11 % (15-55); TOTAL IRON BINDING CAPACITY 161 ug/dL (250-450); UIBC 143 ug/dL (111-343)
[2018-10-04] MEDS: INSULIN SLIDING SCALE (NOVOLOG) 1 VIAL SQ SCH ×4 (06:34→21:44)
--- NOTE | 2018-10-04 09:48 | PN ---
Progress Note, Physician Chief Complaint: Feels better History of Present Illness: Admitted with diabetic foot ulcer Lt foot - Current Medication List Current Medications: Active Medications Acetaminophen (Tylenol -) 650 mg PO Q6H PRN PRN Reason: PAIN LEVEL 1-5 Last Admin: 10/03/18 18:23 Dose: 650 mg Enoxaparin Sodium (Lovenox -) 40 mg SQ DAILY [facility] Last Admin: 10/03/18 10:20 Dose: 40 mg Folic Acid (Folic Acid -) 1 mg PO DAILY [facility] Last Admin: 10/03/18 10:21 Dose: 1 mg Vancomycin HCl (Vancomycin (Pre-Docked)) 1,000 mg in 250 mls @ 166.667 mls/hr IVPB BID@0000,1200 [facility]; Protocol Last Admin: 10/04/18 00:05 Dose: 166.667 mls/hr Piperacillin Sod/Tazobactam (Sod 3.375 gm/ Dextrose) 50 mls @ 100 mls/hr IVPB Q8H-IV [facility]; Protocol Last Admin: 10/04/18 01:49 Dose: 100 mls/hr Insulin Aspart (Novolog Vial Sliding Scale -) 1 vial SQ ACHS [facility]; Protocol Last Admin: 10/04/18 06:34 Dose: 2 unit Levetiracetam (Keppra -) 500 mg PO BID [facility] Last Admin: 10/03/18 22:24 Dose: 500 mg Magnesium Oxide (Mag-Ox -) 400 mg PO BID [facility] Last Admin: 10/03/18 22:25 Dose: 400 mg Melatonin (Melatonin) 10 mg PO HS PRN PRN Reason: INSOMNIA Last Admin: 10/03/18 04:57 Dose: 10 mg Oxycodone HCl (Roxicodone -) 5 mg PO Q8H PRN PRN Reason: PAIN LEVEL 6-10 Last Admin: 10/03/18 18:25 Dose: 5 mg Pantoprazole Sodium (Protonix -) 40 mg PO DAILY [facility] Last Admin: 10/03/18 10:21 Dose: 40 mg Potassium Chloride (K-Dur -) 20 meq PO BID [facility] Last Admin: 10/03/18 22:25 Dose: 20 meq Zolpidem Tartrate (Ambien -) 10 mg PO HS PRN PRN Reason: INSOMNIA Last Admin: 10/03/18 22:25 Dose: 10 mg - Objective Vital Signs: Vital Signs Temperature 98.9 F 10/03/18 17:00 Pulse Rate 89 10/04/18 02:00 Respiratory Rate 18 10/04/18 02:00 Blood Pressure 143/79 10/04/18 02:00 O2 Sat by Pulse Oximetry (%) 99 10/03/18 21:00 Constitutional: Yes: No Distress Eyes: Yes: WNL HENT: Yes: WNL Neck: Yes: WNL Cardiovascular: Yes: WNL Respiratory: Yes: WNL Gastrointestinal: Yes: WNL ...Rectal Exam: Yes: Deferred Genitourinary: Yes: WNL Extremities: Yes: Other (Lt leg swelling better) Labs: CBC, BMP 10/03/18 06:00 10/03/18 06:00 INR, PTT INR 1.65 (0.83-1.09) H 10/03/18 06:00 Assessment/Plan Continue same trt
[2018-10-04] MEDS ORDERED: DEXTROSE 5%-WATER - 50 ML IVPB ONE ×2 (10:08→17:38)
[2018-10-04] MEDS ORDERED: PIPERACILLIN/TAZOBACTAM 3.375 GM VIAL IVPB ONE ×2 (10:08→17:38)
[2018-10-04] MEDS: ENOXAPARIN NA (PORCINE) 40 MG/0.4 ML DISP.SYRIN SQ SCH (10:11)
[2018-10-04] MEDS: POTASSIUM CHLORIDE TABS 20 MEQ TABLET.ER (FP) PO SCH ×2 (10:11→21:33)
[2018-10-04] MEDS: oxyCODONE HCL 5 MG TABLET PO PRN ×2 (10:11→18:30)
[2018-10-04] MEDS: levETIRAcetam 500 MG TABLET (FP) PO SCH ×2 (10:11→21:34)
[2018-10-04] MEDS: FOLIC ACID 1 MG TABLET (FP) PO SCH (10:13)
[2018-10-04] MEDS: PANTOPRAZOLE 40 MG TABLET (FP) PO SCH (10:13)
[2018-10-04] MEDS: MAGNESIUM OXIDE 400 MG TABLET (FP) PO SCH ×2 (11:58→21:34)
[2018-10-04] MEDS: ACETAMINOPHEN 325 MG TABLET (FP) PO PRN (13:01)
[2018-10-04] MEDS ORDERED: VANCOMYCIN 1 GRAM (PRE-DOCKED) 1,000 MG/250 ML BAG IVPB SCH (22:00)
[2018-10-04] MEDS: ZOLPIDEM TARTRATE 5 MG TABLET PO PRN (23:11)
[2018-10-05] MEDS ORDERED: DEXTROSE 5%-WATER - 50 ML IVPB ONE ×4 (01:53→23:01)
[2018-10-05] MEDS ORDERED: PIPERACILLIN/TAZOBACTAM 3.375 GM VIAL IVPB ONE ×4 (01:53→23:00)
[2018-10-05] MEDS: oxyCODONE HCL 5 MG TABLET PO PRN ×3 (02:05→19:04)
[2018-10-05] MEDS: PIPERACILLIN/TAZOB 3.375 GM 3.375 GM in DEXTROSE 5%-WATER - 50 ML IVPB SCH ×3 (02:45→17:08)
[2018-10-05] MEDS: INSULIN SLIDING SCALE (NOVOLOG) 1 VIAL SQ SCH ×4 (06:50→22:17)
--- NOTE | 2018-10-05 09:02 | PN ---
Progress Note, Physician Chief Complaint: Feels better History of Present Illness: MRI shows ostiomylitis - Current Medication List Current Medications: Active Medications Acetaminophen (Tylenol -) 650 mg PO Q6H PRN PRN Reason: PAIN LEVEL 1-5 Last Admin: 10/04/18 13:01 Dose: 650 mg Enoxaparin Sodium (Lovenox -) 40 mg SQ DAILY [facility] Last Admin: 10/04/18 10:11 Dose: 40 mg Folic Acid (Folic Acid -) 1 mg PO DAILY [facility] Last Admin: 10/04/18 10:13 Dose: 1 mg Vancomycin HCl (Vancomycin (Pre-Docked)) 1,000 mg in 250 mls @ 166.667 mls/hr IVPB BID@0000,1200 [facility]; Protocol Last Admin: 10/04/18 23:12 Dose: 166.667 mls/hr Piperacillin Sod/Tazobactam (Sod 3.375 gm/ Dextrose) 50 mls @ 100 mls/hr IVPB Q8H-IV [facility]; Protocol Last Admin: 10/05/18 02:45 Dose: 100 mls/hr Insulin Aspart (Novolog Vial Sliding Scale -) 1 vial SQ ACHS [facility]; Protocol Last Admin: 10/05/18 06:50 Dose: 4 unit Levetiracetam (Keppra -) 500 mg PO BID [facility] Last Admin: 10/04/18 21:34 Dose: 500 mg Magnesium Oxide (Mag-Ox -) 400 mg PO BID [facility] Last Admin: 10/04/18 21:34 Dose: 400 mg Melatonin (Melatonin) 10 mg PO HS PRN PRN Reason: INSOMNIA Last Admin: 10/03/18 04:57 Dose: 10 mg Oxycodone HCl (Roxicodone -) 5 mg PO Q8H PRN PRN Reason: PAIN LEVEL 6-10 Last Admin: 10/05/18 02:05 Dose: 5 mg Pantoprazole Sodium (Protonix -) 40 mg PO DAILY [facility] Last Admin: 10/04/18 10:13 Dose: 40 mg Potassium Chloride (K-Dur -) 20 meq PO BID [facility] Last Admin: 10/04/18 21:33 Dose: 20 meq Zolpidem Tartrate (Ambien -) 10 mg PO HS PRN PRN Reason: INSOMNIA Last Admin: 10/04/18 23:11 Dose: 10 mg - Objective Vital Signs: Vital Signs Temperature 99.5 F 10/05/18 06:00 Pulse Rate 88 10/05/18 06:00 Respiratory Rate 18 10/05/18 06:00 Blood Pressure 128/72 10/05/18 06:00 O2 Sat by Pulse Oximetry (%) 99 10/04/18 21:00 Constitutional: Yes: No Distress Eyes: Yes: WNL HENT: Yes: WNL Neck: Yes: WNL Cardiovascular: Yes: WNL Respiratory: Yes: WNL Gastrointestinal: Yes: Normal Bowel Sounds ...Rectal Exam: Yes: Deferred Genitourinary: Yes: WNL Edema: No Wound/Incision: Yes: Clean/Dry ...Motor Strength: WNL Psychiatric: Yes: Alert Labs: CBC, BMP 10/03/18 06:00 10/03/18 06:00 INR, PTT INR 1.65 (0.83-1.09) H 10/03/18 06:00 - ....Imaging MRI: Report Reviewed, Image Reviewed Assessment/Plan Continue IV antibiotics
[2018-10-05 10:00] LABS: HEMOGLOBIN 8.9 GM/dL (11.7-16.9); MCH 34.8 pg (25.7-33.7); MCHC 35.5 g/dl (32.0-35.9); MEAN CELL VOLUME 98.1 fl (80-96); MEAN PLT VOLUME 8.4 fl (7.5-11.1); PLATELET COUNT 156 K/MM3 (134-434); RBC 2.55 M/mm3 (4.00-5.60); RDW 14.1 % (11.9-15.9); WHITE BLOOD COUNT 6.8 K/mm3 (4.0-10.0)
[2018-10-05] MEDS: MAGNESIUM OXIDE 400 MG TABLET (FP) PO SCH ×2 (10:06→22:09)
[2018-10-05] MEDS: PANTOPRAZOLE 40 MG TABLET (FP) PO SCH (10:06)
[2018-10-05] MEDS: FOLIC ACID 1 MG TABLET (FP) PO SCH (10:06)
[2018-10-05] MEDS: levETIRAcetam 500 MG TABLET (FP) PO SCH ×2 (10:07→22:09)
[2018-10-05] MEDS: POTASSIUM CHLORIDE TABS 20 MEQ TABLET.ER (FP) PO SCH ×2 (10:07→22:09)
[2018-10-05] MEDS: ENOXAPARIN NA (PORCINE) 40 MG/0.4 ML DISP.SYRIN SQ SCH (10:10)
[2018-10-05 10:17] LABS: ANION GAP 8 MMOL/L (8-16); BLOOD UREA NITROGEN 4 mg/dL (7-18); CALCIUM 7.8 mg/dL (8.5-10.1); CHLORIDE 98 mmol/L (98-107); CO2 24 mmol/L (21-32); CREATININE 0.8 mg/dL (0.55-1.3); GLUCOSE,RANDOM 142 mg/dL (74-106); POTASSIUM 3.9 mmol/L (3.5-5.1); SODIUM 130 mmol/L (136-145)
[2018-10-05] MEDS ORDERED: INSULIN (NOVOLOG) ASPART 100 UNITS/ML 10ML VIAL ONE ×2 (11:26→20:58)
--- NOTE | 2018-10-05 13:43 | PN ---
Progress Note, Physician History of Present Illness: No c/o foot pain MRI shows osteomyelitis/ abscess Wound c/s polymicrobial including MRSA - Current Medication List Current Medications: Active Medications Acetaminophen (Tylenol -) 650 mg PO Q6H PRN PRN Reason: PAIN LEVEL 1-5 Last Admin: 10/04/18 13:01 Dose: 650 mg Enoxaparin Sodium (Lovenox -) 40 mg SQ DAILY [facility] Last Admin: 10/05/18 10:10 Dose: 40 mg Folic Acid (Folic Acid -) 1 mg PO DAILY [facility] Last Admin: 10/05/18 10:06 Dose: 1 mg Vancomycin HCl (Vancomycin (Pre-Docked)) 1,000 mg in 250 mls @ 166.667 mls/hr IVPB BID@0000,1200 [facility]; Protocol Last Admin: 10/04/18 23:12 Dose: 166.667 mls/hr Piperacillin Sod/Tazobactam (Sod 3.375 gm/ Dextrose) 50 mls @ 100 mls/hr IVPB Q8H-IV [facility]; Protocol Last Admin: 10/05/18 10:10 Dose: 100 mls/hr Insulin Aspart (Novolog Vial Sliding Scale -) 1 vial SQ ACHS [facility]; Protocol Last Admin: 10/05/18 12:02 Dose: 6 unit Levetiracetam (Keppra -) 500 mg PO BID [facility] Last Admin: 10/05/18 10:07 Dose: 500 mg Magnesium Oxide (Mag-Ox -) 400 mg PO BID [facility] Last Admin: 10/05/18 10:06 Dose: 400 mg Melatonin (Melatonin) 10 mg PO HS PRN PRN Reason: INSOMNIA Last Admin: 10/03/18 04:57 Dose: 10 mg Oxycodone HCl (Roxicodone -) 5 mg PO Q8H PRN PRN Reason: PAIN LEVEL 6-10 Last Admin: 10/05/18 10:07 Dose: 5 mg Pantoprazole Sodium (Protonix -) 40 mg PO DAILY [facility] Last Admin: 10/05/18 10:06 Dose: 40 mg Potassium Chloride (K-Dur -) 20 meq PO BID [facility] Last Admin: 10/05/18 10:07 Dose: 20 meq Zolpidem Tartrate (Ambien -) 10 mg PO HS PRN PRN Reason: INSOMNIA Last Admin: 10/04/18 23:11 Dose: 10 mg - Objective Vital Signs: Vital Signs Temperature 98.8 F 10/05/18 10:16 Pulse Rate 88 10/05/18 10:16 Respiratory Rate 18 10/05/18 10:16 Blood Pressure 120/70 10/05/18 10:16 O2 Sat by Pulse Oximetry (%) 99 10/04/18 21:00 Constitutional: Yes: No Distress Cardiovascular: Yes: Regular Rate and Rhythm, S1, S2 Respiratory: Yes: CTA Bilaterally Gastrointestinal: Yes: Normal Bowel Sounds, Soft. No: Other Extremities: Yes: Other (+ plantar ulcer L foot; + toe/ foot swelling/ erythema extending to dorsum) Labs: CBC, BMP 10/05/18 09:10 10/05/18 09:10 INR, PTT INR 1.65 (0.83-1.09) H 10/03/18 06:00 Assessment/Plan Infected foot ulcer/ abscess/ osteomyelitis + MRSA Surgical evaluation Continue vancomycin/ zosyn Contact precautions
[2018-10-05] MEDS: VANCOMYCIN 1 GRAM (PRE-DOCKED) 1,000 MG/250 ML BAG IVPB SCH ×2 (13:46→23:31)
[2018-10-05 16:44] VITALS: BMI 18.9
[2018-10-05] MEDS ORDERED: PT OWN MED DRAWER 7, Y5N ONE (20:57)
[2018-10-05] MEDS: ZOLPIDEM TARTRATE 5 MG TABLET PO PRN (22:09)
[2018-10-05] MEDS ORDERED: INSULIN (NOVOLOG) ASPART 100 UNITS/ML 10ML VIAL SQ ONE (22:45)
[2018-10-06] MEDS: PIPERACILLIN/TAZOB 3.375 GM 3.375 GM in DEXTROSE 5%-WATER - 50 ML IVPB SCH ×3 (02:47→17:24)
[2018-10-06] MEDS: oxyCODONE HCL 5 MG TABLET PO PRN ×3 (03:04→20:05)
[2018-10-06] MEDS: INSULIN SLIDING SCALE (NOVOLOG) 1 VIAL SQ SCH ×4 (06:37→23:25)
[2018-10-06 08:40] LABS: BASO % 0.5 % (0-2.0); EOS % 1.2 % (0-4.5); HEMATOCRIT 24.4 % (35.4-49); HEMOGLOBIN 8.1 GM/dL (11.7-16.9); LYMPH % 44.2 % (8-40); MCH 32.9 pg (25.7-33.7); MCHC 33.1 g/dl (32.0-35.9); MEAN CELL VOLUME 99.2 fl (80-96); MEAN PLT VOLUME 7.5 fl (7.5-11.1); MONO % 18.1 % (3.8-10.2); PLATELET COUNT 176 K/MM3 (134-434); RBC 2.45 M/mm3 (4.00-5.60); RDW 14.4 % (11.9-15.9); WHITE BLOOD COUNT 6.3 K/mm3 (4.0-10.0)
[2018-10-06 09:22] LABS: ALBUMIN 2.4 g/dl (3.4-5.0); ALK PHOS 70 U/L (45-117); ANION GAP 6 MMOL/L (8-16); BILIRUBIN,TOTAL 0.4 mg/dL (0.2-1); BLOOD UREA NITROGEN 3 mg/dL (7-18); CHLORIDE 100 mmol/L (98-107); CO2 27 mmol/L (21-32); CREATININE 0.9 mg/dL (0.55-1.3); GLUCOSE,RANDOM 140 mg/dL (74-106); MAGNESIUM 1.7 mg/dL (1.8-2.4); POTASSIUM 3.9 mmol/L (3.5-5.1); SGOT/AST 25 U/L (15-37); SGPT/ALT 22 U/L (13-61); SODIUM 133 mmol/L (136-145); TOT PROT 6.1 g/dl (6.4-8.2)
[2018-10-06] MEDS ORDERED: PIPERACILLIN/TAZOBACTAM 3.375 GM VIAL IVPB ONE ×2 (09:54→17:21)
[2018-10-06] MEDS ORDERED: PT OWN MED DRAWER 7, Y5N ONE (09:54)
[2018-10-06] MEDS ORDERED: DEXTROSE 5%-WATER - 50 ML IVPB ONE ×2 (09:55→17:21)
[2018-10-06] MEDS: PANTOPRAZOLE 40 MG TABLET (FP) PO SCH (10:01)
[2018-10-06] MEDS: FOLIC ACID 1 MG TABLET (FP) PO SCH (10:01)
[2018-10-06] MEDS: MAGNESIUM OXIDE 400 MG TABLET (FP) PO SCH ×2 (10:01→22:42)
[2018-10-06] MEDS: POTASSIUM CHLORIDE TABS 20 MEQ TABLET.ER (FP) PO SCH ×2 (10:01→22:42)
[2018-10-06] MEDS: levETIRAcetam 500 MG TABLET (FP) PO SCH ×2 (10:01→22:42)
[2018-10-06] MEDS: ENOXAPARIN NA (PORCINE) 40 MG/0.4 ML DISP.SYRIN SQ SCH (10:02)
[2018-10-06] MEDS: ACETAMINOPHEN 325 MG TABLET (FP) PO PRN ×2 (11:48→20:03)
[2018-10-06] MEDS: VANCOMYCIN 1 GRAM (PRE-DOCKED) 1,000 MG/250 ML BAG IVPB SCH (11:49)
--- NOTE | 2018-10-06 12:39 | PN ---
Progress Note, Physician Chief Complaint: Feels better History of Present Illness: Diabetic foot ulcer with ostiomylitis On IV antibiotics - Current Medication List Current Medications: Active Medications Acetaminophen (Tylenol -) 650 mg PO Q6H PRN PRN Reason: PAIN LEVEL 1-5 Last Admin: 10/06/18 11:48 Dose: 650 mg Enoxaparin Sodium (Lovenox -) 40 mg SQ DAILY [facility] Last Admin: 10/06/18 10:02 Dose: 40 mg Folic Acid (Folic Acid -) 1 mg PO DAILY [facility] Last Admin: 10/06/18 10:01 Dose: 1 mg Vancomycin HCl (Vancomycin (Pre-Docked)) 1,000 mg in 250 mls @ 166.667 mls/hr IVPB BID@0000,1200 [facility]; Protocol Last Admin: 10/06/18 11:49 Dose: 166.667 mls/hr Piperacillin Sod/Tazobactam (Sod 3.375 gm/ Dextrose) 50 mls @ 100 mls/hr IVPB Q8H-IV [facility]; Protocol Last Admin: 10/06/18 10:01 Dose: 100 mls/hr Insulin Aspart (Novolog Vial Sliding Scale -) 1 vial SQ ACHS [facility]; Protocol Last Admin: 10/06/18 11:51 Dose: 8 unit Levetiracetam (Keppra -) 500 mg PO BID [facility] Last Admin: 10/06/18 10:01 Dose: 500 mg Magnesium Oxide (Mag-Ox -) 400 mg PO BID [facility] Last Admin: 10/06/18 10:01 Dose: 400 mg Melatonin (Melatonin) 10 mg PO HS PRN PRN Reason: INSOMNIA Last Admin: 10/03/18 04:57 Dose: 10 mg Oxycodone HCl (Roxicodone -) 5 mg PO Q8H PRN PRN Reason: PAIN LEVEL 6-10 Last Admin: 10/06/18 11:47 Dose: 5 mg Pantoprazole Sodium (Protonix -) 40 mg PO DAILY [facility] Last Admin: 10/06/18 10:01 Dose: 40 mg Potassium Chloride (K-Dur -) 20 meq PO BID [facility] Last Admin: 10/06/18 10:01 Dose: 20 meq Zolpidem Tartrate (Ambien -) 10 mg PO HS PRN PRN Reason: INSOMNIA Last Admin: 10/05/18 22:09 Dose: 10 mg - Objective Vital Signs: Vital Signs Temperature 99.1 F 10/06/18 06:00 Pulse Rate 70 10/06/18 06:00 Respiratory Rate 18 10/06/18 06:00 Blood Pressure 118/61 10/06/18 06:00 O2 Sat by Pulse Oximetry (%) 99 10/05/18 21:00 Constitutional: Yes: No Distress Eyes: Yes: WNL HENT: Yes: WNL Neck: Yes: WNL Cardiovascular: Yes: WNL Respiratory: Yes: WNL Gastrointestinal: Yes: WNL ...Rectal Exam: Yes: Deferred Genitourinary: Yes: WNL Edema: No Wound/Incision: Yes: Clean/Dry Labs: CBC, BMP 10/06/18 08:05 10/06/18 08:05 INR, PTT INR 1.65 (0.83-1.09) H 10/03/18 06:00 Assessment/Plan Marie level still low Continue same trt
[2018-10-06] MEDS: ZOLPIDEM TARTRATE 5 MG TABLET PO PRN (22:42)
[2018-10-07] MEDS: VANCOMYCIN 1 GRAM (PRE-DOCKED) 1,000 MG/250 ML BAG IVPB SCH ×2 (00:10→11:50)
[2018-10-07] MEDS ORDERED: PIPERACILLIN/TAZOBACTAM 3.375 GM VIAL IVPB ONE ×2 (01:34→09:49)
[2018-10-07] MEDS ORDERED: DEXTROSE 5%-WATER - 50 ML IVPB ONE ×2 (01:34→09:49)
[2018-10-07] MEDS: PIPERACILLIN/TAZOB 3.375 GM 3.375 GM in DEXTROSE 5%-WATER - 50 ML IVPB SCH ×2 (01:37→09:52)
[2018-10-07] MEDS: oxyCODONE HCL 5 MG TABLET PO PRN ×3 (06:27→22:33)
[2018-10-07] MEDS: ACETAMINOPHEN 325 MG TABLET (FP) PO PRN ×2 (06:28→12:01)
[2018-10-07] MEDS: INSULIN SLIDING SCALE (NOVOLOG) 1 VIAL SQ SCH ×4 (06:42→22:32)
--- NOTE | 2018-10-07 08:49 | CONSULT ---
- Consultation REQUESTING PROVIDER: CONSULT REQUEST: We have been asked to surgically evaluate this patient for Left foot wound PCP:Cassidy Mac HISTORY OF PRESENT ILLNESS: Vascular surgery was consulted to evaluate pt for Left foot wound. Pt states that he has had a foot wound for about 1 year, and that it was improving, but that it recently opened. Pt states that he went to a wound care center down the street, but does not remember the name. Pt denies fever, chills, n/v. Pt states that he has some neuropathy in his feet. Pt states he smokes 1/2ppd x 20yrs PMHx: DM, HLD Home Medications Medication Instructions Recorded Insulin Sliding Scale [Novolog 1 vial SQ ACHS units 04/05/18 Vial Sliding Scale -] levETIRAcetam [Keppra -] 500 mg PO BID tablet 04/05/18 Zolpidem Tartrate [Ambien] 10 mg PO HS 10/03/18 Allergies Allergy/AdvReac Type Severity Reaction Status Date / Time No Known Allergies Allergy Verified 10/02/18 20:39 REVIEW OF SYSTEMS: CONSTITUTIONAL: Absent: fever, chills, diaphoresis, generalized weakness, malaise, loss of appetite, weight change CARDIOVASCULAR: Absent: chest pain, syncope, palpitations, irregular heart rate, lightheadedness , peripheral edema RESPIRATORY: Absent: cough, shortness of breath, dyspnea with exertion, wheezing, stridor, hemoptysis PSYCHIATRIC: Absent: anxiety, depression, suicidal or homicidal ideation, hallucinations. PHYSICAL EXAM: GENERAL: Awake, alert, and fully oriented, in no acute distress. HEAD: Normal with no signs of trauma. EYES: PERRL, sclera anicteric, conjunctiva clear. NECK: Normal ROM, supple without lymphadenopathy, JVD, or masses. LUNGS: Clear to auscultation bilat anteriorly. No wheezes, and no crackles. No accessory muscle use. HEART: Regular rate and rhythm. No murmurs UPPER EXTREMITIES: 2+ pulses, warm, well-perfused. LOWER EXTREMITIES: 2+ pulses, warm, well-perfused. No calf tenderness. No peripheral edema. Lt foot, shows 8mm ulceration on plantar aspect over 2nd metatarsal, no erythema serous drainage. NEUROLOGICAL: Normal speech, gait not observed. PSYCH: Cooperative. Good eye contact. Appropriate mood and affect. SKIN: Warm, dry, normal turgor, no rashes or lesions noted. Vital Signs Temperature 98.4 F 10/07/18 06:00 Pulse Rate 53 L 10/07/18 06:00 Respiratory Rate 20 10/07/18 06:00 Blood Pressure 114/59 L 10/07/18 06:00 O2 Sat by Pulse Oximetry (%) 96 10/06/18 21:00 Lab Results WBC 6.3 K/mm3 (4.0-10.0) 10/06/18 08:05 RBC 2.45 M/mm3 (4.00-5.60) L 10/06/18 08:05 Hgb 8.1 GM/dL (11.7-16.9) L 10/06/18 08:05 Hct 24.4 % (35.4-49) L 10/06/18 08:05 MCV 99.2 fl (80-96) H 10/06/18 08:05 MCHC 33.1 g/dl (32.0-35.9) 10/06/18 08:05 RDW 14.4 % (11.9-15.9) 10/06/18 08:05 Plt Count 176 K/MM3 (134-434) 10/06/18 08:05 Sodium 133 mmol/L (136-145) L 10/06/18 08:05 Potassium 3.9 mmol/L (3.5-5.1) 10/06/18 08:05 Chloride 100 mmol/L (98-107) 10/06/18 08:05 Carbon Dioxide 27 mmol/L (21-32) 10/06/18 08:05 Anion Gap 6 MMOL/L (8-16) L 10/06/18 08:05 BUN 3 mg/dL (7-18) L 10/06/18 08:05 Creatinine 0.9 mg/dL (0.55-1.3) 10/06/18 08:05 Random Glucose 140 mg/dL (74-106) H 10/06/18 08:05 Calcium 8.0 mg/dL (8.5-10.1) L 10/06/18 08:05 Blood Type O POSITIVE 10/02/18 21:30 Antibody Screen Negative 10/02/18 21:30 INR 1.65 (0.83-1.09) H 10/03/18 06:00 Problem List - Problems (1) Diabetic foot ulcer Assessment/Plan: Plan -no signs of vascular insufficiency no surgical intervention at this time -wound care with silvadene, -recommend podiatry consult -MRI noted osteomyolitis, ID recommendations appreciated. Code(s): E11.621 - TYPE 2 DIABETES MELLITUS WITH FOOT ULCER; L97.509 - NON- PRESSURE CHRONIC ULCER OTH PRT UNSP FOOT W UNSP SEVERITY
[2018-10-07] MEDS ORDERED: PICC LINE 8 ML FLUSH PROTOCOL IVPUSH PRN (09:35)
--- NOTE | 2018-10-07 09:35 | PN ---
Progress Note, Physician Chief Complaint: Feels better History of Present Illness: Dr Molina,s surgical consult appreciated Advised no surgery - Current Medication List Current Medications: Active Medications Acetaminophen (Tylenol -) 650 mg PO Q6H PRN PRN Reason: PAIN LEVEL 1-5 Last Admin: 10/07/18 06:28 Dose: 650 mg Enoxaparin Sodium (Lovenox -) 40 mg SQ DAILY [facility] Last Admin: 10/06/18 10:02 Dose: 40 mg Folic Acid (Folic Acid -) 1 mg PO DAILY [facility] Last Admin: 10/06/18 10:01 Dose: 1 mg Vancomycin HCl (Vancomycin (Pre-Docked)) 1,000 mg in 250 mls @ 166.667 mls/hr IVPB BID@0000,1200 [facility]; Protocol Last Admin: 10/07/18 00:10 Dose: 166.667 mls/hr Piperacillin Sod/Tazobactam (Sod 3.375 gm/ Dextrose) 50 mls @ 100 mls/hr IVPB Q8H-IV [facility]; Protocol Last Admin: 10/07/18 01:37 Dose: 100 mls/hr Insulin Aspart (Novolog Vial Sliding Scale -) 1 vial SQ ACHS [facility]; Protocol Last Admin: 10/07/18 06:42 Dose: 4 unit Levetiracetam (Keppra -) 500 mg PO BID [facility] Last Admin: 10/06/18 22:42 Dose: 500 mg Magnesium Oxide (Mag-Ox -) 400 mg PO BID [facility] Last Admin: 10/06/18 22:42 Dose: 400 mg Melatonin (Melatonin) 10 mg PO HS PRN PRN Reason: INSOMNIA Last Admin: 10/03/18 04:57 Dose: 10 mg Oxycodone HCl (Roxicodone -) 5 mg PO Q8H PRN PRN Reason: PAIN LEVEL 6-10 Last Admin: 10/07/18 06:27 Dose: 5 mg Pantoprazole Sodium (Protonix -) 40 mg PO DAILY [facility] Last Admin: 10/06/18 10:01 Dose: 40 mg Potassium Chloride (K-Dur -) 20 meq PO BID [facility] Last Admin: 10/06/18 22:42 Dose: 20 meq Zolpidem Tartrate (Ambien -) 10 mg PO HS PRN PRN Reason: INSOMNIA Last Admin: 10/06/18 22:42 Dose: 10 mg - Objective Vital Signs: Vital Signs Temperature 98.4 F 10/07/18 06:00 Pulse Rate 53 L 10/07/18 06:00 Respiratory Rate 20 10/07/18 06:00 Blood Pressure 114/59 L 10/07/18 06:00 O2 Sat by Pulse Oximetry (%) 96 10/06/18 21:00 Constitutional: Yes: No Distress Eyes: Yes: WNL HENT: Yes: WNL Neck: Yes: WNL Cardiovascular: Yes: WNL Respiratory: Yes: WNL Gastrointestinal: Yes: Normal Bowel Sounds ...Rectal Exam: Yes: WNL, Deferred Genitourinary: Yes: WNL Breast(s): Yes: WNL Musculoskeletal: Yes: WNL Wound/Incision: Yes: Clean/Dry Neurological: Yes: Alert Labs: CBC, BMP 10/06/18 08:05 10/06/18 08:05 INR, PTT INR 1.65 (0.83-1.09) H 10/03/18 06:00 Assessment/Plan Picc line insertion Discussed with drug abuse social worker regarding SNF
[2018-10-07] MEDS ORDERED: PT OWN MED DRAWER 7, Y5N ONE (09:49)
[2018-10-07] MEDS: levETIRAcetam 500 MG TABLET (FP) PO SCH ×2 (09:52→22:33)
[2018-10-07] MEDS: MAGNESIUM OXIDE 400 MG TABLET (FP) PO SCH ×2 (09:52→22:34)
[2018-10-07] MEDS: POTASSIUM CHLORIDE TABS 20 MEQ TABLET.ER (FP) PO SCH ×2 (09:52→22:33)
[2018-10-07] MEDS: PANTOPRAZOLE 40 MG TABLET (FP) PO SCH (09:52)
[2018-10-07] MEDS: FOLIC ACID 1 MG TABLET (FP) PO SCH (09:52)
[2018-10-07] MEDS: ENOXAPARIN NA (PORCINE) 40 MG/0.4 ML DISP.SYRIN SQ SCH (09:52)
[2018-10-07] MEDS ORDERED: INSULIN (NOVOLOG) ASPART 100 UNITS/ML 10ML VIAL ONE (11:45)
--- NOTE | 2018-10-07 11:55 | PN ---
Progress Note (short form) - Note Progress Note: patient without complaints Vital Signs Period Temp Pulse Resp BP Sys/Ren Pulse Ox Last 24 Hr 97.6 F-98.4 F 53-89 18-22 92-120/57-71 96-98 foot without swelling erythema resolved open plantar ulcer- less drainage CBC, BMP 10/06/18 08:05 10/06/18 08:05 Laboratory Tests 10/04/18 10/04/18 06:30 06:30 ESR 82 H C-Reactive Protein 3.7 H Microbiology 10/02/18 21:30 Blood - Peripheral Venous Blood Culture - Preliminary NO GROWTH OBTAINED AFTER 96 HOURS, INCUBATION TO CONTINUE FOR 1 DAYS. 10/02/18 21:30 Blood - Peripheral Venous Blood Culture - Preliminary NO GROWTH OBTAINED AFTER 96 HOURS, INCUBATION TO CONTINUE FOR 1 DAYS. 10/02/18 21:10 Foot - Left Gram Stain - Final 10/02/18 21:10 Foot - Left Wound Culture - Final S Aureus Enterococcus Faecalis Klebsiella Oxytoca MRI- +fluid collection, ?foreign body, +osteo Current Medications Acetaminophen (Tylenol -) 650 mg PO Q6H PRN PRN Reason: PAIN LEVEL 1-5 Last Admin: 10/07/18 06:28 Dose: 650 mg Enoxaparin Sodium (Lovenox -) 40 mg SQ DAILY [facility] Last Admin: 10/07/18 09:52 Dose: 40 mg Folic Acid (Folic Acid -) 1 mg PO DAILY [facility] Last Admin: 10/07/18 09:52 Dose: 1 mg IV Flush (Picc Line Flush) 8 ml IVPUSH PRN PRN PRN Reason: Protocol Vancomycin HCl (Vancomycin (Pre-Docked)) 1,000 mg in 250 mls @ 166.667 mls/hr IVPB BID@0000,1200 [facility]; Protocol Last Admin: 10/07/18 11:50 Dose: 166.667 mls/hr Piperacillin Sod/Tazobactam (Sod 3.375 gm/ Dextrose) 50 mls @ 100 mls/hr IVPB Q8H-IV [facility]; Protocol Last Admin: 10/07/18 09:52 Dose: 100 mls/hr Insulin Aspart (Novolog Vial Sliding Scale -) 1 vial SQ ACHS [facility]; Protocol Last Admin: 10/07/18 11:51 Dose: 8 unit Levetiracetam (Keppra -) 500 mg PO BID [facility] Last Admin: 10/07/18 09:52 Dose: 500 mg Magnesium Oxide (Mag-Ox -) 400 mg PO BID [facility] Last Admin: 10/07/18 09:52 Dose: 400 mg Melatonin (Melatonin) 10 mg PO HS PRN PRN Reason: INSOMNIA Last Admin: 10/03/18 04:57 Dose: 10 mg Oxycodone HCl (Roxicodone -) 5 mg PO Q8H PRN PRN Reason: PAIN LEVEL 6-10 Last Admin: 10/07/18 06:27 Dose: 5 mg Pantoprazole Sodium (Protonix -) 40 mg PO DAILY [facility] Last Admin: 10/07/18 09:52 Dose: 40 mg Potassium Chloride (K-Dur -) 20 meq PO BID [facility] Last Admin: 10/07/18 09:52 Dose: 20 meq Zolpidem Tartrate (Ambien -) 10 mg PO HS PRN PRN Reason: INSOMNIA Last Admin: 10/06/18 22:42 Dose: 10 mg a/p diabetic foot infection-much improved- erythema resolved osteomyelitis would suggest podiatry evaluation d/w Dr Mac who is agreeble check vancomycin trough can switch zosyn to ceftriaxone with plans for 6 weeks vancomycin and ceftriaxone Problem List - Problems (1) Diabetic foot ulcer Code(s): E11.621 - TYPE 2 DIABETES MELLITUS WITH FOOT ULCER; L97.509 - NON- PRESSURE CHRONIC ULCER OTH PRT UNSP FOOT W UNSP SEVERITY (2) Anemia Code(s): D64.9 - ANEMIA, UNSPECIFIED
[2018-10-07] MEDS ORDERED: DEXTROSE 5%-WATER 100 ML IVPB ONE (13:19)
[2018-10-07] MEDS: CEFTRIAXONE 2 GM in DEXTROSE 5%-WATER 100 ML IVPB SCH (14:02)
[2018-10-07] MEDS ORDERED: NAPROXEN 500 MG TABLET (FP) PO ONE (20:45)
[2018-10-08] MEDS: VANCOMYCIN 1 GRAM (PRE-DOCKED) 1,000 MG/250 ML BAG IVPB SCH ×2 (00:28→13:16)
[2018-10-08] MEDS: ZOLPIDEM TARTRATE 5 MG TABLET PO PRN (01:37)
[2018-10-08] MEDS: INSULIN SLIDING SCALE (NOVOLOG) 1 VIAL SQ SCH ×2 (06:34→12:10)
--- NOTE | 2018-10-08 09:30 | PN ---
Progress Note, Physician Chief Complaint: No new complaints History of Present Illness: Awaiting podiatry consult Picc line insertion - Current Medication List Current Medications: Active Medications Acetaminophen (Tylenol -) 650 mg PO Q6H PRN PRN Reason: PAIN LEVEL 1-5 Last Admin: 10/07/18 12:01 Dose: 650 mg Enoxaparin Sodium (Lovenox -) 40 mg SQ DAILY [facility] Last Admin: 10/07/18 09:52 Dose: 40 mg Folic Acid (Folic Acid -) 1 mg PO DAILY [facility] Last Admin: 10/07/18 09:52 Dose: 1 mg IV Flush (Picc Line Flush) 8 ml IVPUSH PRN PRN PRN Reason: Protocol Vancomycin HCl (Vancomycin (Pre-Docked)) 1,000 mg in 250 mls @ 166.667 mls/hr IVPB BID@0000,1200 [facility]; Protocol Last Admin: 10/08/18 00:28 Dose: 166.667 mls/hr Ceftriaxone Sodium 2 gm/ (Dextrose) 100 mls @ 200 mls/hr IVPB DAILY [facility]; Protocol Last Admin: 10/07/18 14:02 Dose: 200 mls/hr Insulin Aspart (Novolog Vial Sliding Scale -) 1 vial SQ ACHS [facility]; Protocol Last Admin: 10/08/18 06:34 Dose: 8 unit Levetiracetam (Keppra -) 500 mg PO BID [facility] Last Admin: 10/07/18 22:33 Dose: 500 mg Magnesium Oxide (Mag-Ox -) 400 mg PO BID [facility] Last Admin: 10/07/18 22:34 Dose: 400 mg Melatonin (Melatonin) 10 mg PO HS PRN PRN Reason: INSOMNIA Last Admin: 10/03/18 04:57 Dose: 10 mg Oxycodone HCl (Roxicodone -) 5 mg PO Q8H PRN PRN Reason: PAIN LEVEL 6-10 Last Admin: 10/07/18 22:33 Dose: 5 mg Pantoprazole Sodium (Protonix -) 40 mg PO DAILY [facility] Last Admin: 10/07/18 09:52 Dose: 40 mg Potassium Chloride (K-Dur -) 20 meq PO BID [facility] Last Admin: 10/07/18 22:33 Dose: 20 meq Zolpidem Tartrate (Ambien -) 10 mg PO HS PRN PRN Reason: INSOMNIA Last Admin: 10/08/18 01:37 Dose: 10 mg - Objective Vital Signs: Vital Signs Temperature 98.2 F 10/08/18 06:00 Pulse Rate 71 10/08/18 06:00 Respiratory Rate 18 10/08/18 06:00 Blood Pressure 119/66 10/08/18 06:00 O2 Sat by Pulse Oximetry (%) 98 10/07/18 21:00 Constitutional: Yes: No Distress Eyes: Yes: WNL HENT: Yes: WNL Neck: Yes: WNL Cardiovascular: Yes: WNL Respiratory: Yes: WNL Gastrointestinal: Yes: WNL ...Rectal Exam: Yes: Deferred Breast(s): Yes: WNL Wound/Incision: Yes: Clean/Dry Labs: CBC, BMP 10/06/18 08:05 10/06/18 08:05 INR, PTT INR 1.65 (0.83-1.09) H 10/03/18 06:00 Assessment/Plan Picc line insertion today
--- NOTE | 2018-10-08 09:45 | CONSULT ---
Consult - text type - Consultation Consultation Note: Podiatry Consultation: 52 year old diabetic M presents with L foot cellulitis. Patient has had a history of the wound for quite some time, was last hospitalized for the ulcer in March. Patient was discharged to [facility] for IV abx therapy. Notes increased redness to the foot over the past week and notes a blister popped on the top of the foot. Currently afebrile, VSS. PMHx: DM, HTN, seizure disorder, ETOH abuse Meds: noted ALL: NKMA DAVON: L foot: pedal pulses palpable, TG wnl, CFT brisk to all toes. There is a sub- second metatarsal diabetic ulcer with strong granular base, hyperkeratotic borders, no probing to bone, no purulence, no fluctuance, no streaking cellulitis, no signs of active infection. There is a dorsal second interspace small ulcer with serosanguinous drainage, mild periwound erythema, no streaking cellulitis, no soft tissue crepitus, no tenderness to palpation. WBC: 6.3 ESR: 82 Wound Cx: MRSA, enterococcus, klebsiella MRI: (+) osteomyelitis with possible fluid collection Imp: 52 year old DM M with L foot diabetic infection, osteomyelitis 1. IV abx per infectious disease. Reviewed MRI, it looks like the fluid collection seems to be rectifying with the open wound at the dorsal second interspace. There are no acute signs of infection currently. Agree with IV abx therapy x 6 weeks for treatment of osteomyelitis. 2. Wound benefit from SNF placement. Needs local wound care with iodoform 1/4" packing to dorsal 2nd interspace wound and silver alginate to plantar wound changed 3x/week. 3. Discussed appropriate glycemic management and offloading measures. Needs surgical shoe. 4. Needs follow up upon discharged in wound healing center. [phone]. Thank you for the courtesy of this consultation. Jose Lagos DPM
[2018-10-08] MEDS ORDERED: DEXTROSE 5%-WATER 100 ML IVPB ONE (11:53)
[2018-10-08] MEDS ORDERED: INSULIN (NOVOLOG) ASPART 100 UNITS/ML 10ML VIAL ONE (11:55)
[2018-10-08] MEDS: ENOXAPARIN NA (PORCINE) 40 MG/0.4 ML DISP.SYRIN SQ SCH (12:06)
[2018-10-08] MEDS: levETIRAcetam 500 MG TABLET (FP) PO SCH (12:06)
[2018-10-08] MEDS: PANTOPRAZOLE 40 MG TABLET (FP) PO SCH (12:06)
[2018-10-08] MEDS: POTASSIUM CHLORIDE TABS 20 MEQ TABLET.ER (FP) PO SCH (12:06)
[2018-10-08] MEDS: FOLIC ACID 1 MG TABLET (FP) PO SCH (12:06)
[2018-10-08] MEDS: MAGNESIUM OXIDE 400 MG TABLET (FP) PO SCH (12:06)
[2018-10-08] MEDS: CEFTRIAXONE 2 GM in DEXTROSE 5%-WATER 100 ML IVPB SCH (12:06)
[2018-10-08] MEDS: ACETAMINOPHEN 325 MG TABLET (FP) PO PRN (12:31)
[2018-10-08] MEDS: oxyCODONE HCL 5 MG TABLET PO PRN (12:32)
[2018-10-08 14:58] VITALS: BP 110/64; PULSE 69; TEMP 98.2
[2018-10-15 14:18] LABS: HEP B CORE AB, TOT Negative
[2018-10-15 14:19] LABS: HEP A AB, IGM Negative
[2018-10-15 14:20] LABS: HBSAG SCREEN Negative
== END 2018-10-08 16:59 | DRG 344 ==
LOC: JER 20:24 → JERBED 10-03 00:01 → J5S 10-03 04:22
PROVIDERS: ADMIT Internal Medicine; ATTEND Internal Medicine
PROC: 02HV33Z Insertion of Infusion Device into Superior Vena Cava, Percutaneous Approach (ICD-10-PCS; principal; 2018-10-08)
DX: E11.69 Type 2 diabetes mellitus with other specified complication (principal); E11.621 Type 2 diabetes mellitus with foot ulcer; L97.528 Non-pressure chronic ulcer of other part of left foot with other specified severity; F19.10 Other psychoactive substance abuse, uncomplicated; E88.09 Other disorders of plasma-protein metabolism, not elsewhere classified; M86.9 Osteomyelitis, unspecified; L03.116 Cellulitis of left lower limb; G40.909 Epilepsy, unspecified, not intractable, without status epilepticus; E11.40 Type 2 diabetes mellitus with diabetic neuropathy, unspecified; D64.9 Anemia, unspecified; D69.6 Thrombocytopenia, unspecified; B95.62 Methicillin resistant Staphylococcus aureus infection as the cause of diseases classified elsewhere; F10.10 Alcohol abuse, uncomplicated; F17.210 Nicotine dependence, cigarettes, uncomplicated; E87.2 Acidosis; F41.8 Other specified anxiety disorders; Z79.4 Long term (current) use of insulin
CPT/HCPCS: 36415; 36569; 73630-TC-LT; 73722-LT; 77001-TC-FY; 78315-TC; 80048; 80053; 80177; 82607; 82728; 82746; 82962; 83036; 83540; 83550; 83605; 83735; 84100; 84466; 85025; 85027; 85610; 85651; 85730; 86140; 86704; 86706; 86708; 86803; 86850; 86900; 86901; 87040; 87070; 87186; 87205; 87340; 87389; 90688; 97116-GP; 97161-GP; 99284-25; A9503; C1751; G0008; G0480; J7030

== ENCOUNTER 2018-10-30 21:08 | Emergency (ER) | payer OTHER ==
[2018-10-30 21:56] VITALS: BMI 22.0
--- NOTE | 2018-10-30 22:10 | PDOC ---
History of Present Illness - General History Source: Patient, Jail Records Exam Limitations: No Limitations - History of Present Illness Initial Comments: 10/30/18 22:25 The patient is a 52 year old male with a past medical history of alcohol abuse, insulin dependent diabetes (with foot neuropathy), and seizures here today for evaluation of s/p seizure coming from [facility]. The patient was unable to recall what happened today but reports that he has had 2 episodes of seizures in the past with one lasting for 3 days. He notes he was previously seen at [place] for a foot infection. He also notes having a tremor for about a week. Patient denies headache, lightheadedness. Denies fever, chills. Denies chest pain, shortness of breath. Denies nausea, vomiting, diarrhea, abdominal pain. Denies lower extremity edema. Allergies: NKA Social history: Patient reports prior alcohol abuse but states he has since stopped. Surgical history: bassem placed left tibia () PCP: none <Heriberto Rico - Last Filed: 10/30/18 22:27> <Bennett Oliver - Last Filed: 10/31/18 02:53> <Alfreda Morton - Last Filed: 11/01/18 00:32> - General Chief Complaint: Seizure Stated Complaint: SEIZURE Time Seen by Provider: 10/30/18 22:10 Past History <Heriberto Rico - Last Filed: 10/30/18 22:27> <Bennett Oliver - Last Filed: 10/31/18 02:53> - Past Medical History Anemia: No Asthma: No Cancer: No Cardiac Disorders: No CVA: No COPD: No CHF: No Dementia: No Diabetes: Yes GI Disorders: No Disorders: No HTN: No Hypercholesterolemia: No Liver Disease: No Seizures: Yes Thyroid Disease: No - Surgical History Abdominal Surgery: No Appendectomy: No Cardiac Surgery: No Cholecystectomy: No Lung Surgery: Yes Neurologic Surgery: No Orthopedic Surgery: No - Immunization History Immunization Up to Date: Yes - Suicide/Smoking/Psychosocial Hx Smoking Status: Yes Smoking History: Never smoked Have you smoked in the past 12 months: No Number of Cigarettes Smoked Daily: 6 Information on smoking cessation initiated: No 'Breaking Loose' booklet given: 05/03/14 Hx Alcohol Use: No Drug/Substance Use Hx: No Substance Use Type: None Hx Substance Use Treatment: No <Alfreda Morton - Last Filed: 11/01/18 00:32> - Past Medical History Allergies/Adverse Reactions: Allergies Allergy/AdvReac Type Severity Reaction Status Date / Time No Known Allergies Allergy Verified 10/30/18 21:56 Home Medications: Ambulatory Orders Acetaminophen [Tylenol .Regular Strength -] 650 mg PO Q6H PRN tablet 10/08/18 Ceftriaxone [Rocephin -] 2 gm IVPB DAILY vial 10/08/18 Folic Acid - 1 mg PO DAILY tablet 10/08/18 Insulin Sliding Scale [Novolog Vial Sliding Scale -] 1 vial SQ ACHS units 10/08 Pantoprazole Sodium [Protonix -] 40 mg PO DAILY tablet.ec 10/08/18 Picc Line Flush [Picc Line Flush -] 8 ml IVPUSH PRN PRN ml 10/08/18 Vancomycin/0.9 % Sod Chloride [Vanco 1 Gram/250 ml-0.9% NaCl] 1 gm IV BID #84 plast..bag 10/08/18 Zolpidem Tartrate [Ambien] 10 mg PO HS PRN tablet MDD 1 10/08/18 levETIRAcetam [Keppra -] 500 mg PO BID tablet 10/08/18 oxyCODONE HCL [Roxicodone -] 5 mg PO Q8H PRN tablet MDD 3 10/08/18 Review of Systems - Review of Systems Able to Perform ROS?: Yes Comments:: 10/30/18 22:25 GENERAL/CONSTITUTIONAL: No fever or chills. No weakness. HEAD, EYES, EARS, NOSE AND THROAT: No change in vision. No ear pain or discharge. No sore throat. GASTROINTESTINAL: No nausea, vomiting, diarrhea or constipation. GENITOURINARY: No dysuria, frequency, or change in urination. CARDIOVASCULAR: No chest pain or shortness of breath. RESPIRATORY: No cough, wheezing, or hemoptysis. MUSCULOSKELETAL: No joint or muscle swelling or pain. No neck or back pain. SKIN: No rash NEUROLOGIC: +tremor. +seizure. No headache, vertigo, loss of consciousness, or change in strength/sensation. ENDOCRINE: No increased thirst. No abnormal weight change. HEMATOLOGIC/LYMPHATIC: No anemia, easy bleeding, or history of blood clots. ALLERGIC/IMMUNOLOGIC: No hives or skin allergy. <Heriberto Rico - Last Filed: 10/30/18 22:27> *Physical Exam - Vital Signs Last Vital Signs Temp Pulse Resp BP Pulse Ox 98.4 F 107 H 19 135/75 97 10/30/18 21:08 10/30/18 21:08 10/30/18 21:08 10/30/18 21:08 10/30/18 21:08 - Physical Exam Comments: 10/30/18 22:27 Constitutional: Awake, alert, oriented. No acute distress. Head: Normocephalic. Atraumatic Eyes: PERRL. EOMI. Conjunctivae are not pale. ENT: Mucous membranes are moist and intact. Posterior pharynx without exudates or erythema. Uvula midline. Neck: Supple. Full ROM. No lymphadenopathy. Cardiovascular: Regular rate. Regular rhythm. S1, S2 regular. Distal pulses are 2+ and symmetric. Pulmonary/Chest: No evidence of respiratory distress. Clear to auscultation bilaterally No wheezing, rales or rhonchi. Abdominal: Soft and non-distended. There is no tenderness. No rebound, guarding or rigidity. No organomegaly. No palpable masses. Good bowel sounds. Back: No CVA tenderness. Musculoskeletal: No edema. No cyanosis. No clubbing. Full range of motion in all extremities. Nocalf tenderness. Radial/pedal pulses are intact and 2+ bilaterally Skin: Skin is warm and dry. No petechiae. No purpura. Neurological: +hand tremors. +poor historian. +flat affect. Alert and oriented to person, place, and time. Cranial nerves II-XII are grossly intact. Normal speech. Strength is grossly symmetric. No sensory deficits. Psychiatric: Good eye contact. Normal interaction, affect and behavior. <Heriberto Rico - Last Filed: 10/30/18 22:27> - Vital Signs Last Vital Signs Temp Pulse Resp BP Pulse Ox 98.0 F 85 16 136/77 100 10/30/18 23:49 10/30/18 23:49 10/30/18 23:49 10/30/18 23:49 10/30/18 23:49 <Bennett Oliver - Last Filed: 10/31/18 02:53> - Vital Signs Last Vital Signs Temp Pulse Resp BP Pulse Ox 98.4 F 107 H 19 135/75 97 10/30/18 21:08 10/30/18 21:08 10/30/18 21:08 10/30/18 21:08 10/30/18 21:08 <Alfreda Morton - Last Filed: 11/01/18 00:32> Moderate Sedation - Procedure Monitoring Vital Signs: Procedure Monitoring Vital Signs Temperature 98.4 F 10/30/18 21:08 Pulse Rate 107 H 10/30/18 21:08 Respiratory Rate 19 10/30/18 21:08 Blood Pressure 135/75 10/30/18 21:08 O2 Sat by Pulse Oximetry (%) 97 10/30/18 21:08 <Heriberto Rico - Last Filed: 10/30/18 22:27> - Procedure Monitoring Vital Signs: Procedure Monitoring Vital Signs Temperature 98.0 F 10/30/18 23:49 Pulse Rate 85 10/30/18 23:49 Respiratory Rate 16 10/30/18 23:49 Blood Pressure 136/77 10/30/18 23:49 O2 Sat by Pulse Oximetry (%) 100 10/30/18 23:49 <Bennett Oliver - Last Filed: 10/31/18 02:53> - Procedure Monitoring Vital Signs: Procedure Monitoring Vital Signs Temperature 98.4 F 10/30/18 21:08 Pulse Rate 107 H 10/30/18 21:08 Respiratory Rate 19 10/30/18 21:08 Blood Pressure 135/75 10/30/18 21:08 O2 Sat by Pulse Oximetry (%) 97 10/30/18 21:08 <Alfreda Morton - Last Filed: 11/01/18 00:32> ED Treatment Course - LABORATORY CBC & Chemistry Diagram: 10/30/18 22:55 10/30/18 23:04 - ADDITIONAL ORDERS Additional order review: Laboratory Results 10/31/18 10/31/18 10/30/18 01:36 01:05 23:58 Sodium Potassium Chloride Carbon Dioxide Anion Gap BUN Creatinine Creat Clearance w eGFR POC Glucometer 164.69721 Random Glucose Lactic Acid 1.5 Calcium Total Bilirubin AST ALT Alkaline Phosphatase Total Protein Albumin Urine Color Ltyellow Urine Appearance Clear Urine pH 6.0 Ur Specific [place] 1.014 Urine Protein Negative Urine Glucose (UA) 1+ H Urine Ketones Negative Urine Blood Negative Urine Nitrite Negative Urine Bilirubin Negative Urine Urobilinogen Negative Ur Leukocyte Esterase Negative 10/30/18 10/30/18 23:04 23:04 Sodium 136 Potassium 3.8 Chloride 104 Carbon Dioxide 26 Anion Gap 6 L BUN 8 Creatinine 1.0 Creat Clearance w eGFR > 60 POC Glucometer Random Glucose 49 L* Lactic Acid 2.2 H* Calcium 8.6 Total Bilirubin 0.2 AST 32 ALT 23 Alkaline Phosphatase 80 Total Protein 7.1 Albumin 3.0 L Urine Color Urine Appearance Urine pH Ur Specific [place] Urine Protein Urine Glucose (UA) Urine Ketones Urine Blood Urine Nitrite Urine Bilirubin Urine Urobilinogen Ur Leukocyte Esterase 10/30/18 10/30/18 23:58 22:55 RBC 2.85 L MCV 96.3 H MCHC 35.4 RDW 13.9 MPV 7.6 Neutrophils % 54.6 D Lymphocytes % 32.7 D Monocytes % 10.7 H Eosinophils % 1.3 Basophils % 0.7 POC Glucometer 164.03781 - Medications Given in the ED: ED Medications Discontinued Medications Generic Name Dose Route Start Last Admin Trade Name Tra PRN Reason Stop Dose Admin Acetaminophen 975 mg 10/30/18 23:27 10/30/18 23:48 Tylenol - PO 10/30/18 23:28 975 mg ONCE ONE Administration Levetiracetam 1,000 mg 10/30/18 22:24 10/30/18 23:00 Keppra Injection - IVPB 10/30/18 22:25 1,000 mg ONCE ONE Administration Oxycodone HCl 5 mg 10/30/18 23:26 10/30/18 23:47 Roxicodone - PO 10/30/18 23:27 5 mg ONCE ONE Administration Sodium Chloride 1,000 ml 10/30/18 22:28 10/30/18 23:00 Normal Saline - IV 10/30/18 22:29 1,000 ml ONCE ONE Administration <Bennett Oliver - Last Filed: 10/31/18 02:53> - LABORATORY CBC & Chemistry Diagram: 10/30/18 22:55 10/30/18 23:04 <Alfreda Morton - Last Filed: 11/01/18 00:32> Medical Decision Making - Medical Decision Making 10/30/18 22:36 a/p: 52yo male presents from [facility] after having a witness seizure tonight at [facility] -pt currently awake, alert, at baseline MS -pt with hx of IDDM -call placed to [facility] who states patient took his nighttime keppra dose at 5p and hasn't missed any doses -pt currently on IV abx - rocephin and vanco for a diabetic foot wound, PICC to RUE -no tongue biting -no loss of control of bowel/bladder -neuro intact -no complaints at this time other than being hungry -will send labs, monitor and iv load keppra -will most likely dc back to [facility] 10/30/18 23:42 patient without seizure activity eating a turkey sandwich in the ED in [facility] c/o a headache and his chronic pain -neuro intact -on oxycodone 5mg q8 will dose in the ED 10/30/18 23:59 glucose 49, ate a turkey sandwich, repeat glucose after eating was 164 10/31/18 01:02 pt ambulated to the bathroom in [facility] will send UA and will redraw lactate 11/01/18 00:32 pt signed out to Dr. Oliver pending repeat lactate <Alfreda Morton - Last Filed: 11/01/18 00:32> *DC/Admit/Observation/Transfer - Attestations Scribe Attestion: 10/30/18 22:26 Documentation prepared by NICOL Arizmendi, acting as medical claims specialist for Alfreda Morton DO. <Heriberto Rico - Last Filed: 10/30/18 22:27> - Discharge Dispostion Decision to Admit order: No <Bennett Oliver - Last Filed: 10/31/18 02:53> - Discharge Dispostion Decision to Admit order: No - Attestations Physician Attestion: 11/01/18 00:32 I, Dr. Alfreda Morton DO, attest that this document has been prepared under my direction and personally reviewed by me in its entirety. I further attest, that it accurately reflects all work, treatment, procedures and medical decision -making performed by me. <Alfreda Morton - Last Filed: 11/01/18 00:32> Diagnosis at time of Disposition: Seizure - Discharge Dispostion Disposition: HOME Condition at time of disposition: Good - Referrals Referrals: Cassidy Mac MD [Primary Care Provider] - - Patient Instructions Printed Discharge Instructions: DI for Seizure Disorder -- Adult
[2018-10-30] MEDS ORDERED: levETIRAcetam 500 MG/5 ML INJECTION VIAL IVPB ONE ×2 (22:24→22:46)
[2018-10-30] MEDS ORDERED: SODIUM CHLORIDE 0.9% 1000 ML INFUS.BAG IV ONE (22:28)
[2018-10-30 23:19] LABS: BASO % 0.7 % (0-2.0); EOS % 1.3 % (0-4.5); HEMATOCRIT 27.5 % (35.4-49); HEMOGLOBIN 9.7 GM/dL (11.7-16.9); LYMPH % 32.7 % (8-40); MCH 34.1 pg (25.7-33.7); MCHC 35.4 g/dl (32.0-35.9); MEAN CELL VOLUME 96.3 fl (80-96); MEAN PLT VOLUME 7.6 fl (7.5-11.1); MONO % 10.7 % (3.8-10.2); NEUT % 54.6 % (42.8-82.8); PLATELET COUNT 243 K/MM3 (134-434); RBC 2.85 M/mm3 (4.00-5.60); RDW 13.9 % (11.9-15.9); WHITE BLOOD COUNT 7.8 K/mm3 (4.0-10.0)
[2018-10-30] MEDS ORDERED: oxyCODONE HCL 5 MG TABLET PO ONE (23:26)
[2018-10-30] MEDS ORDERED: ACETAMINOPHEN 325 MG TABLET (FP) PO ONE (23:27)
[2018-10-30] MEDS ORDERED: oxyCODONE HCL 5 MG TABLET ONE (23:39)
[2018-10-30] MEDS ORDERED: ACETAMINOPHEN 325 MG TABLET (FP) ONE (23:40)
[2018-10-30 23:52] VITALS: BP 136/77; PULSE 85; TEMP 98
[2018-10-30 23:52] LABS: ALK PHOS 80 U/L (45-117); ANION GAP 6 MMOL/L (8-16); BILIRUBIN,TOTAL 0.2 mg/dL (0.2-1); BLOOD UREA NITROGEN 8 mg/dL (7-18); CALCIUM 8.6 mg/dL (8.5-10.1); CHLORIDE 104 mmol/L (98-107); CO2 26 mmol/L (21-32); POTASSIUM 3.8 mmol/L (3.5-5.1); SGOT/AST 32 U/L (15-37); SGPT/ALT 23 U/L (13-61); SODIUM 136 mmol/L (136-145); TOT PROT 7.1 g/dl (6.4-8.2)
[2018-10-30 23:55] LABS: GLUCOSE,RANDOM 49 mg/dL (74-106)
[2018-10-31 01:27] LABS: URINE APPEARANCE CLEAR; URINE BILIRUBIN NEGATIVE (<2.0 mg/dL); URINE COLOR LTYELLOW; URINE GLUCOSE (UA) 1+ (NEGATIVE); URINE KETONE NEGATIVE (NEGATIVE); URINE LEUK ESTERASE NEGATIVE (NEGATIVE); URINE NITRITE NEGATIVE (NEGATIVE); URINE PROTEIN NEGATIVE (NEGATIVE); URINE UROBILINOGEN NEGATIVE mg/dL (0.2-1.0)
== END 2018-10-31 04:10 | disposition home or self-care (01) ==
LOC: JER 21:08
PROC: 3E033GC Introduction of Other Therapeutic Substance into Peripheral Vein, Percutaneous Approach (ICD-10-PCS; principal; 2018-10-30)
DX: G40.909 Epilepsy, unspecified, not intractable, without status epilepticus (principal); E11.40 Type 2 diabetes mellitus with diabetic neuropathy, unspecified; Z79.4 Long term (current) use of insulin; Z79.2 Long term (current) use of antibiotics; Z96.89 Presence of other specified functional implants
CPT/HCPCS: 36415; 80053; 81003; 82962; 83605; 85025; 99284-25; J7030

== ENCOUNTER 2019-02-20 17:39 | Emergency (ER) | payer OTHER ==
[2019-02-20 17:53] VITALS: BP 144/86; PULSE 92; TEMP 98.6; BMI 18.1
[2019-02-20] MEDS ORDERED: CEPHALEXIN MONOHYDRATE 500 MG CAPSULE (UD) PO ONE (20:24)
[2019-02-20] MEDS ORDERED: SULFAMETHOXAZOLE/TRIMETHOPRIM 800MG/160MG D.S. TABLET PO ONE (20:24)
--- NOTE | 2019-02-20 20:32 | PDOC ---
History of Present Illness - General Chief Complaint: Alcohol intoxication Stated Complaint: INTOX Time Seen by Provider: 02/20/19 19:29 History Source: Patient Exam Limitations: No Limitations Past History - Past Medical History Allergies/Adverse Reactions: Allergies Allergy/AdvReac Type Severity Reaction Status Date / Time No Known Allergies Allergy Verified 11/26/18 13:44 Home Medications: Ambulatory Orders Acetaminophen [Tylenol .Regular Strength -] 650 mg PO Q6H PRN tablet 10/08/18 Folic Acid - 1 mg PO DAILY tablet 10/08/18 Insulin Sliding Scale [Novolog Vial Sliding Scale -] 1 vial SQ ACHS units 10/08 Pantoprazole Sodium [Protonix -] 40 mg PO DAILY tablet.ec 10/08/18 levETIRAcetam [Keppra -] 500 mg PO BID tablet 10/08/18 Aspirin 81 mg PO DAILY 11/21/18 Clopidogrel 75 mg PO DAILY 11/21/18 Melatonin 3 mg PO HS 11/21/18 Nephro-Jorge Alberto - 0.8 mg PO DAILY 11/21/18 Sertraline HCl 50 mg PO DAILY 11/21/18 Toprol Xl 150 mg PO DAILY 11/21/18 Ammonium Lactate [Skin Treatment] 400 gm TP BID #120 lotion 01/09/19 Cephalexin [Keflex] 500 mg PO BID #14 capsule 02/20/19 Sulfamethoxazole/Trimethoprim [Bactrim Ds -] 1 tab PO BID #14 tablet 02/20/19 Anemia: No Asthma: No Cancer: No Cardiac Disorders: No CVA: No COPD: No CHF: No Dementia: No Diabetes: Yes GI Disorders: No Disorders: No HTN: No Hypercholesterolemia: No Liver Disease: No Seizures: Yes Thyroid Disease: No Other medical history: alcohol problem - Surgical History Abdominal Surgery: No Appendectomy: No Cardiac Surgery: No Cholecystectomy: No Lung Surgery: Yes Neurologic Surgery: No Orthopedic Surgery: No - Immunization History Immunization Up to Date: Yes - Suicide/Smoking/Psychosocial Hx Smoking Status: Yes Smoking History: Unknown if ever smoked Have you smoked in the past 12 months: No Number of Cigarettes Smoked Daily: 10 Information on smoking cessation initiated: No 'Breaking Loose' booklet given: 05/03/14 Hx Alcohol Use: Yes Drug/Substance Use Hx: No Substance Use Type: None Hx Substance Use Treatment: No *Physical Exam - Vital Signs Last Vital Signs Temp Pulse Resp BP Pulse Ox 98.6 F 92 H 16 144/86 98 02/20/19 17:50 02/20/19 17:50 02/20/19 17:50 02/20/19 17:50 02/20/19 17:50 - Physical Exam General Appearance: No: Apparent Distress HEENT: positive: EOMI, PRAVIN, Pharynx Normal, Other (around 1x1 cm area of induration along L lateral aspect of nose with erythema, no fluctuance, no pustular discharge, no streaking). negative: Nasal Congestion, Rhinorrhea, Sinus Tenderness Respiratory/Chest: positive: Lungs Clear, Normal Breath Sounds. negative: Respiratory Distress Cardiovascular: positive: Regular Rhythm, Regular Rate, S1, S2. negative: Murmur Gastrointestinal/Abdominal: positive: Normal Bowel Sounds, Soft. negative: Tender, Distended, Guarding, Rebound Integumentary: positive: Normal Color Neurologic: positive: Fully Oriented, Alert, Normal Mood/Affect Medical Decision Making - Medical Decision Making 53 y/o M with hx of DM, anemia, alcohol abuse, seizures, insomnia presents with redness along L side of nose x 1 week. Started of as small area of scab, which then progressively got worse. States he was putting Neosporin on it but it was not getting worse. Denies fever. Possible cellulitis Will start on Keflex and Bactrim 02/20/19 20:29 *DC/Admit/Observation/Transfer Diagnosis at time of Disposition: Cellulitis Qualifiers: Site of cellulitis: other site Qualified Code(s): L03.818 - Cellulitis of other sites - Discharge Dispostion Disposition: HOME Condition at time of disposition: Stable Decision to Admit order: No - Prescriptions Prescriptions: Cephalexin [Keflex] 500 mg PO BID #14 capsule Sulfamethoxazole/Trimethoprim [Bactrim Ds -] 1 tab PO BID #14 tablet - Referrals Referrals: Gerald Pritchett MD [Primary Care Provider] - 2 Days - Patient Instructions Printed Discharge Instructions: DI for Cellulitis -- Adult Additional Instructions: Thank you for choosing [facility]. It was a pleasure taking care of you. You were noted to have infection for which you were started on antibiotics - Keflex and Bactrim. Take them as prescribed Can also apply warm compresses to the site Please be sure to follow-up with your doctor in 2 days to see if the infection is starting to improve Return to the Emergency Department if your symptoms worsen or persist, you have fever, increased redness, streaking, pustular discharge or other concerning symptoms. - Post Discharge Activity
--- NOTE | 2019-02-20 20:45 | PDOC ---
*Physical Exam - Vital Signs Last Vital Signs Temp Pulse Resp BP Pulse Ox 98.6 F 92 H 16 144/86 98 02/20/19 17:50 02/20/19 17:50 02/20/19 17:50 02/20/19 17:50 02/20/19 17:50 Medical Decision Making - Medical Decision Making 02/20/19 20:40 Patient state that he had a pimple that he picked that was not improving, now with 1 inch patch of cellulitis, central punctum but no fluctuance Case discussed with NICOLAS Sawyer will trial outpatient antibiotics and close follow up for re-evaluation of infection or progression to abscess Agree with assessment and plan *DC/Admit/Observation/Transfer Diagnosis at time of Disposition: Cellulitis Qualifiers: Site of cellulitis: other site Qualified Code(s): L03.818 - Cellulitis of other sites - Discharge Dispostion Disposition: HOME Condition at time of disposition: Stable - Prescriptions Prescriptions: Cephalexin [Keflex] 500 mg PO BID #14 capsule Sulfamethoxazole/Trimethoprim [Bactrim Ds -] 1 tab PO BID #14 tablet - Referrals Referrals: Gerald Pritchett MD [Primary Care Provider] - 2 Days - Patient Instructions Printed Discharge Instructions: DI for Cellulitis -- Adult Additional Instructions: Thank you for choosing [facility]. It was a pleasure taking care of you. You were noted to have infection for which you were started on antibiotics - Keflex and Bactrim. Take them as prescribed Can also apply warm compresses to the site Please be sure to follow-up with your doctor in 2 days to see if the infection is starting to improve Return to the Emergency Department if your symptoms worsen or persist, you have fever, increased redness, streaking, pustular discharge or other concerning symptoms. - Post Discharge Activity
[2019-02-20] MEDS ORDERED: SULFAMETHOXAZOLE/TRIMETHOPRIM 800MG/160MG D.S. TABLET ONE (20:53)
[2019-02-20] MEDS ORDERED: CEPHALEXIN MONOHYDRATE 500 MG CAPSULE (UD) ONE (20:53)
== END 2019-02-20 20:59 | disposition home or self-care (01) ==
LOC: JER 17:39
DX: L03.211 Cellulitis of face (principal)
CPT/HCPCS: 99281-25

== ENCOUNTER 2019-05-23 10:45 | Inpatient (IN) | payer OTHER ==
[2019-05-23 10:59] VITALS: BMI 18.3
--- NOTE | 2019-05-23 11:02 | PDOC ---
History of Present Illness - General Chief Complaint: Seizure Stated Complaint: SEIZURE Time Seen by Provider: 05/23/19 11:01 - History of Present Illness Initial Comments: 05/23/19 11:42 Harmeet Chairez is a 53yM with PMHx of seizures, diabetes with peripheral neuropathy, alcohol use presenting with seizure. At 10a today, he was resting and watching TV when he felt his throat swell/close and unable to speak. He then started having bilateral upper extremity tremors lasting 2 minutes, all while he's conscious. Episode witnessed by partner. She notes that he is not back to baseline with delayed motor and verbal response. No head trauma. This seizure episode similar to previous episodes. Last seizure 4 months ago. Drinks 2-4 glasses of wine/day, half pack daily smoker. Didn't take keppra last 4 months. No fever, nausea/vomiting, chest or abdominal pain, SOB, urinary or bowel movement changes. Endorses R rib pain after mechanical fall against furniture in dark 2 days ago. Also endorses progressive swelling of L foot with diabetic ulcer for past 2d Past History - Past Medical History Allergies/Adverse Reactions: Allergies Allergy/AdvReac Type Severity Reaction Status Date / Time No Known Allergies Allergy Verified 05/23/19 10:59 Home Medications: Ambulatory Orders Acetaminophen [Tylenol .Regular Strength -] 650 mg PO Q6H PRN tablet 10/08/18 Folic Acid - 1 mg PO DAILY tablet 10/08/18 Insulin Sliding Scale [Novolog Vial Sliding Scale -] 1 vial SQ ACHS units 10/08 Pantoprazole Sodium [Protonix -] 40 mg PO DAILY tablet.ec 10/08/18 levETIRAcetam [Keppra -] 500 mg PO BID tablet 10/08/18 Aspirin 81 mg PO DAILY 11/21/18 Clopidogrel 75 mg PO DAILY 11/21/18 Melatonin 3 mg PO HS 11/21/18 Nephro-Jorge Alberto - 0.8 mg PO DAILY 11/21/18 Sertraline HCl 50 mg PO DAILY 11/21/18 Toprol Xl 150 mg PO DAILY 11/21/18 Ammonium Lactate [Skin Treatment] 400 gm TP BID #120 lotion 01/09/19 Cephalexin [Keflex] 500 mg PO BID #14 capsule 02/20/19 Sulfamethoxazole/Trimethoprim [Bactrim Ds -] 1 tab PO BID #14 tablet 02/20/19 Anemia: No Asthma: No Cancer: No Cardiac Disorders: No CVA: No COPD: No CHF: No Dementia: No Diabetes: Yes GI Disorders: No Disorders: No HTN: No Hypercholesterolemia: No Liver Disease: No Seizures: Yes Thyroid Disease: No - Surgical History Abdominal Surgery: No Appendectomy: No Cardiac Surgery: No Cholecystectomy: No Lung Surgery: Yes Neurologic Surgery: No Orthopedic Surgery: No - Immunization History Immunization Up to Date: Yes - Suicide/Smoking/Psychosocial Hx Smoking Status: Yes Smoking History: Current every day smoker Have you smoked in the past 12 months: No Number of Cigarettes Smoked Daily: 10 Information on smoking cessation initiated: No 'Breaking Loose' booklet given: 05/03/14 Hx Alcohol Use: Yes (daily) Drug/Substance Use Hx: No Substance Use Type: None Hx Substance Use Treatment: No Review of Systems - Review of Systems Constitutional: No: Chills, Fever, Malaise HEENTM: No: Eye Pain, Hearing Loss, Throat Pain Respiratory: No: Cough, Shortness of Breath, Wheezing Cardiac (ROS): No: Chest Pain, Edema, Palpitations, Syncope ABD/GI: No: Abdominal Distended, Nausea, Vomiting : No: Burning, Dysuria, Discharge Musculoskeletal: No: Gout, Joint Pain, Joint Swelling, Muscle Pain Integumentary: No: Bruising, Change in Color, Dryness, Flushing, Lesions Neurological: Yes: Seizure, Tremors. No: Headache, Paresthesia Psychiatric: No: Anxiety, Depression, Sleep Pattern Change Endocrine: No: Excessive Sweating, Flushing, Intolerance to Cold, Intolerance to Heat *Physical Exam - Vital Signs Last Vital Signs Temp Pulse Resp BP Pulse Ox 98.2 F 91 H 16 142/79 98 05/23/19 10:54 05/23/19 10:54 05/23/19 10:54 05/23/19 10:54 05/23/19 10:54 - Physical Exam General Appearance: Yes: Nourished, Appropriately Dressed. No: Apparent Distress HEENT: positive: EOMI, PRAVIN Respiratory/Chest: positive: Lungs Clear, Normal Breath Sounds. negative: Chest Tender, Respiratory Distress, Crackles, Rales, Rhonchi, Stridor, Wheezing Cardiovascular: positive: Regular Rhythm, Regular Rate, S1, S2. negative: Edema , Murmur Gastrointestinal/Abdominal: positive: Normal Bowel Sounds, Tender (epigastric tenderness to palpation), Flat, Soft, Distended, Guarding. 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 negative : Facial Droop, Confused, Disoriented ED Treatment Course - LABORATORY CBC & Chemistry Diagram: 05/23/19 12:10 05/23/19 12:10 Medical Decision Making - Critical Care Time Total Critical Care Time (minutes): 30 Critical Care Statement: The care of this patient involved high complexity decision making to prevent further life threatening deterioration of the patient 's condition and/or to evaluate & treat vital organ system(s) failure or risk of failure. - Medical Decision Making 05/23/19 11:22 ordered cbc, chem, keppra, trop, cxr, ekg, foot xr Given 2 ativan for witnessed partial seizure episode. 2 min. carey arm tremors, aphasia, 2 min post ictal state Hgb 10.4 - baseline, trop negative CMP normal, CXR normal w/o fx foot XR showed tissue swelling, no osteomyelitis ordered head CT Harmeet Chairez is a 53yM with PMHx of seizures, diabetes with peripheral neuropathy, alcohol use presenting with seizure. Witnessed partial seizure episode in ED, given 2 ativan. Neuro intact. Seizure likely due to medication non-compliance and heavy alcohol use. Diabetic foot ulcer with cellulitis, no osteomyelitis on foot XR. Admitted to Dr Mendez med/surg for seizure and diabetic foot ulcer. Pending head CT *DC/Admit/Observation/Transfer Diagnosis at time of Disposition: Seizure Qualifiers: Convulsion type: unspecified Qualified Code(s): R56.9 - Unspecified convulsions Diabetic foot ulcer Qualifiers: Diabetic foot ulcer location: other Diabetes mellitus type: due to underlying condition Laterality: left Non-pressure ulcer stage: limited to breakdown of skin Qualified Code(s): E08.621 - Diabetes mellitus due to underlying condition with foot ulcer - Referrals Referrals: Gerald Pritchett MD [Primary Care Provider] - - Patient Instructions - Post Discharge Activity
[2019-05-23] MEDS ORDERED: SODIUM CHLORIDE 0.9% 500 ML INFUS.BAG IV ONE (11:39)
[2019-05-23] MEDS ORDERED: LORazepam 2 MG/ML SDV VIAL ONE (12:09)
[2019-05-23 12:42] LABS: BASO % 0.9 % (0-2.0); EOS % 1.4 % (0-4.5); HEMATOCRIT 31.2 % (35.4-49); HEMOGLOBIN 10.4 GM/dL (11.7-16.9); LYMPH % 31.6 % (8-40); MCH 33.6 pg (25.7-33.7); MCHC 33.4 g/dl (32.0-35.9); MEAN CELL VOLUME 100.8 fl (80-96); MEAN PLT VOLUME 8.3 fl (7.5-11.1); MONO % 18.7 % (3.8-10.2); NEUT % 47.4 % (42.8-82.8); PLATELET COUNT 168 K/MM3 (134-434); RDW 14.2 % (11.9-15.9); WHITE BLOOD COUNT 6.6 K/mm3 (4.0-10.0)
--- NOTE | 2019-05-23 12:49 | PDOC ---
Documentation entered by Sid Almendarez SCRIBE, acting as scribe for Andres Bowers MD. Andres Bowers MD: This documentation has been prepared by the Erickson blas Joel, SCRIBE, under my direction and personally reviewed by me in its entirety. I confirm that the documentation accurately reflects all work, treatment, procedures, and medical decision making performed by me. Attending Attestation - Resident Resident Name: MikhailCisco - ED Attending Attestation I have performed the following: I have examined & evaluated the patient, The case was reviewed & discussed with the resident, I agree w/resident's findings & plan, Exceptions are as noted - HPI HPI: 05/23/19 12:18 53 M with h/o HTN, DM, seizure d/o, osteomyelitis, presenting to ED with seizure and L foot pain. Pt states that over the past 3 days, he has noticed increased redness and swelling to the L foot. Has a chronic ulcer on the plantar surface that was previously treated. He denies F/C. Today, pt had a seizure while sitting on a couch. Denies headstrike. He states that he has not been taking his keppra for several months. - Physicial Exam PE: 05/23/19 12:27 GENERAL: Awake, alert, and fully oriented, in no acute distress. HEAD: No signs of trauma EYES: PERRLA, EOMI, sclera anicteric, conjunctiva clear ENT: Auricles normal inspection, hearing grossly normal, nares patent, oropharynx clear without exudates. Moist mucosa NECK: Nontender, no stepoffs, Normal ROM, supple, no lymphadenopathy, JVD, or masses LUNGS: Breath sounds equal, clear to auscultation bilaterally. No wheezes, and no crackles HEART: Regular rate and rhythm, normal S1 and S2, no murmurs, rubs or gallops ABDOMEN: Soft, nontender, normoactive bowel sounds. No guarding, no rebound. No masses EXTREMITIES: + L foot with ulcer on plantar surface, no drainage, + erythema and swelling to dorsum of foot NEUROLOGICAL: Cranial nerves II through XII intact. 5/5 strength and sensation in all extremities, Normal speech, normal gait, normal cerebellar function SKIN: Warm, Dry, normal turgor, no rashes or lesions noted. - Medical Decision Making 05/23/19 12:27 53 M with L foot ulcer with worsening redness and swelling. Also with seizure today, possibly 2/2 infection. Pt also has h/o ETOH and substance abuse but does not appear to be actively withdrawing. - Labs - XR foot - Load mumtaz - C/s Dr. Sheldon - C/s neurology
[2019-05-23 13:13] LABS: ALBUMIN 4.1 g/dl (3.4-5.0); ALK PHOS 99 U/L (45-117); ANION GAP 6 MMOL/L (8-16); BILIRUBIN,TOTAL 0.6 mg/dL (0.2-1); BLOOD UREA NITROGEN 24.6 mg/dL (7-18); CALCIUM 9.5 mg/dL (8.5-10.1); CHLORIDE 103 mmol/L (98-107); CO2 27 mmol/L (21-32); CREATININE 0.9 mg/dL (0.55-1.3); GLUCOSE,RANDOM 113 mg/dL (74-106); POTASSIUM 4.3 mmol/L (3.5-5.1); SGOT/AST 66 U/L (15-37); SGPT/ALT 38 U/L (13-61); SODIUM 136 mmol/L (136-145)
--- NOTE | 2019-05-23 16:44 | CONSULT ---
Consult - text type - Consultation Consultation Note: NEUROLOGY CONSULT GREATLY APPRECIATED: Events reviewed and discussed with Dr. Valdivia and Cisco Elizondo, ED Resident. Girlfriend aides in history at bedside. 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 Maintained on: folic acid, insulin, pantoprazole, keppra 500 mg BID, ASA 81, plavix, sertraline 50 mg, bactrim/keflex (for DM foot ulcer). Admitted after brief episode of both hands "shaking" and repetitive vocalizations "like stuttering the same sentence over and over" according to his partner. The patient describes it as "like a panic attack." The episodes last a few minutes. Typical of his seizures. No aura or warning. He reports he is able to voice needs by motioning with his hand, but cannot verbally respond appropriately during this time. His girlfriend reports it takes him about three minutes to respond "like himself " and he usually reports L temporal "throbbing" headaches afterwards. He admits he has been trying to "cut down" the keppra dose because it made him feel "tired" and not himself. He notes since being in ED, he had 3 more episodes witnessed by staff. Dr. Elizondo describes elevation of both arms with slow, rhythmic, shaking. Now S/P Ativan 2 mg IV x 1. Review of systems sig for intermittent tremors in hands, "low blood sugar," which improves when he eats something. He cannot recall if drinking improves the tremor. +FH of seizures in his sister. Patient also notes more recent gait unsteadiness especially walking in the dark and balancing in shower. MCV> 100. BAL< 3.0 LANDON: Cor reg (70's). No bruit. Neck supple. Scatted excoriations to anabaptist, cheeks, nose. Bandages to L foot wound. Poor dentition. NEURO: Awake, alert, responsive. [facility] May 2019. TRUMP CNII-CNXII: EOM's full without Nystagmus. Full moctezuma to confrontation. [id number]. No facial. Gag OK. Motor: No drift. Fine sustention tremor L > R increased by reinforcement. Strength normal. Reflexes normal in arms, but reduced at KJs, absent AJ's. Plantars silent. No cogwheeling. Normal IFEOMA' s. Coordination: No FTN dystaxia. Sensation: Reduced vibration toes. Romberg + Gait: Wide-based, sl shuffle. Can walk on heels, toes. Impression: 1. Non-focal neurological exam sig. for Essential tremor, and 2. Moderate peripheral neuropathy (DM +/- ETOH). 3. Probable Complex Partial seizures with unusual, B/L motor automatisms suggesting a Left frontal onset. This is also c/w obscuration of consciousness AND documented effect on speech. 4. R/O Toxic-metabolic encephalopathy (infection) and ETOH withdrawal. SUGGEST: Await keppra level. Check Mg++, TSH, B12, A1-C Empirically give Levetiracetam bolus (PO or IV) 1000 mg tonight then Increase levetiracetam dose to 750 mg BID and encourage compliance. Observe for signs of ETOH withdrawal (Tachycardia, low grade temps, agitation, etc). Review prior neuro eval. Out patient neurology f/u, EEG and MRI of brain if not previously performed. Thank you very much, Omari Reed MD
--- NOTE | 2019-05-23 17:05 | HP ---
CHIEF COMPLAINT:seizures PCP: HISTORY OF PRESENT ILLNESS: Patient is a 53 year old male with past medical history of seizure disorder, HTN , DM, EtOH abuse, presented to the ED after a witnesses seizure-like activity at home. At around 10am this morning, patient was sitting down when he suddenly called his , he was unable to tell his what he was feeling, but he gestured to his throat and suddenly both arms were shaking. This lasted for about 5 minutes, and patient reported he was aware while it was happening, and he was closing his eyes to try to calm himself down. The shaking resolved on its own. After the episode, patient was having expressive aphasia, speaking few words at a time ad repetitive words. His brought him then to the hospital. At the hospital, ED staff reported another episode of bilateral arm shaking. He received IV Ativan 2mg and the seizures resolved. Patient reported he has not been taking his Keppra at home because he does not like the side effect, and has not been taking it for more than 4 months. Patient also reports his right toe was swollen since yesterday to which he follows up with Dr. San, but denies pain, redness. Patient denies any fever, chills, headache, dizziness, chest pain, SOB, abdominal pain, diarrhea, urinary symptoms. ER course was notable for: (1)Right foot xray: Demineralized osseous structures. No evidence of bony destruction. Second digit soft tissue swelling with radiolucency concerning for infectious process without bony destructive changes. (2) (3) Recent Travel:denies PAST MEDICAL HISTORY: seizure disorder HTN DM EtOH abuse PAST SURGICAL HISTORY: Right leg surgery with placement of rods Social History: Smoking:smokes 1/2 pack per day for >40 years Alcohol:drinks 3-4 glasses of wine daily Drugs: denies Family History:noncontributory Allergies No Known Allergies Allergy (Verified 05/23/19 10:59) HOME MEDICATIONS: Home Medications Medication Instructions Recorded Insulin Sliding Scale [Novolog 1 vial SQ ACHS units 10/08/18 Vial Sliding Scale -] levETIRAcetam [Keppra -] 500 mg PO BID tablet 10/08/18 Ramipril 2.5 mg PO DAILY 05/23/19 Zolpidem Tartrate [Ambien] 10 mg PO HS 07/12/19 REVIEW OF SYSTEMS CONSTITUTIONAL: Absent: fever, chills, diaphoresis, generalized weakness, malaise, loss of appetite, weight change HEENT: Absent: rhinorrhea, nasal congestion, throat pain, throat swelling, difficulty swallowing, mouth swelling, ear pain, eye pain, visual changes CARDIOVASCULAR: Absent: chest pain, syncope, palpitations, irregular heart rate, lightheadedness , peripheral edema RESPIRATORY: Absent: cough, shortness of breath, dyspnea with exertion, orthopnea, wheezing, stridor, hemoptysis GASTROINTESTINAL: Absent: abdominal pain, abdominal distension, nausea, vomiting, diarrhea, constipation, melena, hematochezia GENITOURINARY: Absent: dysuria, frequency, urgency, hesitancy, hematuria, flank pain, genital pain MUSCULOSKELETAL: Absent: myalgia, arthralgia, joint swelling, back pain, neck pain SKIN: Absent: rash, itching, pallor HEMATOLOGIC/IMMUNOLOGIC: Absent: easy bleeding, easy bruising, lymphadenopathy, frequent infections ENDOCRINE: Absent: unexplained weight gain, unexplained weight loss, heat intolerance, cold intolerance NEUROLOGIC: seizure Absent: headache, focal weakness or paresthesias, dizziness, unsteady gait, mental status changes, bladder or bowel incontinence PSYCHIATRIC: Absent: anxiety, depression, suicidal or homicidal ideation, hallucinations. PHYSICAL EXAMINATION Vital Signs - 24 hr 05/23/19 05/23/19 10:54 11:27 Temperature 98.2 F 98.1 F Pulse Rate 91 H Pulse Rate [ 89 Right Radial] Respiratory 16 20 Rate Blood Pressure 142/79 Blood Pressure 140/79 [Left] O2 Sat by Pulse 98 98 Oximetry (%) GENERAL: Awake, alert, and fully oriented, in no acute distress. HEAD: Normal with no signs of trauma. EYES: PERRLA, EOMI, sclera anicteric, conjunctiva clear. EARS, NOSE, THROAT: oropharynx clear without exudates. Moist mucous membranes. NECK: Normal range of motion, supple. LUNGS: Breath sounds equal, clear to auscultation bilaterally. HEART: Regular rate and rhythm, normal S1 and S2 without murmur, rub or gallop. ABDOMEN: Soft, nontender, not distended, normoactive bowel sounds. MUSCULOSKELETAL: Normal range of motion at all joints. UPPER EXTREMITIES: 2+ pulses, warm, well-perfused. No peripheral edema. LOWER EXTREMITIES: 2+ pulses, warm, well-perfused.No peripheral edema. + swelling around the right 2nd toe and wound at the heel, but no tenderness, erythema, warmth or drainage NEUROLOGICAL: AAOX3. Cranial nerves II-XII intact. Normal speech. Motor strength 5/5, sensation intact. No dysmetria. +Romberg's test. PSYCHIATRIC: Cooperative. Good eye contact. SKIN: Warm, dry, normal turgor. Laboratory Results - last 24 hr 05/23/19 05/23/19 05/23/19 12:10 12:10 12:10 WBC 6.6 RBC 3.10 L Hgb 10.4 L Hct 31.2 L MCV 100.8 H MCH 33.6 MCHC 33.4 RDW 14.2 Plt Count 168 D MPV 8.3 Absolute Neuts (auto) 3.1 Neutrophils % 47.4 Lymphocytes % 31.6 Monocytes % 18.7 H Eosinophils % 1.4 Basophils % 0.9 Nucleated RBC % 0 Sodium 136 Potassium 4.3 Chloride 103 Carbon Dioxide 27 Anion Gap 6 L BUN 24.6 H Creatinine 0.9 Est GFR (CKD-EPI)AfAm 111.05 Est GFR (CKD-EPI)NonAf 95.81 Random Glucose 113 H Calcium 9.5 Total Bilirubin 0.6 AST 66 H ALT 38 Alkaline Phosphatase 99 Creatine Kinase 82 Troponin I < 0.02 Total Protein 8.0 Albumin 4.1 Lipase 34 L Alcohol, Quantitative 05/23/19 16:16 WBC RBC Hgb Hct MCV MCH MCHC RDW Plt Count MPV Absolute Neuts (auto) Neutrophils % Lymphocytes % Monocytes % Eosinophils % Basophils % Nucleated RBC % Sodium Potassium Chloride Carbon Dioxide Anion Gap BUN Creatinine Est GFR (CKD-EPI)AfAm Est GFR (CKD-EPI)NonAf Random Glucose Calcium Total Bilirubin AST ALT Alkaline Phosphatase Creatine Kinase Troponin I Total Protein Albumin Lipase Alcohol, Quantitative < 3.0 ASSESSMENT/PLAN: Patient is a 53 year old male with past medical history of seizure disorder, HTN , DM, EtOH abuse, presented to the ED after a witnesses seizure-like activity at home. #Seizure Disorder -likely 2/2 medication noncompliance -Neurology (Dr Reed) consulted. REcommendations appreciated -Keppra level pending -Mg, TSH, B12 HbA1c -Empirically will give Keppra bolus 1000mg tonight -Increase keppra to 750mg BID -To follow up as outpatient. #Right foot swelling -Right foot xray: Demineralized osseous structures. No evidence of bony destruction. Second digit soft tissue swelling with radiolucency -Follows up with Dr. San as outpatient. #Anemia -Hgb baseline -MCV 100.8, macrocytic -Thiamine daily #IDDM -Insulin sliding scale implemented. -BGM ACHS #HTN -Continue Ramipril 2.5mg daily #EtOH abuse -Last intake as per patient was 2 days ago -Alcohol level low -will observe for withdrawal signs #FEN Not on any standing fluids -Electrolytes wnl, routine bmp monitoring -Sodium restricted/diabetic diet #Prophylaxis -Lovenox 40mg sq daily #Disposition -full code -med surg Visit type - Emergency Visit Emergency Visit: Yes ED Registration Date: 05/23/19 Care time: The patient presented to the Emergency Department on the above date and was hospitalized for further evaluation of their emergent condition. - New Patient This patient is new to me today: Yes Date on this admission: 05/23/19 - Critical Care Critical Care patient: No ATTENDING PHYSICIAN STATEMENT I saw and evaluated the patient. I reviewed the resident's note and discussed the case with the resident. I agree with the resident's findings and plan as documented. SUBJECTIVE: OBJECTIVE: ASSESSMENT AND PLAN:
[2019-05-23] MEDS ORDERED: NICOTINE POLACRILEX 4 MG GUM BUC PRN (17:22)
--- NOTE | 2019-05-23 17:56 | PN ---
Teaching Attending Note Name of Resident: Leta Hidalgo ATTENDING PHYSICIAN STATEMENT I saw and evaluated the patient. I reviewed the resident's note and discussed the case with the resident. I agree with the resident's findings and plan as documented. SUBJECTIVE:53yo M with PMH HTN, DM, Continuous nicotine and ETOH abuse and seizure presented to the ER after shaking episode at home. states he can feel when he has a seizure and is able to alert his with hand gestures when its about to happen. had tonic clonic movements of both UE for several minutes then self resolved and took him to the ER. he continued to have 3 more episodes in the ER that was treated with ativan. admits to not taking his keppra for 3 months because he does not like taking it because it makes him tired. last seizure prior to this was earlier this year and last grand mal seizure was over a year ago. 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 denies CP, SOB, fever, chills, N/V/C/D, dysuria, urinary frequency, feeling ill. or sick contacts OBJECTIVE: Last Vital Signs Temp Pulse Resp BP Pulse Ox 99.1 F 89 18 138/78 98 05/23/19 16:45 05/23/19 16:45 05/23/19 16:45 05/23/19 16:45 05/23/19 16:45 General NAD CV S1 S2 RRR no murmur/rub/gallop Lungs CTA B/L no wheezing/rlaes/rhonchi Abdomen soft NT/ND Extremites non pitting edema limited to L foot. hard callous on ball of foot with no active drainage. no fluctance, no warmth or tenderness of the foot Neuro CN II-XII grossly intact, strength and sensation grossly intact all extremities neg pronator drift, negative dysmetria ASSESSMENT AND PLAN: 53yo M with PMH HTN, DM, Continuous nicotine and ETOH abuse and seizure presented to the ER after shaking episode at home. and continued to have 3 more seizures in the hospital 1. Breakthrough seizure- likely due to medication non-compliance. re-start keppra. r/o infection. CXR and UA. neuro consulted. seizure precautions. elevate HOB 2. Foot swelling- does not appear infected. Foot XR negative for cellulitis or OM. can f/u with geothermal powerplant supervisor as outpatient 3. MAcrocytic anemia- Hgb at baseline. no signs of bleeding no indication for transfusion 4. Continuous polysubstance abuse- ETOH level low. agreeable to nicorette gum while hospitalized. counseled on risks of continued tobacco and ETOH use. verbalized undersanding 5. DM- cont iss 6. HTN- cont bharath emedication 7. DVT ppx- lovenox 8. spoke with present at bedside. all questions answered. verbalized understanding and agreement with plan. possible d/c tomorrow if remains seizure free
[2019-05-23] MEDS ORDERED: levETIRAcetam 500 MG TABLET (FP) PO ONE (19:09)
[2019-05-23] MEDS ORDERED: levETIRAcetam 500 MG TABLET (FP) PO SCH (22:00)
[2019-05-23] MEDS ORDERED: ZOLPIDEM TARTRATE 5 MG TABLET PO PRN (22:00)
[2019-05-23] MEDS: INSULIN SLIDING SCALE (NOVOLOG) 1 VIAL SQ SCH (22:39)
[2019-05-23] MEDS: THIAMINE HCL 200 MG/2 ML VIAL IVPB SCH (22:40)
[2019-05-24] MEDS ORDERED: PT OWN MED DRAWER 7, Y5N ONE (05:48)
[2019-05-24] MEDS: INSULIN SLIDING SCALE (NOVOLOG) 1 VIAL SQ SCH ×2 (06:30→11:47)
[2019-05-24] MEDS: THIAMINE HCL 200 MG/2 ML VIAL IVPB SCH (06:30)
[2019-05-24 08:14] LABS: ALBUMIN 3.3 g/dl (3.4-5.0); BILIRUBIN,TOTAL 0.9 mg/dL (0.2-1); BLOOD UREA NITROGEN 15.4 mg/dL (7-18); CALCIUM 8.2 mg/dL (8.5-10.1); CREATININE 0.7 mg/dL (0.55-1.3); MAGNESIUM 1.3 mg/dL (1.8-2.4); PHOSPHOROUS 2.3 mg/dL (2.5-4.9); POTASSIUM 4.2 mmol/L (3.5-5.1); TOT PROT 6.9 g/dl (6.4-8.2)
--- NOTE | 2019-05-24 08:15 | EKG ---
Test Reason : Blood Pressure : / mmHG Vent. Rate : 081 BPM Atrial Rate : 081 BPM P-R Int : 164 ms QRS Dur : 086 ms QT Int : 362 ms P-R-T Axes : 071 059 057 degrees QTc Int : 420 ms NORMAL SINUS RHYTHM NORMAL ECG WHEN COMPARED WITH ECG OF 27-SEP-2018 21:19, NO SIGNIFICANT CHANGE WAS FOUND Confirmed by SKIP MILES MD ([id number]) on 05/24/2019 8:15:12 AM Referred By: Confirmed By:SKIP MILES MD
[2019-05-24 10:00] LABS: BASO % 0.6 % (0-2.0); EOS % 1.5 % (0-4.5); HEMATOCRIT 28.2 % (35.4-49); HEMOGLOBIN 9.4 GM/dL (11.7-16.9); LYMPH % 34.9 % (8-40); MCHC 33.4 g/dl (32.0-35.9); MEAN CELL VOLUME 101.8 fl (80-96); MEAN PLT VOLUME 8.5 fl (7.5-11.1); MONO % 15.9 % (3.8-10.2); NEUT % 47.1 % (42.8-82.8); RBC 2.77 M/mm3 (4.00-5.60); RDW 14.2 % (11.9-15.9); WHITE BLOOD COUNT 5.7 K/mm3 (4.0-10.0)
[2019-05-24] MEDS ORDERED: levETIRAcetam 500 MG TABLET (FP) PO SCH (10:00)
[2019-05-24] MEDS ORDERED: ENOXAPARIN NA (PORCINE) 40 MG/0.4 ML DISP.SYRIN SQ SCH (10:00)
[2019-05-24] MEDS ORDERED: RAMIPRIL 2.5 MG CAPSULE (FP) PO SCH (10:00)
[2019-05-24 10:01] VITALS: BP 123/70; PULSE 74; TEMP 98.4
[2019-05-24] MEDS ORDERED: NAPH,MB-DB/K PH,MBDB POWDER PACKET PO ONE (10:15)
[2019-05-24] MEDS ORDERED: MAGNESIUM OXIDE 400 MG TABLET (FP) PO ONE (10:15)
[2019-05-24 10:18] LABS: PLATELET COUNT 158 K/MM3 (134-434)
--- NOTE | 2019-05-24 10:28 | PN ---
Progress Note (short form) - Note Progress Note: asymptomatic. no repeat seizure like activity. denies CP, SOB, fever, chills, N/ V/C/D Current Medications Generic Name Dose Route Start Last Admin Trade Name Frekrish PRN Reason Stop Dose Admin Enoxaparin Sodium 40 mg 05/24/19 10:00 05/24/19 09:56 Lovenox - SQ 40 mg DAILY AMADA Administration Insulin Aspart 1 vial 05/23/19 22:00 05/24/19 06:30 Novolog Vial Sliding Scale - SQ 2 units ACHS AMADA Administration Protocol Levetiracetam 750 mg 05/24/19 10:00 05/24/19 09:56 Keppra - PO 750 mg BID AMADA Administration Nicotine Polacrilex 4 mg 05/23/19 17:22 Nicorette Gum - BUC Q2H PRN NICOTINE REPLACEMENT RX Ramipril 2.5 mg 05/24/19 10:00 Altace - PO DAILY AMADA Thiamine HCl 250 mg 05/23/19 22:00 05/24/19 06:30 Vitamin B1 Injection - IVPB 250 mg TID AMADA Administration Zolpidem Tartrate 10 mg 05/23/19 22:00 05/23/19 22:39 Ambien - PO 10 mg HS PRN Administration INSOMNIA Last Vital Signs Temp Pulse Resp BP Pulse Ox 98.4 F 74 18 123/70 98 05/24/19 09:00 05/24/19 09:00 05/24/19 09:00 05/24/19 09:00 05/23/19 21:00 General NAD CV S1 S2 RRR no murmur/rub/gallop Lungs CTA B/L no wheezing/rlaes/rhonchi Abdomen soft NT/ND Extremites non pitting edema limited to L foot. hard callous on ball of foot with no active drainage. no fluctance, no warmth or tenderness of the foot Neuro CN II-XII grossly intact, strength and sensation grossly intact all extremities neg pronator drift, negative dysmetria CBCD WBC 5.7 K/mm3 (4.0-10.0) 05/24/19 06:00 RBC 2.77 M/mm3 (4.00-5.60) L 05/24/19 06:00 Hgb 9.4 GM/dL (11.7-16.9) L 05/24/19 06:00 Hct 28.2 % (35.4-49) L 05/24/19 06:00 MCV 101.8 fl (80-96) H 05/24/19 06:00 MCHC 33.4 g/dl (32.0-35.9) 05/24/19 06:00 RDW 14.2 % (11.9-15.9) 05/24/19 06:00 Plt Count 158 K/MM3 (134-434) 05/24/19 06:00 MPV 8.5 fl (7.5-11.1) 05/24/19 06:00 CMP Sodium 135 mmol/L (136-145) L 05/24/19 06:00 Potassium 4.2 mmol/L (3.5-5.1) 05/24/19 06:00 Chloride 103 mmol/L (98-107) 05/24/19 06:00 Carbon Dioxide 25 mmol/L (21-32) 05/24/19 06:00 Anion Gap 7 MMOL/L (8-16) L 05/24/19 06:00 BUN 15.4 mg/dL (7-18) 05/24/19 06:00 Creatinine 0.7 mg/dL (0.55-1.3) 05/24/19 06:00 Calcium 8.2 mg/dL (8.5-10.1) L 05/24/19 06:00 Total Bilirubin 0.9 mg/dL (0.2-1) 05/24/19 06:00 AST 50 U/L (15-37) H 05/24/19 06:00 ALT 31 U/L (13-61) 05/24/19 06:00 Alkaline Phosphatase 86 U/L (45-117) 05/24/19 06:00 Total Protein 6.9 g/dl (6.4-8.2) 05/24/19 06:00 Albumin 3.3 g/dl (3.4-5.0) L 05/24/19 06:00 ASSESSMENT AND PLAN: 53yo M with PMH HTN, DM, Continuous nicotine and ETOH abuse and seizure presented to the ER after shaking episode at home. and continued to have 3 more seizures in the hospital 1. Breakthrough seizure- likely due to medication non-compliance. keppra increased by neuro. will need to monitor mental status regarding this as he states he was foggy on lower dose. will f/u with neuro this week for further workup and testing as needed.no driving or operating heavy machinery until cleared by neuro 2. Foot swelling- does not appear infected. Foot XR negative for cellulitis or OM. 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 MAcrocytic anemia- Hgb at baseline. no signs of bleeding no indication for transfusion 4. Continuous polysubstance abuse- ETOH level low. agreeable to nicorette gum while hospitalized. counseled on risks of continued tobacco and ETOH use. verbalized understanding 5. DM- A1c 7.7 which is improved from A1c earlier this year. states he very complaint on sliding scale given to him by PMD. offered pills if would prefer but states he is comfortable with insulin and claims complaince. recommend further dietary adjustments and yearly optho/podiatry evals. 6. HTN- cont home medication 7. DVT ppx- lovenox 8. spoke with present at bedside. all questions answered. verbalized understanding and agreement with plan. will d/c home with follow up recommendations. Visit type - Emergency Visit Emergency Visit: Yes ED Registration Date: 05/23/19 Care time: The patient presented to the Emergency Department on the above date and was hospitalized for further evaluation of their emergent condition. - New Patient This patient is new to me today: No - Critical Care Critical Care patient: No - Discharge Referral Referred to [facility] Med P.C[facility] No
--- NOTE | 2019-05-24 10:30 | DS ---
Physical Exam: SUBJECTIVE: Patient seen and examined. asymptomatic. no seiuzre like activity or sensations. denies CP, SOB, feveer, chills, N/V/C/d or auras OBJECTIVE: Vital Signs Period Temp Pulse Resp BP Sys/Ren Pulse Ox Last 24 Hr 98.1 F-99.1 F 74-91 16-20 123-148/65-80 98-98 PHYSICAL EXAM GENERAL: The patient is awake, alert, and fully oriented, in no acute distress. HEAD: Normal with no signs of trauma. EYES: PERRL, extraocular movements intact, sclera anicteric, conjunctiva clear. ENT: Ears normal, nares patent, oropharynx clear without exudates, moist mucous membranes. NECK: Trachea midline, full range of motion, supple. LUNGS: Breath sounds equal, clear to auscultation bilaterally, no wheezes, no crackles, no accessory muscle use. HEART: Regular rate and rhythm, S1, S2 without murmur, rub or gallop. ABDOMEN: Soft, nontender, nondistended, normoactive bowel sounds, no guarding, no rebound, no hepatosplenomegaly, no masses. EXTREMITIES: 2+ pulses, warm, well-perfused, non pitting edema limited to foot. harneded callous on bottom of foot NEUROLOGICAL: Cranial nerves II through XII grossly intact. Normal speech, gait not observed. PSYCH: Normal mood, normal affect. SKIN: Warm, dry, normal turgor, no rashes or lesions noted. LABS Laboratory Results - last 24 hr 05/23/19 05/23/19 05/23/19 12:10 12:10 12:10 WBC 6.6 RBC 3.10 L Hgb 10.4 L Hct 31.2 L MCV 100.8 H MCH 33.6 MCHC 33.4 RDW 14.2 Plt Count 168 D MPV 8.3 Absolute Neuts (auto) 3.1 Neutrophils % 47.4 Lymphocytes % 31.6 Monocytes % 18.7 H Eosinophils % 1.4 Basophils % 0.9 Nucleated RBC % 0 Sodium 136 Potassium 4.3 Chloride 103 Carbon Dioxide 27 Anion Gap 6 L BUN 24.6 H Creatinine 0.9 Est GFR (CKD-EPI)AfAm 111.05 Est GFR (CKD-EPI)NonAf 95.81 Random Glucose 113 H Hemoglobin A1c % Calcium 9.5 Phosphorus Magnesium Total Bilirubin 0.6 AST 66 H ALT 38 Alkaline Phosphatase 99 Creatine Kinase 82 Troponin I < 0.02 Total Protein 8.0 Albumin 4.1 Lipase 34 L Vitamin B12 TSH Alcohol, Quantitative 05/23/19 05/24/19 05/24/19 16:16 06:00 06:00 WBC RBC Hgb Hct MCV MCH MCHC RDW Plt Count MPV Absolute Neuts (auto) Neutrophils % Lymphocytes % Monocytes % Eosinophils % Basophils % Nucleated RBC % Sodium 135 L Potassium 4.2 Chloride 103 Carbon Dioxide 25 Anion Gap 7 L BUN 15.4 Creatinine 0.7 Est GFR (CKD-EPI)AfAm 123.13 Est GFR (CKD-EPI)NonAf 106.24 Random Glucose 142 H Hemoglobin A1c % 7.7 H Calcium 8.2 L Phosphorus 2.3 L Magnesium 1.3 L Total Bilirubin 0.9 AST 50 H ALT 31 Alkaline Phosphatase 86 Creatine Kinase Troponin I Total Protein 6.9 Albumin 3.3 L Lipase Vitamin B12 389 TSH 2.47 D Alcohol, Quantitative < 3.0 05/24/19 06:00 WBC 5.7 RBC 2.77 L Hgb 9.4 L Hct 28.2 L MCV 101.8 H MCH 34.0 H MCHC 33.4 RDW 14.2 Plt Count 158 MPV 8.5 Absolute Neuts (auto) 2.7 Neutrophils % 47.1 Lymphocytes % 34.9 Monocytes % 15.9 H Eosinophils % 1.5 Basophils % 0.6 Nucleated RBC % 0 Sodium Potassium Chloride Carbon Dioxide Anion Gap BUN Creatinine Est GFR (CKD-EPI)AfAm Est GFR (CKD-EPI)NonAf Random Glucose Hemoglobin A1c % Calcium Phosphorus Magnesium Total Bilirubin AST ALT Alkaline Phosphatase Creatine Kinase Troponin I Total Protein Albumin Lipase Vitamin B12 TSH Alcohol, Quantitative HOSPITAL COURSE: Date of Admission:05/23/19 Date of Discharge: 05/24/19 Admitting diagnosis: Breakthrough seizure Pre hospital course 53 year old male with past medical history of seizure disorder, HTN, DM, EtOH abuse, presented to the ED after a witnesses seizure-like activity at home. At around 10am this morning, patient was sitting down when he suddenly called his , he was unable to tell his what he was feeling, but he gestured to his throat and suddenly both arms were shaking. This lasted for about 5 minutes , and patient reported he was aware while it was happening, and he was closing his eyes to try to calm himself down. The shaking resolved on its own. After the episode, patient was having expressive aphasia, speaking few words at a time ad repetitive words. His brought him then to the hospital. At the hospital, ED staff reported another episode of bilateral arm shaking. He received IV Ativan 2mg and the seizures resolved. Patient reported he has not been taking his Keppra at home because he does not like the side effect, and has not been taking it for more than 4 months. Patient also reports his right toe was swollen since yesterday to which he follows up with Dr. San, but denies pain, redness. Patient denies any fever, chills, headache, dizziness, chest pain, SOB, abdominal pain, diarrhea, urinary symptoms. Subsequent hospital course admitted to medicine. no repeat seizure activity. loaded with Keppra 1g IV and started on 750mg. tolerated well. on labs negative. was d/c home on keppra at increased dose. recommend to abstain from smoking and drinking with nicorette gum supplied. Minutes to complete discharge: 40 Discharge Summary Reason For Visit: DIABETIC FOOT ULCER SEIZURE Current Active Problems Diabetic foot ulcer (Acute) Seizure (Acute) - Instructions Diet, Activity, Other Instructions: You were observed in the hospital because of the seizure you had at home as well as in our ER department. This likely occurred because you stopped taking your keppra medication. Your keppra was re-started at a higher dose. PLease continue at 750mg twice a day. No driving or operating heavy machinery until cleared by neurology Continue your other home medications including your insulin that you take. Follow a diabetic diet Continue to abstain from smoking cigarettes or drinking alcohol as these are detrimental to your health. Continue with the nicorette gum to aid in your cessation. Discuss with your primary care doctor alternative therapies if needed to aid in your quitting Follow up with neurology in 1 week. Assess your response to higher dose keppra. You may require further testing as outpatient Follow up wtih your primary care doctor in 1 week Return to the ER if you develop chest pain or another seizure. Referrals: Gerald Pritchett MD [Primary Care Provider] - Omari Reed MD [Staff Physician] - Disposition: HOME - Home Medications Comprehensive Discharge Medication List: Ambulatory Orders Insulin Sliding Scale [Novolog Vial Sliding Scale -] 1 vial SQ ACHS units 10/08 levETIRAcetam [Keppra -] 500 mg PO BID tablet 10/08/18 Ramipril 2.5 mg PO DAILY 05/23/19 Zolpidem Tartrate [Ambien] 10 mg PO HS 05/23/19 This patient is new to me today: No Emergency Visit: Yes ED Registration Date: 05/23/19 Care time: The patient presented to the Emergency Department on the above date and was hospitalized for further evaluation of their emergent condition. Critical Care patient: No - Discharge Referral Referred to [facility] Yes Physician Referral: Gerald Gutierrez MD ([facility])
== END 2019-05-24 12:53 | disposition home or self-care (01) | DRG 53 ==
LOC: JER 10:45 → JERBED 16:09 → J6S 17:35
PROVIDERS: ADMIT Internal Medicine; ATTEND Internal Medicine
DX: G40.209 Localization-related (focal) (partial) symptomatic epilepsy and epileptic syndromes with complex partial seizures, not intractable, without status epilepticus (principal); I10 Essential (primary) hypertension; D53.9 Nutritional anemia, unspecified; Z91.14 Patient's other noncompliance with medication regimen; E11.42 Type 2 diabetes mellitus with diabetic polyneuropathy; E11.621 Type 2 diabetes mellitus with foot ulcer; F10.10 Alcohol abuse, uncomplicated
CPT/HCPCS: 36415; 71045-TC-FY; 73630-TC-LT; 80053; 80177; 80307; 82550; 82607; 82962; 83036; 83690; 83735; 84100; 84443; 84484; 85025; 93005; 93010; 99283-25